=== PATIENT | female | born 1945 | race Caucasian/White ===

== ENCOUNTER 2022-08-14 16:59 | Emergency (ER) | payer OTHER, SELFPAY ==
--- NOTE | 2022-08-14 17:12 | ED_ITS ---
HPI - Headache General Chief Complaint: General Medical <Jade Crenshaw CNP - Last Filed: 08/14/22 17:22> Stated Complaint: headache, knee pain <Jade Crenshaw CNP - Last Filed: 08/14/22 17:22> Time Seen by Provider: 08/14/22 21:07 <Jade Crenshaw CNP - Last Filed: 08/14/22 17:22> Source: patient <Fatoumata Murry MD - Last Filed: 08/15/22 00:35> Mode of arrival: ambulatory <Fatoumata Murry MD - Last Filed: 08/15/22 00:35> Limitations: no limitations <Fatoumata Murry MD - Last Filed: 08/15/22 00:35> History of Present Illness HPI Narrative: Patient comes to the emergency room stating that she thinks her electrolytes are off. Patient complaining of headaches, muscle cramps, fatigue, muscle weakness, and confusion; misplacing things, can not think straight. Symptoms are all progressing, not improving, particularly worse over the past 2 weeks. Patient denies chest pain or shortness of breath, no nausea vomiting or diarrhea. No URI or UTI symptoms. <Fatoumata Murry MD - Last Filed: 08/15/22 00:35> Related Data Home Medications: Previous Rx's Medication Instructions Recorded amlodipine 2.5 mg tablet 2.5 mg PO DAILY #14 tabs 08/14/22 nitrofurantoin 100 mg PO Q12H 7 days #14 caps 08/14/22 monohydrate/macrocrystals 100 mg capsule (Macrobid) olanzapine 5 mg tablet 5 mg PO BEDTIME PRN insomnia #10 08/14/22 tabs <Jade Crenshaw CNP - Last Filed: 08/14/22 17:22> Allergies/Adverse Reactions: Allergies Allergy/AdvReac Type Severity Reaction Status Date / Time cyclobenzaprine Allergy Severe I WENT Unverified 02/23/20 14:44 [From FLEXERIL] BLIND bupropion [From WELLBUTRIN] Allergy Intermediate Swelling, Unverified 07/03/22 10:25 ST, Itchy tongue dapsone Allergy Unknown Petachae Unverified 11/30/17 00:00 divalproex sodium Allergy Unknown INSOMNIA,AND Unverified 02/23/20 14:44 [From DEPAKOTE] OTHER RXNS doxycycline [DOXYCYCLINE] Allergy Unknown UNKNOWN, Unverified 02/23/20 14:44 tongue swelling Flexeril Allergy Unknown lost vision Unverified 11/30/17 00:00 gabapentin [GABAPENTIN] Allergy Unknown UNKNOWN, Unverified 02/23/20 14:44 unsure lamotrigine [LAMOTRIGINE] Allergy Unknown UNKNOWN Unverified 02/23/20 14:44 mirtazapine [MIRTAZAPINE] Allergy Unknown BEGAN OVER Unverified 02/23/20 14:44 EATING pantoprazole [PANTOPRAZOLE] Allergy Unknown HAD Unverified 02/23/20 14:44 REACTION , tongue swelling naproxen [NAPROXEN] AdvReac Unknown UNKNOWN Unverified 02/23/20 14:44 <Jade Crenshaw CNP - Last Filed: 08/14/22 17:22> Review of Systems Review of Systems: Constitutional : No Weight loss, No Fever, No Chills, No Night Sweats, complaining of fatigue ENT/Mouth : No Hearing loss, No Ear Pain, No Nasal Congestion, No Sinus Pain, No Hoarseness, No sore throat, No Rhinorrhea, No Swallowing Difficulty Eyes: No Eye Pain, No Swelling, No Redness, No Foreign Body, No Discharge, No Vision Changes Cardiovascular : No Chest Pain, No SOB, No Dyspnea on Exertion, No Orthopnea, No Edema, No Palpitations Respiratory : No Cough, No Sputum, No Wheezing, No Smoke Exposure, No Dyspnea Gastrointestinal : No Nausea, No Vomiting, No Diarrhea, No Constipation, No abdominal Pain, No Hematochezia, No Melena Genitourinary : no irregular bleeding, No Dysuria, No Urinary Frequency, No Hematuria, No Urinary Incontinence, No Urgency, No Flank Pain, No Urinary Flow Changes, No Hesitancy Musculoskeletal : muscle cramps, fatigue, all body muscle weakness Skin : No Skin Lesions, No rash Neuro : No Weakness, No Numbness, No Paresthesias, No Loss of Consciousness, No Dizziness, No Headache Psych : No Anxiety/Panic, No Depression, No SI/HI/AH/VH, No Social Issues, Heme/Lymph: No Bruising, No Bleeding,No Lymphadenopathy Endocrine : No Polyuria, No Polydipsia, No Temperature Intolerance <Fatoumata Murry MD - Last Filed: 08/15/22 00:35> [facility] Social History Social History: Social History Advance Directives: No Advance Directives Information Provided: No <Jade Crenshaw CNP - Last Filed: 08/14/22 17:22> Physical Exam Vital Signs: Vital Signs: Last Vital Signs Temp 98.3 F 08/14/22 21:35 Pulse 60 08/14/22 21:35 Resp 15 08/14/22 21:35 BP 180/78 H 08/14/22 21:35 Pulse Ox 100 08/14/22 21:35 O2 Del Method 08/14/22 21:35 BMI result Body Mass Index 26.5 <Jade Crenshaw CNP - Last Filed: 08/14/22 17:22> Vital Signs: Last Vital Signs Temp 98.3 F 08/14/22 21:35 Pulse 60 08/14/22 21:35 Resp 15 08/14/22 21:35 BP 180/78 H 08/14/22 21:35 Pulse Ox 100 08/14/22 21:35 O2 Del Method 08/14/22 21:35 BMI result Body Mass Index 26.5 <Fatoumata Murry MD - Last Filed: 08/15/22 00:35> Course Course Course Narrative: This is an RME: Additional HPI, ROS, PE not included below will be deferred to primary provider. Patient is a 76-year-old female who presents to the emergency department for evaluation of multiple complaints. She reports concern that some things not right with my electrolytes , expressing issues with sodium, not certain if high or low, reportedly an ongoing problem since December 2021. Reports headaches, muscle cramps, fatigue, muscle weakness, and confusion; misplacing things, can not think straight. Symptoms are all progressing, not improving, particularly worse over the past 2 weeks. PCP is through [facility], has been unable to get an appointment. <Jade Crenshaw CNP - Last Filed: 08/14/22 17:22> Medical Decision Making Medical Decision Making MDM Narrative: Patient's hematology unremarkable, patient's electrolytes are perfect. Patient tested negative for COVID and influenza. -urinalysis pending -blood pressure 188/88 initially, blood pressure check pending. Recheck blood pressure was 180/78. -patient denies any headache, visual changes. Patient states that she feels very anxious, requesting a benzo to help her relax. -also, discussed with the patient that she has a mild UTI, patient was given the 1st dose of Macrobid in the emergency room. -patient requesting to be treated for hypertension. I discussed with the patient that we can treat anxiety 1st, then she can follow up with the primary care physician. However, patient very anxious that she does not have any hypertensive medication. Patient agreeable to take a blood pressure medication tablet here in the ED and then will pick it up at her pharmacy. -patient states that she has been complaining of insomnia in the last few days, requesting medication for insomnia -I ordered several medications for her including her 1st day of antibiotics. I was informed by the patient's nurse that the patient eloped before getting any medications, repeat blood pressure or papers <Ftaoumata Murry MD - Last Filed: 08/15/22 00:35> Differential Diagnosis Differential Diagnoses: The differential diagnosis associated with the presentation includes (Viral syndrome, hypertension, anxiety) <Fatoumata Murry MD - Last Filed: 08/15/22 00:35> Lab Data MDM Lab Attestation statement: I reviewed the patient's lab results. <Fatoumata Murry MD - Last Filed: 08/15/22 00:35> Result Diagrams: 08/14/22 17:36 08/14/22 17:36 <Jade Crenshaw CNP - Last Filed: 08/14/22 17:22> Labs: Lab Results 08/14/22 08/14/22 08/14/22 Range/Units 17:36 17:36 17:36 WBC 7.6 (4.8-10.8) X10*3/uL RBC 4.38 (4.20-5.50) X10*6/uL Hgb 13.1 (12.0-16.0) g/dl Hct 39.5 (37.0-47.0) % MCV 90.2 (80.0-98.0) fL MCH 29.9 (27.0-33.0) pg MCHC 33.2 (31.0-35.0) g/dl RDW 12.6 (11.0-16.0) % Plt Count 235 (160-400) X10*3/uL MPV 9.5 (9.4-12.3) fL Immature Gran % (Auto) 0.1 (0.0-0.4) % Neut % (Auto) 46.2 (45-73) % Lymph % (Auto) 41.4 H (20-40) % [place] % (Auto) 7.2 (2-11) % Eos % (Auto) 4.2 H (0-4) % Baso % (Auto) 0.9 (0-2) % Lymph # (Auto) 3.2 (1.2-4.9) X10*3/uL [place] # (Auto) 0.6 (0.1-1.2) X10*3/uL Eos # (Auto) 0.3 (0.0-0.4) X10*3/uL Baso # (Auto) 0.1 (0.0-0.2) X10*3/uL Abs Immat Gran (auto) 0.01 (0.00-0.03) X10*3/uL Absolute Neuts (auto) 3.5 (2.0-8.3) x10*3/uL Absolute Nucleated RBC 0.000 (0.0-0.012) X10*3/uL Nucleated RBC % (auto) 0.0 (0.0-0.2) /100WBC Sodium 138 (135-145) mmol/L Potassium 4.1 (3.3-5.1) mmol/L Chloride 101 (96-108) mmol/L Carbon Dioxide 26 (22-29) mmol/L Anion Gap 15 (12-20) BUN 16 (9-16) mg/dL Creatinine 0.87 (0.5-1.4) mg/dL Estim Creat Clear Calc 47.3 Estimated GFR > 60 Random Glucose 101 (60-115) mg/dL Calcium 9.6 (8.4-10.2) mg/dL Magnesium 1.9 (1.6-2.6) mg/dL Total Bilirubin 0.5 (0.0-1.0) mg/dL AST 20 (5-31) U/L ALT 10 (0-31) U/L Alkaline Phosphatase 86 (39-117) U/L Troponin I High Sens (<3.5-17.0) ng/L Total Protein 6.7 (6.5-8.0) g/dL Albumin 4.3 (3.5-5.0) g/dL Lipase 74 (8-78) U/L Urine Color Urine Appearance Urine pH (5.0-9.0) Ur Specific [place] (1.005-1.025) Urine Protein (Neg-Trace) mg/dL Urine Glucose (UA) (Negative) mg/dL Urine Ketones (Negative) mg/dL Urine Blood (Negative) Urine Nitrite (Negative) Ur Leukocyte Esterase (Negative) Urine RBC (0-2) /HPF Urine WBC (0-5) /HPF Ur Squamous Epith Cells (0-2) /HPF Urine Bacteria (None Seen) Hyaline Casts (0-2) /LPF COVID-19 (SONIYA) (Negative) COVID-19 Clin Com Influenza Type A (LOVE) Negative (Negative) Influenza Type B (LOVE) Negative (Negative) Influenza A & B Note See Note 08/14/22 08/14/22 08/14/22 Range/Units 17:36 17:36 21:23 WBC (4.8-10.8) X10*3/uL RBC (4.20-5.50) X10*6/uL Hgb (12.0-16.0) g/dl Hct (37.0-47.0) % MCV (80.0-98.0) fL MCH (27.0-33.0) pg MCHC (31.0-35.0) g/dl RDW (11.0-16.0) % Plt Count (160-400) X10*3/uL MPV (9.4-12.3) fL Immature Gran % (Auto) (0.0-0.4) % Neut % (Auto) (45-73) % Lymph % (Auto) (20-40) % [place] % (Auto) (2-11) % Eos % (Auto) (0-4) % Baso % (Auto) (0-2) % Lymph # (Auto) (1.2-4.9) X10*3/uL [place] # (Auto) (0.1-1.2) X10*3/uL Eos # (Auto) (0.0-0.4) X10*3/uL Baso # (Auto) (0.0-0.2) X10*3/uL Abs Immat Gran (auto) (0.00-0.03) X10*3/uL Absolute Neuts (auto) (2.0-8.3) x10*3/uL Absolute Nucleated RBC (0.0-0.012) X10*3/uL Nucleated RBC % (auto) (0.0-0.2) /100WBC Sodium (135-145) mmol/L Potassium (3.3-5.1) mmol/L Chloride (96-108) mmol/L Carbon Dioxide (22-29) mmol/L Anion Gap (12-20) BUN (9-16) mg/dL Creatinine (0.5-1.4) mg/dL Estim Creat Clear Calc Estimated GFR Random Glucose (60-115) mg/dL Calcium (8.4-10.2) mg/dL Magnesium (1.6-2.6) mg/dL Total Bilirubin (0.0-1.0) mg/dL AST (5-31) U/L ALT (0-31) U/L Alkaline Phosphatase (39-117) U/L Troponin I High Sens 6.8 (<3.5-17.0) ng/L Total Protein (6.5-8.0) g/dL Albumin (3.5-5.0) g/dL Lipase (8-78) U/L Urine Color Yellow Urine Appearance Clear Urine pH 5.5 (5.0-9.0) Ur Specific [place] <= 1.005 (1.005-1.025) Urine Protein Negative (Neg-Trace) mg/dL Urine Glucose (UA) Negative (Negative) mg/dL Urine Ketones Negative (Negative) mg/dL Urine Blood Negative (Negative) Urine Nitrite Negative (Negative) Ur Leukocyte Esterase Large (3+) H (Negative) Urine RBC 0-2 (0-2) /HPF Urine WBC 11-20 H (0-5) /HPF Ur Squamous Epith Cells 0-2 (0-2) /HPF Urine Bacteria None Seen (None Seen) Hyaline Casts 0-2 (0-2) /LPF COVID-19 (SONIYA) Negative (Negative) COVID-19 Clin Com See Note Influenza Type A (LOVE) (Negative) Influenza Type B (LOVE) (Negative) Influenza A & B Note <Jade Rudolph Flower, [employer] - Last Filed: 08/14/22 17:22> Lab Results 08/14/22 08/14/22 08/14/22 Range/Units 17:36 17:36 17:36 WBC 7.6 (4.8-10.8) X10*3/uL RBC 4.38 (4.20-5.50) X10*6/uL Hgb 13.1 (12.0-16.0) g/dl Hct 39.5 (37.0-47.0) % MCV 90.2 (80.0-98.0) fL MCH 29.9 (27.0-33.0) pg MCHC 33.2 (31.0-35.0) g/dl RDW 12.6 (11.0-16.0) % Plt Count 235 (160-400) X10*3/uL MPV 9.5 (9.4-12.3) fL Immature Gran % (Auto) 0.1 (0.0-0.4) % Neut % (Auto) 46.2 (45-73) % Lymph % (Auto) 41.4 H (20-40) % [place] % (Auto) 7.2 (2-11) % Eos % (Auto) 4.2 H (0-4) % Baso % (Auto) 0.9 (0-2) % Lymph # (Auto) 3.2 (1.2-4.9) X10*3/uL [place] # (Auto) 0.6 (0.1-1.2) X10*3/uL Eos # (Auto) 0.3 (0.0-0.4) X10*3/uL Baso # (Auto) 0.1 (0.0-0.2) X10*3/uL Abs Immat Gran (auto) 0.01 (0.00-0.03) X10*3/uL Absolute Neuts (auto) 3.5 (2.0-8.3) x10*3/uL Absolute Nucleated RBC 0.000 (0.0-0.012) X10*3/uL Nucleated RBC % (auto) 0.0 (0.0-0.2) /100WBC Sodium 138 (135-145) mmol/L Potassium 4.1 (3.3-5.1) mmol/L Chloride 101 (96-108) mmol/L Carbon Dioxide 26 (22-29) mmol/L Anion Gap 15 (12-20) BUN 16 (9-16) mg/dL Creatinine 0.87 (0.5-1.4) mg/dL Estim Creat Clear Calc 47.3 Estimated GFR > 60 Random Glucose 101 (60-115) mg/dL Calcium 9.6 (8.4-10.2) mg/dL Magnesium 1.9 (1.6-2.6) mg/dL Total Bilirubin 0.5 (0.0-1.0) mg/dL AST 20 (5-31) U/L ALT 10 (0-31) U/L Alkaline Phosphatase 86 (39-117) U/L Troponin I High Sens (<3.5-17.0) ng/L Total Protein 6.7 (6.5-8.0) g/dL Albumin 4.3 (3.5-5.0) g/dL Lipase 74 (8-78) U/L Urine Color Urine Appearance Urine pH (5.0-9.0) Ur Specific [place] (1.005-1.025) Urine Protein (Neg-Trace) mg/dL Urine Glucose (UA) (Negative) mg/dL Urine Ketones (Negative) mg/dL Urine Blood (Negative) Urine Nitrite (Negative) Ur Leukocyte Esterase (Negative) Urine RBC (0-2) /HPF Urine WBC (0-5) /HPF Ur Squamous Epith Cells (0-2) /HPF Urine Bacteria (None Seen) Hyaline Casts (0-2) /LPF COVID-19 (SONIYA) (Negative) COVID-19 Clin Com Influenza Type A (LOVE) Negative (Negative) Influenza Type B (LOVE) Negative (Negative) Influenza A & B Note See Note 08/14/22 08/14/22 08/14/22 Range/Units 17:36 17:36 21:23 WBC (4.8-10.8) X10*3/uL RBC (4.20-5.50) X10*6/uL Hgb (12.0-16.0) g/dl Hct (37.0-47.0) % MCV (80.0-98.0) fL MCH (27.0-33.0) pg MCHC (31.0-35.0) g/dl RDW (11.0-16.0) % Plt Count (160-400) X10*3/uL MPV (9.4-12.3) fL Immature Gran % (Auto) (0.0-0.4) % Neut % (Auto) (45-73) % Lymph % (Auto) (20-40) % [place] % (Auto) (2-11) % Eos % (Auto) (0-4) % Baso % (Auto) (0-2) % Lymph # (Auto) (1.2-4.9) X10*3/uL [place] # (Auto) (0.1-1.2) X10*3/uL Eos # (Auto) (0.0-0.4) X10*3/uL Baso # (Auto) (0.0-0.2) X10*3/uL Abs Immat Gran (auto) (0.00-0.03) X10*3/uL Absolute Neuts (auto) (2.0-8.3) x10*3/uL Absolute Nucleated RBC (0.0-0.012) X10*3/uL Nucleated RBC % (auto) (0.0-0.2) /100WBC Sodium (135-145) mmol/L Potassium (3.3-5.1) mmol/L Chloride (96-108) mmol/L Carbon Dioxide (22-29) mmol/L Anion Gap (12-20) BUN (9-16) mg/dL Creatinine (0.5-1.4) mg/dL Estim Creat Clear Calc Estimated GFR Random Glucose (60-115) mg/dL Calcium (8.4-10.2) mg/dL Magnesium (1.6-2.6) mg/dL Total Bilirubin (0.0-1.0) mg/dL AST (5-31) U/L ALT (0-31) U/L Alkaline Phosphatase (39-117) U/L Troponin I High Sens 6.8 (<3.5-17.0) ng/L Total Protein (6.5-8.0) g/dL Albumin (3.5-5.0) g/dL Lipase (8-78) U/L Urine Color Yellow Urine Appearance Clear Urine pH 5.5 (5.0-9.0) Ur Specific [place] <= 1.005 (1.005-1.025) Urine Protein Negative (Neg-Trace) mg/dL Urine Glucose (UA) Negative (Negative) mg/dL Urine Ketones Negative (Negative) mg/dL Urine Blood Negative (Negative) Urine Nitrite Negative (Negative) Ur Leukocyte Esterase Large (3+) H (Negative) Urine RBC 0-2 (0-2) /HPF Urine WBC 11-20 H (0-5) /HPF Ur Squamous Epith Cells 0-2 (0-2) /HPF Urine Bacteria None Seen (None Seen) Hyaline Casts 0-2 (0-2) /LPF COVID-19 (SON[facility]YA) Negative (Negative) COVID-19 Clin Com See Note Influenza Type A (LOVE) (Negative) Influenza Type B (LOVE) (Negative) Influenza A & B Note <Fatoumata Murry MD - Last Filed: 08/15/22 00:35> Discharge Plan Discharge Clinical Impression: Urinary tract infection, Hypertension, Insomnia <Jade Crenshaw CNP - Last Filed: 08/14/22 17:22> Patient Disposition: Elopement <Jade Crenshaw CNP - Last Filed: 08/14/22 17:22> Instructions: Hypertension (ED), Insomnia (ED), Urinary Tract Infection in Older Adults (ED) <Jade Crenshaw CNP - Last Filed: 08/14/22 17:22> Additional Instructions: Please follow-up with your primary care physician tomorrow. If you have any worsening or new symptoms, please return to the emergency room or call 911 <Jade Crenshaw CNP - Last Filed: 08/14/22 17:22> Prescriptions: New nitrofurantoin monohyd/m-cryst [Macrobid] 100 mg capsule 100 mg PO Q12H 7 Days Qty: 14 0RF Rx Instructions: must administer with a meal/food amlodipine 2.5 mg tablet 2.5 mg PO DAILY Qty: 14 0RF olanzapine 5 mg tablet 5 mg PO BEDTIME PRN (Reason: insomnia) Qty: 10 0RF <Jade Crenshaw CNP - Last Filed: 08/14/22 17:22>
[2022-08-14 17:19] VITALS: BP 189/97; PULSE 73; RESP 18; TEMP 36.4; O2SAT 97; BMI 26.5
--- NOTE | 2022-08-14 17:22 | ECG_ITS ---
Test Reason : WEAKNESS Blood Pressure : / mmHG Vent. Rate : 061 BPM Atrial Rate : 061 BPM P-R Int : 188 ms QRS Dur : 078 ms QT Int : 392 ms P-R-T Axes : 072 025 044 degrees QTc Int : 394 ms Normal sinus rhythm Normal ECG When compared with ECG of 26-MAY-2017 12:08, No significant change was found Referred By: Jade Crenshaw Electronically Signed By:HILDA TORRE
[2022-08-14 17:43] LABS: MANUAL DIFF FLAG NO
[2022-08-14 17:50] LABS: Basophils Absolute Auto 0.1 X10*3/uL (0.0-0.2); Basophils Percent Auto 0.9 % (0-2); Eosinophils Absolute Auto 0.3 X10*3/uL (0.0-0.4); Eosinophils Percent Auto 4.2 % (0-4); Hematocrit 39.5 % (37.0-47.0); Hemoglobin 13.1 g/dl (12.0-16.0); Imm Gran Abs Auto 0.01 X10*3/uL (0.00-0.03); Imm Gran Pct Auto 0.1 % (0.0-0.4); Lymphocytes Absolute Auto 3.2 X10*3/uL (1.2-4.9); Lymphocytes Percent Auto 41.4 % (20-40); Mean Corpuscular HGB Conc 33.2 g/dl (31.0-35.0); Mean Corpuscular Hemoglobin 29.9 pg (27.0-33.0); Mean Corpuscular Volume 90.2 fL (80.0-98.0); Mean Platelet Volume 9.5 fL (9.4-12.3); Monocytes Absolute Auto 0.6 X10*3/uL (0.1-1.2); Monocytes Percent Auto 7.2 % (2-11); Neutrophils Absolute Auto 3.5 x10*3/uL (2.0-8.3); Neutrophils Percent Auto 46.2 % (45-73); Platelet Count 235 X10*3/uL (160-400); Red Blood Count 4.38 X10*6/uL (4.20-5.50); Red Cell Distribution Width 12.6 % (11.0-16.0); White Blood Count 7.6 X10*3/uL (4.8-10.8)
[2022-08-14 18:03] LABS: Alanine Aminotransferase 10 U/L (0-31); Albumin Level 4.3 g/dL (3.5-5.0); Alkaline Phosphatase 86 U/L (39-117); Anion Gap 15 (12-20); Aspartate Amino Transferase 20 U/L (5-31); Bilirubin Total 0.5 mg/dL (0.0-1.0); Blood Urea Nitrogen 16 mg/dL (9-16); Calcium 9.6 mg/dL (8.4-10.2); Carbon Dioxide 26 mmol/L (22-29); Chloride 101 mmol/L (96-108); Creatinine Clr Calc Pharmacy 47.3; Estimated Glomerular Filt Rate > 60; Glucose Random 101 mg/dL (60-115); Lipase 74 U/L (8-78); Magnesium 1.9 mg/dL (1.6-2.6); Potassium 4.1 mmol/L (3.3-5.1); Sodium 138 mmol/L (135-145); Total Protein 6.7 g/dL (6.5-8.0)
[2022-08-14 18:04] LABS: COVID-19 Test Negative (Negative); IDNOW Serial# 16C4AD1C
[2022-08-14 18:08] LABS: IDNOW Serial# BCCEAD1C; Influenza A Negative (Negative); Influenza B2 Negative (Negative)
[2022-08-14 18:10] LABS: Troponin-I High Sensitivity 6.8 ng/L (<3.5-17.0)
[2022-08-14 20:17] VITALS: BP 188/80; PULSE 67; RESP 15; TEMP 36.6; O2SAT 100
[2022-08-14 21:30] LABS: Appearance Urine Clear; Color Urine Yellow; Glucose Urine UA Negative (Negative); Leukocyte Esterase Urine Large (3+) (Negative); Nitrite Urine Negative (Negative); PH 5.5 (5.0-9.0); Specific Gravity - Urine <= 1.005 (1.005-1.025); UMIC TRIGGER UACC YES; Urine Blood Negative (Negative); Urine Ketones Negative (Negative); Urine Protein Negative (Neg-Trace)
[2022-08-14 21:34] LABS: Bacteria Urine None Seen (None Seen); Hyaline Casts Urine 0-2 /LPF (0-2); RBC Urine 0-2 /HPF (0-2); Squamous Epithelial Cell Urine 0-2 /HPF (0-2); UACC Culture Trigger YES
[2022-08-14 21:35] VITALS: BP 180/78; PULSE 60; RESP 15; TEMP 36.8; O2SAT 100
== END 2022-08-15 03:41 | disposition left against medical advice (07) ==
PROVIDERS: Nurse Practitioner Family; Emergency Provider Emergency Medicine
DX: N39.0 Urinary tract infection, site not specified (principal); I10 Essential (primary) hypertension; G47.00 Insomnia, unspecified; R51.9 Headache, unspecified; M25.562 Pain in left knee; M25.561 Pain in right knee; Z20.822 Contact with and (suspected) exposure to COVID-19; Z20.828 Contact with and (suspected) exposure to other viral communicable diseases; Z79.899 Other long term (current) drug therapy
CPT/HCPCS: 36415; 80053; 81001; 83690; 83735; 84484; 85025; 87086; 87502; 87635; 93005; 99283; 99284

== ENCOUNTER 2022-12-12 10:22 | Outpatient (REF) | payer MEDICARE, MEDICAID, SELFPAY ==
[2022-12-12 10:41] LABS: MANUAL DIFF FLAG NO
[2022-12-12 11:59] LABS: Basophils Absolute Auto 0.1 X10*3/uL (0.0-0.2); Basophils Percent Auto 1.2 % (0-2); Eosinophils Absolute Auto 0.3 X10*3/uL (0.0-0.4); Eosinophils Percent Auto 4.9 % (0-4); Hemoglobin 12.5 g/dl (12.0-16.0); Imm Gran Abs Auto 0.02 X10*3/uL (0.00-0.03); Imm Gran Pct Auto 0.3 % (0.0-0.4); Lymphocytes Absolute Auto 1.9 X10*3/uL (1.2-4.9); Lymphocytes Percent Auto 32.8 % (20-40); Mean Corpuscular HGB Conc 32.1 g/dl (31.0-35.0); Mean Corpuscular Hemoglobin 29.6 pg (27.0-33.0); Mean Corpuscular Volume 92.4 fL (80.0-98.0); Mean Platelet Volume 9.3 fL (9.4-12.3); Monocytes Absolute Auto 0.5 X10*3/uL (0.1-1.2); Monocytes Percent Auto 8.3 % (2-11); Neutrophils Absolute Auto 3.1 x10*3/uL (2.0-8.3); Neutrophils Percent Auto 52.5 % (45-73); Platelet Count 268 X10*3/uL (160-400); Red Blood Count 4.22 X10*6/uL (4.20-5.50); Red Cell Distribution Width 12.9 % (11.0-16.0); White Blood Count 5.9 X10*3/uL (4.8-10.8)
[2022-12-12 12:59] LABS: Alanine Aminotransferase 14 U/L (0-31); Albumin Level 4.1 g/dL (3.5-5.0); Alkaline Phosphatase 75 U/L (39-117); Anion Gap 12 (12-20); Aspartate Amino Transferase 24 U/L (5-31); Bilirubin Total 0.5 mg/dL (0.0-1.0); Blood Urea Nitrogen 16 mg/dL (9-16); Calcium 9.8 mg/dL (8.4-10.2); Carbon Dioxide 27 mmol/L (22-29); Chloride 106 mmol/L (96-108); Cholesterol 237 mg/dL; Estimated Glomerular Filt Rate > 60; Free T4 (Free Thyroxine) 0.92 ng/dL (0.71-1.85); Glucose Random 90 mg/dL (60-115); HDL Cholesterol 74 mg/dL; LDL Cholesterol Calculated 150 mg/dl; Potassium 4.6 mmol/L (3.3-5.1); Sodium 140 mmol/L (135-145); Thyroid Stimulating Hormone 0.96 uIU/mL (0.32-4.0); Total Protein 6.9 g/dL (6.5-8.0); Triglycerides 67 mg/dL; Vitamin D 25-OH Total 54.6 ng/mL (>30)
[2022-12-12 13:15] LABS: Folate 19.1 ng/mL (> or = 4.0); Vitamin B12 358 pg/mL (200-900)
== END 2022-12-12 10:23 | disposition home or self-care (01) ==
LOC: HO.LAB 10:22
PROVIDERS: PCP Internal Medicine; Visit Provider Internal Medicine
DX: K21.9 Gastro-esophageal reflux disease without esophagitis (principal); E78.00 Pure hypercholesterolemia, unspecified; M81.0 Age-related osteoporosis without current pathological fracture
CPT/HCPCS: 36415; 80053; 80061; 82306; 82607; 82746; 84439; 84443; 85025

== ENCOUNTER 2022-12-24 14:23 | Outpatient (AMB) | payer MEDICARE, MEDICAID, SELFPAY ==
--- NOTE | 2022-12-24 14:30 | A.OFFVIS_ITS ---
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 Allergies cyclobenzaprine [From FLEXERIL] Allergy (Severe, Verified 11/20/22 12:52) I WENT BLIND bupropion [From WELLBUTRIN] Allergy (Intermediate, Verified 11/20/22 12:52) Swelling, ST, Itchy tongue divalproex sodium [From DEPAKOTE] Allergy (Unknown, Verified 11/20/22 12:52) INSOMNIA,AND OTHER RXNS doxycycline [DOXYCYCLINE] Allergy (Unknown, Verified 11/20/22 13:17) UNKNOWN, tongue swelling Flexeril Allergy (Unknown, Verified 11/20/22 12:52) lost vision gabapentin [GABAPENTIN] Allergy (Unknown, Verified 11/20/22 13:17) UNKNOWN, unsure lamotrigine [LAMOTRIGINE] Allergy (Unknown, Verified 11/20/22 13:17) UNKNOWN HPI HPI Comments History of Present Illness Details Selena is a very pleasant 77 years old female who presents in my office with complains on pain of multiple pain generators. She reports pain in the cervical spine lumbar spine pain radiating in bilateral lower extremities sensation of cramps in bilateral lower extremities, widespread osteoarthritis, pain related to left knee replacement as well as right knee replacement and pain related to multiple surgeries on the neck as well as 1 surgery on the back. She reports that she cannot sleep normally because of her pain cannot do activities of daily living she can take care of herself but she cannot function normally. She is retired and do not work. She is self mobile but she needs walker for ambulation. She reports that heat and weather changes aggravate her pain, prolong sitting and movements aggravate her pain. She reports that cold application decrease her pain. She reports pain is being worse during the nighttime from 20:00. She reports that the pain is less severe during the daytime. In terms of tissue damage she reports her pain S throbbing in the neck stabbing in the lower back sharp in the neck cramping in the legs thighs toes and calfes, hot burning in the legs and in the neck tingling sensation in the hands sore hurting aching and heavy sensation all over the body tiring and exhausting sensation along the body and radiating pain from the neck to the right shoulder as well as radiating pain into bilateral hips. She had multiple images performed in the past including x-rays MRIs mg at [facility] and CT scans. She reports extensive history of physical therapy she reports that she does not do very well with physical therapy or pool therapy she had once chiropractic manipulation she had occupational therapy she tried herbal medications inform of turmeric and she tried 10s unit none of it helped her pain significantly. She reports that medications which helps her pain are Soma in combination with oxycodone/Percocet lidocaine patches and she takes clonazepam for insomnia she is also being prescribed methocarbamol. She reports history of multiple injections in the past including epidurals and intradiscal disc injections. Her past medical history significant for headaches hypertension fatigue dizziness and fainting history of posttraumatic stress disorder for which she needs to go for continuous psychotherapy. She reports pernicious anemia, she developed pernicious anemia when she was treated for stomach ulcer with medications which decreases observe luna of vitamin B12. 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 Her past surgical history is very extensive in 1990 she had C6-C7 fusion and L4- 5 fusion in 2004 she had her fusion extended to C4-C5 and C6. She reports bilateral knee surgeries. Social history she is retired, she does not smoke cigarettes does not drink alcohol does not use recreational drugs. She reports her parents due to homicide and alcohol. [facility] Medical History (Updated 12/24/22 @ 16:18 by Jayden Emerson MD) PUD (peptic ulcer disease) Pulmonary nodule Thyroid nodule Surgical History (Reviewed 12/24/22 @ 14:40 by Venice Mendoza [facility]) H/O cervical spine surgery History of cholecystectomy History of knee replacement History of lumbar surgery Family History (Updated 11/20/22 @ 13:01 by Christen Deleon [facility]) Mother No problems noted. Father No problems noted. Sister Breast cancer Sister Breast cancer Daughter No problems noted. Daughter No problems noted. Daughter No problems noted. Son No problems noted. Son No problems noted. Other Mental health disorder Substance use disorder Social History Housing: House Patient Tobacco Use Status: Never used Tobacco e-Cigarette/Vaping Use: Never Used Second Hand Smoke Exposure: No Current occupational status: retired Cognitive needs: No Hearing needs: No Vision needs: Yes Review of Systems Const All systems reviewed & are unremarkable except as noted in HPI and below Reports no additional complaints ENT Reports Normal hearing present Card Reports as per HPI Resp Reports no additional complaints GI Reports as per HPI Reports no additional complaints Musc Reports as per HPI Neuro Reports as per HPI, Reports Normal hearing present, Denies Abnormal speech present, Denies confusion and Denies Sensory deficit (Neuro) Psych Reports as per HPI and Denies confusion Physical Exam Vital Signs: Last Vital Signs Pulse 70 12/24/22 14:31 BP 187/81 H 12/24/22 14:31 Pulse Ox 96 12/24/22 14:31 Oxygen Delivery Method Room Air 12/24/22 14:31 BMI result Body Mass Index 28.9 Const General: no acute distress; No confusion Nutritional Appearance: obese morbidly obese Orientation/consciousness: patient oriented x3 and No confusion Eyes General: appearance normal, both eyes and all related structures Pupils: Equal, round and reactive pupils present EOM: EOMs intact bilaterally Neck Other: There are 2 scars on anterior right surface of the neck delineating previous cervical fusion surgeries the scar is a very well-healed without signs of infection. Neck: No full ROM Chest Chest palpation & inspection: normal inspection of the chest Resp Effort & Inspection: normal respiratory effort, able to speak in complete sentences, normal respiratory pattern, no audible wheezes and no cough Cardio Jugular venous distension: no JVD GI Inspection: Yes normal to inspection Back/Spine/Pelvis Other: Tenderness on palpation in paraspinal spinal region Ace spine Neuro General: patient oriented x3, gait normal and No confusion Cranial nerves: Yes CN's II-XII intact bilaterally, Yes Equal, round and reactive pupils present, Yes Normal hearing present and Yes Ability to bilaterally elevate shoulders present Speech: No Abnormal speech present Gait exam (Neuro): Normal gait present Motor exam (neuro): 5/5 motor strength present throughout Sensory Exam: No Sensory deficit (Neuro) Extrem General: No pedal edema Psych Speech and movement: Normal speech and movement present Affect: normal affect Attitude: cooperative Thought process: Normal thought process present Thought content: Normal thought content present Insight: Good insight present (Psych) Judgement: Good judgement present (Psych) Assessment & Plan Assessment & Plan (1) Postlaminectomy syndrome, cervical: Code(s): M96.1 - Postlaminectomy syndrome, not elsewhere classified (2) Postlaminectomy syndrome, lumbar: Code(s): M96.1 - Postlaminectomy syndrome, not elsewhere classified (3) Status post total knee replacement, bilateral: Code(s): Z96.653 - Presence of artificial knee joint, bilateral (4) Knee pain, bilateral: Code(s): M25.561 - Pain in right knee; M25.562 - Pain in left knee (5) PTSD (post-traumatic stress disorder): Comment: [facility] 2022 Code(s): F43.10 - Post-traumatic stress disorder, unspecified (6) Osteoporosis: Comment: 2021 Code(s): M81.0 - Age-related osteoporosis without current pathological fracture (7) Blood pressure elevated without history of HTN: Code(s): R03.0 - Elevated blood-pressure reading, without diagnosis of hypertension Plan Of this patient is suffering from multiple pain generators. I offered her multiple procedures which could be instrumental to help her pain. I offered her CrossReader spinal cord stimulator alpha battery with possibility to stimulate her neck as well as lower back with thoracic a lead position. As of her pain from total knee replacement I offered her genicular nerve blocks and following that PNS infrapatellar saphenous versus PNS suprapatellar saphenous versus femoral nerve PNS. Citing her history of PTSD patient expressed opinion that she will not be able pass through the psychological evaluation. She is waiting for an appointment with psychotherapist to improve her PTSD. She is asking me to start her on Soma medication I told her that I do not prescribe this medicine. I offered her baclofen which she said that she was taking it in the past and she had minimal side effects from that she had tizanidine the past and she reported multiple side effects from that. Unless she wants to proceed with psychological evaluation and neuromodulation no new appointment is necessary for this patient. Medications: New baclofen 10 mg PO TID 30 days 90 tabs 6RF Coding Level of Care Code New Pt Level 4 (89081) Diagnoses Postlaminectomy syndrome, cervical M96.1 Postlaminectomy syndrome, lumbar M96.1 Status post total knee replacement, bilateral Z96.653 Knee pain, bilateral M25.561; M25.562 PTSD (post-traumatic stress disorder) F43.10 Osteoporosis M81.0 Blood pressure elevated without history of HTN R03.0
[2022-12-24 14:31] VITALS: BP 187/81; PULSE 70; O2SAT 96; BMI 28.9
== END 2022-12-24 15:09 | disposition home or self-care (01) ==
PROVIDERS: PCP Internal Medicine; Visit Provider Anesthesiology
DX: M96.1 Postlaminectomy syndrome, not elsewhere classified (principal); Z96.653 Presence of artificial knee joint, bilateral; M25.561 Pain in right knee; M25.562 Pain in left knee; F43.10 Post-traumatic stress disorder, unspecified; M81.0 Age-related osteoporosis without current pathological fracture; R03.0 Elevated blood-pressure reading, without diagnosis of hypertension
CPT/HCPCS: 99204

== ENCOUNTER → 2022-12-24 14:23 | Outpatient (BNVA) | payer MEDICARE, MEDICAID, SELFPAY | PROVIDERS: PCP Internal Medicine; Visit Provider Anesthesiology | DX: M96.1 Postlaminectomy syndrome, not elsewhere classified (principal); M25.561 Pain in right knee; M25.562 Pain in left knee; M81.0 Age-related osteoporosis without current pathological fracture; R03.0 Elevated blood-pressure reading, without diagnosis of hypertension; F43.10 Post-traumatic stress disorder, unspecified | CPT/HCPCS: 99202 ==

== ENCOUNTER 2023-01-15 11:57 | Outpatient (AMB) | payer MEDICARE, MEDICAID, SELFPAY ==
[2023-01-15 12:10] VITALS: BP 158/78; PULSE 84; O2SAT 98; BMI 29.8
--- NOTE | 2023-01-15 12:10 | A.OFFPC_ITS ---
Vital Signs 01/15/23 12:10 Height 5 ft 2 in Weight 163 lb BMI 29.8 BP 158/78 H Blood Pressure Location Lt brachial Position Sitting Pulse 84 Pulse Source Pulse Oximeter Pulse Oximetry (%) 98 Oxygen Delivery Method Room Air Intake Visit Reasons: Follow up per dr leonard Allergies cyclobenzaprine [From FLEXERIL] Allergy (Severe, Verified 01/15/23 12:11) I WENT BLIND bupropion [From WELLBUTRIN] Allergy (Intermediate, Verified 01/15/23 12:11) Swelling, ST, Itchy tongue divalproex sodium [From DEPAKOTE] Allergy (Unknown, Verified 01/15/23 12:11) INSOMNIA,AND OTHER RXNS doxycycline [DOXYCYCLINE] Allergy (Unknown, Verified 01/15/23 12:11) UNKNOWN, tongue swelling Flexeril Allergy (Unknown, Verified 01/15/23 12:11) lost vision gabapentin [GABAPENTIN] Allergy (Unknown, Verified 01/15/23 12:11) UNKNOWN, unsure lamotrigine [LAMOTRIGINE] Allergy (Unknown, Verified 01/15/23 12:11) UNKNOWN Medication List - Last Reconciled 01/15/23 by Joaquin Leonard MD baclofen 10 mg PO TID 30 days calcium carbonate (Calcium) 1,000 mg PO DAILY cholecalciferol (vitamin D3) 25 mcg PO DAILY diphenhydramine HCl (Benadryl) 25 mg PO BEDTIME PRN fluoxetine 20 mg PO DAILY losartan 25 mg PO DAILY multivitamin 1 tab PO DAILY omega-3 fatty acids 1,000 mg PO DAILY Tobacco use date assessed: 11/20/22 Fall risk assessment: No Falls in past year Last assessed Fall Risk: 01/15/23 Dental Screening Dental Screen Date: 01/15/23 Did you have a dental visit in the last 12 months?: No Did you have a dental problem in the last 6 months where you did not have access to dental care?: No Was dental information given to patient?: No HPI Follow up per dr leonard HPI Details 77-year-old overweight female with multiple medical problems lumbar degenerative disc disease osteoporosis Schatzki's ring GERD PTSD last seen in November 2022. Patient also noted to have an elevated blood pressure at that time and advised to monitor. Blood work request as well as pain management referral for the low back pain.. Patient sent in an ultrasound that was done on her right leg in January 2022 with concerns about mendoza cyst. CT of the lower extremity showing left knee advanced osteoarthritis x-ray of the hip January 2013 minimal degenerative changes MRI of the lumbar spine January 2017 moderate to severe degenerative disc disease L1-L2 right foraminal disc protrusion L2 right postsurgical changes on L4-L5 and MRI of the lumbar spine October 2022 showing dege nerative changes on the lumbar spine with disc pathology causing compromise of bilateral nerve roots most prominent at the L1-L2 L4-L5 patient did meet with the pain management but patient only wanted Soma on the note.. PAtient is on losartan and was taking 3 x a week and just started QD this week -advised monitor for 2 months. asking for prednisone, gabapentin, Advised no soma and asking for nortriptylline PFSH Medical History (Updated 12/24/22 @ 16:18 by Jayden Emerson MD) PUD (peptic ulcer disease) Pulmonary nodule Thyroid nodule Surgical History H/O cervical spine surgery History of cholecystectomy History of knee replacement History of lumbar surgery Family History (Updated 11/20/22 @ 13:01 by Christen Deleon [facility]) Mother No problems noted. Father No problems noted. Sister Breast cancer Sister Breast cancer Daughter No problems noted. Daughter No problems noted. Daughter No problems noted. Son No problems noted. Son No problems noted. Other Mental health disorder Substance use disorder Social History Housing: [place] Patient Tobacco Use Status: Never used Tobacco e-Cigarette/Vaping Use: Never Used Second Hand Smoke Exposure: No Current occupational status: retired Cognitive needs: No Hearing needs: No Vision needs: Yes Questionnaire PHQ-9 Over the last 2 weeks, how often have you been bothered by any of the following problems? 1. Little interest or pleasure in doing things: several days 2. Feeling down, depressed, or hopeless: several days 3. Trouble falling or staying asleep, or sleeping too much: not at all 4. Feeling tired or having little energy: not at all 5. Poor appetite or overeating: not at all 6. Feeling bad about yourself - or that you are a failure or have let yourself or your family down: not at all 7. Trouble concentrating on things, such as reading the newspaper or watching television: not at all 8. Moving or speaking so slowly that other people could have noticed. Or the opposite - being so fidgety or restless that you have been moving around a lot more than usual: not at all 9. Thoughts that you would be better off or of hurting yourself in some way: not at all Total score: 2 Depression Screening Interpretation: Negative Source: Developed by Drs. Omero Back, Adriana Suarez, Emerson Tanner and colleagues, with an educational blaine from [employer]. Thrive Questionnaire Date Thrive assessed: 11/20/22 AUDIT C Alcohol Use Questionnaire (AUDIT-C) 1. How often do you have a drink containing alcohol?: Never 3. How often do you have six or more drinks on one occasion?: Never Total Score: 0 RAEANN-7 AMB Questionnaire RAEANN-7 Date RAEANN - 7 assessed: 11/20/22 Source: Developed by Drs. Omero Back, Adriana Suarez, Emerson Tanner and colleagues, with an educational blaine from [employer]. Physical exam (Primary Care) Vital Signs: Last Vital Signs Pulse 84 01/15/23 12:10 BP 158/78 H 01/15/23 12:10 Pulse Ox 98 01/15/23 12:10 Oxygen Delivery Method Room Air 01/15/23 12:10 BMI result Body Mass Index 29.8 Tobacco/Smoking Status: Tobacco use Status Tobacco use date assessed 11/20/22 01/15/23 12:18 Patient Tobacco Use Status Never used Tobacco 01/15/23 12:18 e-Cigarette/Vaping Use Never Used 01/15/23 12:18 PHQ-9: PHQ-9 Score PHQ-9: Total score 2 01/15/23 18:58 Depression Screening Interpretation: Negative Thrive Assessment: Date of Thrive Assessment Date Thrive assessed 11/20/22 01/15/23 12:18 Const General: alert; No acute distress Eyes Conjunctivae: conjunctivae normal Resp Auscultation: clear to auscultation bilaterally Cardio Rate: regular rate Rhythm: regular rhythm GI Inspection: Yes normal to inspection Extrem General: Yes normal to inspection and No edema Assessment and Plan Assessment & Plan (1) Postlaminectomy syndrome, lumbar: Code(s): M96.1 - Postlaminectomy syndrome, not elsewhere classified Plan: Keep active avoid lifting (2) PTSD (post-traumatic stress disorder): Comment: [facility] 2022 Code(s): F43.10 - Post-traumatic stress disorder, unspecified Plan: Continue with counseling and therapy (3) GERD (gastroesophageal reflux disease): Comment: 2017 Code(s): K21.9 - Gastro-esophageal reflux disease without esophagitis Plan: Avoid the foods that causes that usually spicy foods, tomato products, juices, coffee, soda and foods that your sensitive to. After eating do not lie down, allow 3-4 hours before in lie down. And keep the head of bed above 30 degrees to avoid the acid from going up. (4) Osteoporosis: Comment: 2021 Code(s): M81.0 - Age-related osteoporosis without current pathological fracture Plan: Calcium and vitamin-D. And keep active (5) Overweight (BMI 25.0-29.9): Code(s): E66.3 - Overweight Plan: Diet and exercise (6) Blood pressure elevated without history of HTN: Code(s): R03.0 - Elevated blood-pressure reading, without diagnosis of hypertension Plan: Admits taking losartan 3x a week only and just started 1 week ago and will have 2 months of this to monitor Medications: New prednisone 4 tabs QD x 2 days then 3 tabs QD x 2 days then 2 tabs Qd x 2 days then 1 tab QD x 2 days PO daily; 20 tabs 0RF J45.909 - Unspecified asthma, uncomplicated, M96.1 - Postlaminectomy syndrome, not elsewhere classified gabapentin 300 mg PO BEDTIME 30 caps 1RF M96.1 - Postlaminectomy syndrome, not elsewhere classified nortriptyline 10 mg PO BEDTIME 30 caps 0RF M96.1 - Postlaminectomy syndrome, not elsewhere classified Coding Level of Care Code Est Pt Level 4 (05626) Diagnoses Postlaminectomy syndrome, lumbar M96.1 PTSD (post-traumatic stress disorder) F43.10 GERD (gastroesophageal reflux disease) K21.9 Osteoporosis M81.0 Overweight (BMI 25.0-29.9) E66.3 Blood pressure elevated without history of HTN R03.0
== END 2023-01-15 12:59 | disposition home or self-care (01) ==
PROVIDERS: PCP Internal Medicine; Visit Provider Internal Medicine
DX: M96.1 Postlaminectomy syndrome, not elsewhere classified (principal); F43.10 Post-traumatic stress disorder, unspecified; K21.9 Gastro-esophageal reflux disease without esophagitis; M81.0 Age-related osteoporosis without current pathological fracture; E66.3 Overweight; R03.0 Elevated blood-pressure reading, without diagnosis of hypertension
CPT/HCPCS: 99214

== ENCOUNTER 2023-02-24 14:13 | Outpatient (AMB) | payer MEDICARE, MEDICAID, SELFPAY ==
[2023-02-24 14:15] VITALS: BP 152/80; PULSE 72; O2SAT 97
--- NOTE | 2023-02-24 14:15 | MHC.PC.OV ---
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 exam Director Human Services Required: No Accompanied by: Self / Same As Patient Allergies cyclobenzaprine [From FLEXERIL] Allergy (Severe, Verified 02/24/23 14:17) I WENT BLIND bupropion [From WELLBUTRIN] Allergy (Intermediate, Verified 02/24/23 14:17) Swelling, ST, Itchy tongue divalproex sodium [From DEPAKOTE] Allergy (Unknown, Verified 02/24/23 14:17) INSOMNIA,AND OTHER RXNS doxycycline [DOXYCYCLINE] Allergy (Unknown, Verified 02/24/23 14:17) UNKNOWN, tongue swelling Flexeril Allergy (Unknown, Verified 02/24/23 14:17) lost vision gabapentin [GABAPENTIN] Allergy (Unknown, Verified 02/24/23 14:17) UNKNOWN, unsure lamotrigine [LAMOTRIGINE] Allergy (Unknown, Verified 02/24/23 14:17) UNKNOWN Medication List - Last Reconciled 02/24/23 by Joaquin Leonard MD calcium carbonate (Calcium) 1,000 mg PO DAILY cholecalciferol (vitamin D3) 25 mcg PO DAILY fluoxetine 20 mg PO DAILY gabapentin 300 mg PO TID losartan 25 mg PO DAILY multivitamin 1 tab PO DAILY omega-3 fatty acids 1,000 mg PO DAILY Tobacco use date assessed: 11/20/22 Fall risk assessment: No Falls in past year Last assessed Fall Risk: 02/24/23 Dental Screening Dental Screen Date: 02/24/23 Did you have a dental visit in the last 12 months?: Yes Did you have a dental problem in the last 6 months where you did not have access to dental care?: No Was dental information given to patient?: Patient has dentist HPI pe HPI Details 77-year-old obese female with a history of post laminectomy syndrome lumbar, GERD osteoporosis last seen in January 2023 coming in for physical exam. Patient had an elevated blood pressure at that time. Recently received an MRI of the lumbar spine showing degenerative disc disease with L2-L3 causing anterior thecal indentation abutting on the right side exiting and bilateral traversing nerve roots. Same as with L3-L4 as for L4-L5 moderate to severe bilateral neural foraminal narrowing. Patient did have a bone density done March 2020 showing osteopenia [facility] Medical History (Updated 02/24/23 @ 15:07 by Joaquin Leonard MD) Blood pressure elevated without history of HTN Hypertension Pulmonary nodule Thyroid nodule PUD (peptic ulcer disease) Surgical History H/O cervical spine surgery History of lumbar surgery History of knee replacement History of cholecystectomy Family History Mother No problems noted. Father No problems noted. Sister Breast cancer Sister Breast cancer Daughter No problems noted. Daughter No problems noted. Daughter No problems noted. Son No problems noted. Son No problems noted. Other Mental health disorder Substance use disorder Social History Housing: House Patient Tobacco Use Status: Never used Tobacco e-Cigarette/Vaping Use: Never Used Second Hand Smoke Exposure: No service: No Current occupational status: retired Cognitive needs: No Hearing needs: No Vision needs: Yes Questionnaire Thrive Questionnaire Date Thrive assessed: 11/20/22 RAEANN-7 AMB Questionnaire RAEANN-7 Date RAEANN - 7 assessed: 11/20/22 Source: Developed by Drs. Omero Back, Adriana Suarez, Emerson Tanner and colleagues, with an educational blaine from [employer]. Review of Systems Const Denies poor appetite and Denies weakness Eyes Denies no additional complaints ENT Reports Normal hearing present, Denies dizziness, Denies nasal congestion, Denies tinnitus and Denies sore throat Card Denies chest pain, Denies syncope, Denies rapid heart rate and Denies dyspnea Resp Denies cough and Denies dyspnea GI Denies change in stool character, Reports constipation, Denies diarrhea, Denies nausea and Denies vomiting Denies urinary frequency, Denies difficulty voiding and Denies dysuria Neuro Reports Normal hearing present, Denies confusion, Denies dizziness, Denies syncope and Denies weakness Psych Denies confusion Physical exam (Primary Care) Vital Signs: Last Vital Signs Pulse 72 02/24/23 14:15 BP 152/80 H 02/24/23 14:15 Pulse Ox 97 02/24/23 14:15 Oxygen Delivery Method Room Air 02/24/23 14:15 BMI result Body Mass Index 30.0 Tobacco/Smoking Status: Tobacco use Status Tobacco use date assessed 11/20/22 02/24/23 14:20 Patient Tobacco Use Status Never used Tobacco 02/24/23 14:20 e-Cigarette/Vaping Use Never Used 02/24/23 14:20 Thrive Assessment: Date of Thrive Assessment Date Thrive assessed 11/20/22 02/24/23 14:20 Const General: No confusion Orientation/consciousness: No confusion HENMT Head: Yes normocephalic Ears: external ears normal and TM's normal bilaterally Face and sinus: Yes normal facial exam Mouth: moist mucous membranes Throat: Yes tonsils normal Eyes Conjunctivae: conjunctivae normal Pupils: Equal, round and reactive pupils present and Pupil accommodation reflex normal Direct Ophthalmoscopy: normal light reflex Neck Neck: No lymphadenopathy Thyroid: Thyroid normal Chest Chest palpation & inspection: normal inspection of the chest Resp Effort & Inspection: normal respiratory effort and no audible wheezes Auscultation: clear to auscultation bilaterally, no crackles, no wheezes and lung sounds not diminished Cardio Rate: regular rate Rhythm: regular rhythm Peripheral pulses: radial pulses present and dorsalis pedis present GI Other: declined Palpation (GI): no masses Auscultation: normal bowel sounds and normoactive bowel sounds Rectal Exam - Female: deferred Skin General skin exam: no rashes or lesions noted Rashes: no rashes Neuro General: No confusion Cranial nerves: Yes Equal, round and reactive pupils present and Yes Normal hearing present Cognition (Neuro): normal cognition Gait exam (Neuro): Normal gait present Motor exam (neuro): 5/5 motor strength present throughout Deep tendon reflexes (DTR's): Right brachioradialis reflex intensity grade: 2+, Left brachioradialis reflex intensity grade: 2+, Right patellar reflex intensity grade: 2+ and Left patellar reflex intensity grade: 2+ Extrem General: No edema Assessment and Plan Assessment & Plan (1) Annual physical exam: Code(s): Z00.00 - Encounter for general adult medical examination without abnormal findings (2) Postlaminectomy syndrome, lumbar: Code(s): M96.1 - Postlaminectomy syndrome, not elsewhere classified Plan: Keep active continue with gabapentin 300 mg twice a day (3) GERD (gastroesophageal reflux disease): Comment: 2017 Code(s): K21.9 - Gastro-esophageal reflux disease without esophagitis (4) Osteoporosis: Comment: 2021 Code(s): M81.0 - Age-related osteoporosis without current pathological fracture Plan: Discussed about calcium and vitamin-D and medications to help with bone density (5) Obesity (BMI 30.0-34.9): Code(s): E66.9 - Obesity, unspecified Plan: Diet and exercise (6) Lumbar degenerative disc disease: Comment: MRI January 2017 lumbar spine moderate to severe degenerative disc L1-L2 abuts on the exiting left L1 nerve root disc protrusion L2 nerve root postsurgical changes L4-L5 moderate spondylosis 10/2022 meRCY ddd LUMBAR WITH DISC PATH BILATERAL NERVE ROOT l1-2 AND l4-5 Code(s): M51.36 - Other intervertebral disc degeneration, lumbar region (7) PTSD (post-traumatic stress disorder): Comment: [facility] 2022 Code(s): F43.10 - Post-traumatic stress disorder, unspecified Plan: Continue with counseling and therapy. clonazepam prescribed. side effects discussed and aware (8) Hypertension: Code(s): I10 - Essential (primary) hypertension Plan: Continue with losartan 25 mg once a day. BP high still will increase dose (9) Dysphagia: Code(s): R13.10 - Dysphagia, unspecified Plan: GI series requested Orders: Orders FL barium swallow Today R13.10 - Dysphagia, unspecified FL upper GI series Today R13.10 - Dysphagia, unspecified Medications: New losartan 50 mg PO DAILY 30 tabs 4RF I10 - Essential (primary) hypertension clonazepam administer 30 minutes before bedtime 0.5 mg PO BEDTIME 30 days 30 tabs 1RF F43.10 - Post-traumatic stress disorder, unspecified Discontinued losartan Discontinued Reason: Change Referral Type 25 mg PO DAILY Coding Level of Care Code Est Pt Prev Care >65y(08773) Diagnoses Annual physical exam Z00.00 Postlaminectomy syndrome, lumbar M96.1 GERD (gastroesophageal reflux disease) K21.9 Osteoporosis M81.0 Obesity (BMI 30.0-34.9) E66.9 Lumbar degenerative disc disease M51.36 PTSD (post-traumatic stress disorder) F43.10 Hypertension I10 Dysphagia R13.10
== END 2023-02-24 15:24 | disposition home or self-care (01) ==
PROVIDERS: PCP Internal Medicine; Visit Provider Internal Medicine
DX: Z00.00 Encounter for general adult medical examination without abnormal findings (principal); K21.9 Gastro-esophageal reflux disease without esophagitis; F43.10 Post-traumatic stress disorder, unspecified; I10 Essential (primary) hypertension; M96.1 Postlaminectomy syndrome, not elsewhere classified; M81.0 Age-related osteoporosis without current pathological fracture; E66.9 Obesity, unspecified; M51.36 Other intervertebral disc degeneration, lumbar region; R13.10 Dysphagia, unspecified
CPT/HCPCS: 99397

== ENCOUNTER 2023-04-27 12:20 | Outpatient (AMB) | payer MEDICARE, MEDICAID, SELFPAY ==
[2023-04-27 12:38] VITALS: BP 152/80; PULSE 71; TEMP 36.9; O2SAT 98
--- NOTE | 2023-04-27 12:38 | A.OFFPC_ITS ---
Vital Signs 04/27/23 12:38 Height 5 ft 2 in Weight 164 lb 0.2 oz BMI 30.0 BP 152/80 H Blood Pressure Location Lt brachial Position Sitting Pulse 71 Pulse Source Pulse Oximeter Temp 98.5 F Temp Source Oral Pulse Oximetry (%) 98 Oxygen Delivery Method Room Air Intake Visit Reasons: Hypertension Allergies cyclobenzaprine [From FLEXERIL] Allergy (Severe, Verified 04/27/23 12:41) I WENT BLIND bupropion [From WELLBUTRIN] Allergy (Intermediate, Verified 04/27/23 12:41) Swelling, ST, Itchy tongue divalproex sodium [From DEPAKOTE] Allergy (Unknown, Verified 04/27/23 12:41) INSOMNIA,AND OTHER RXNS doxycycline [DOXYCYCLINE] Allergy (Unknown, Verified 04/27/23 12:41) UNKNOWN, tongue swelling Flexeril Allergy (Unknown, Verified 04/27/23 12:41) lost vision gabapentin [GABAPENTIN] Allergy (Unknown, Verified 04/27/23 12:41) UNKNOWN, unsure lamotrigine [LAMOTRIGINE] Allergy (Unknown, Verified 04/27/23 12:41) UNKNOWN losartan Adverse Reaction (Intermediate, Verified 04/27/23 13:07) sob Medication List - Last Reconciled 04/27/23 by Joaquin Leonard MD calcium carbonate (Calcium) 1,000 mg PO DAILY cholecalciferol (vitamin D3) 25 mcg PO DAILY clonazepam 0.5 mg PO BEDTIME 30 days doxepin 3 mg PO BEDTIME PRN fluoxetine 20 mg PO DAILY gabapentin 300 mg PO TID hydrochlorothiazide 12.5 mg PO QAM multivitamin 1 tab PO DAILY omega-3 fatty acids 1,000 mg PO DAILY Tobacco use date assessed: 04/27/23 Fall risk assessment: No Falls in past year Last assessed Fall Risk: 04/27/23 Dental Screening Dental Screen Date: 04/27/23 Did you have a dental visit in the last 12 months?: No Did you have a dental problem in the last 6 months where you did not have access to dental care?: No HPI Hypertension HPI Details 77-year-old obese female with a history of lumbar post laminectomy syndrome on gabapentin GERD osteoporosis lumbar degenerative disc disease PTSD hypertension last seen in February 2023. Patient was advised to have GI series. For dysphagia.. Review of the notes had a lumbar spine MR in October 2022 and a bone density showing osteopenia. started on losartan and states feels sob . And also is asking for something to help with sleep. And as far as for the PTSD patient is agreeable getting counseling also. As for vaccines declined. Patient also wants to check for autoimmune problems like sedimentation rate and discussed that we can do that. [facility] Medical History (Updated 02/24/23 @ 15:07 by Joaquin Leonard MD) Blood pressure elevated without history of HTN Hypertension Pulmonary nodule Thyroid nodule PUD (peptic ulcer disease) Surgical History H/O cervical spine surgery History of lumbar surgery History of knee replacement History of cholecystectomy Family History Mother No problems noted. Father No problems noted. Sister Breast cancer Sister Breast cancer Daughter No problems noted. Daughter No problems noted. Daughter No problems noted. Son No problems noted. Son No problems noted. Other Mental health disorder Substance use disorder Social History Housing: House Patient Tobacco Use Status: Never used Tobacco e-Cigarette/Vaping Use: Never Used Second Hand Smoke Exposure: No service: No Current occupational status: retired Cognitive needs: No Hearing needs: No Vision needs: Yes Questionnaire Thrive Questionnaire Date Thrive assessed: 11/20/22 AUDIT C Alcohol Use Questionnaire (AUDIT-C) 1. How often do you have a drink containing alcohol?: Never 3. How often do you have six or more drinks on one occasion?: Never Total Score: 0 RAEANN-7 AMB Questionnaire RAEANN-7 Date RAEANN - 7 assessed: 11/20/22 Source: Developed by Drs. Omero Back, Adriana Suarez, Emerson Tanner and colleagues, with an educational blaine from [employer]. Physical exam (Primary Care) Vital Signs: Last Vital Signs Temp 98.5 F 04/27/23 12:38 Pulse 71 04/27/23 12:38 BP 152/80 H 04/27/23 12:38 Pulse Ox 98 04/27/23 12:38 Oxygen Delivery Method Room Air 04/27/23 12:38 BMI result Body Mass Index 30.0 Tobacco/Smoking Status: Tobacco use Status Tobacco use date assessed 04/27/23 04/27/23 12:39 Patient Tobacco Use Status Never used Tobacco 04/27/23 12:39 e-Cigarette/Vaping Use Never Used 04/27/23 12:39 Thrive Assessment: Date of Thrive Assessment Date Thrive assessed 11/20/22 04/27/23 12:39 Const General: alert; No acute distress Eyes Conjunctivae: conjunctivae normal Resp Auscultation: clear to auscultation bilaterally Cardio Rate: regular rate Rhythm: regular rhythm GI Inspection: Yes normal to inspection Extrem General: Yes normal to inspection and No edema Assessment and Plan Assessment & Plan (1) Hypertension: Code(s): I10 - Essential (primary) hypertension Plan: Continue with blood pressure medication. Decrease salt intake and exercise patient takes losartan 50 mg once a day (2) Obesity (BMI 30.0-34.9): Code(s): E66.9 - Obesity, unspecified Plan: Diet and exercise (3) Postlaminectomy syndrome, lumbar: Code(s): M96.1 - Postlaminectomy syndrome, not elsewhere classified Plan: Keep active on gabapentin (4) PTSD (post-traumatic stress disorder): Comment: [facility] 2022 Code(s): F43.10 - Post-traumatic stress disorder, unspecified Plan: Continue with counseling and therapy (5) GERD (gastroesophageal reflux disease): Comment: 2017 Code(s): K21.9 - Gastro-esophageal reflux disease without esophagitis Plan: Avoid the foods that causes that usually spicy foods, tomato products, juices, coffee, soda and foods that your sensitive to. After eating do not lie down, allow 3-4 hours before in lie down. And keep the head of bed above 30 degrees to avoid the acid from going up. (6) Osteoporosis: Comment: 2021 Code(s): M81.0 - Age-related osteoporosis without current pathological fracture Plan: Keep active on calcium and vitamin-D (7) Insomnia: Code(s): G47.00 - Insomnia, unspecified Orders: Orders Erythrocyte Sedimentation Rate Today M96.1 - Postlaminectomy syndrome, not elsewhere classified C Reactive Protein Today M96.1 - Postlaminectomy syndrome, not elsewhere classified Referrals Psychiatry Referral F43.10 - Post-traumatic stress disorder, unspecified Pain Management Referral M96.1 - Postlaminectomy syndrome, not elsewhere classified Medications: New doxepin 3 mg PO BEDTIME PRN 30 tabs 0RF sleep I10 - Essential (primary) hypertension hydrochlorothiazide 12.5 mg PO QAM 30 tabs 3RF I10 - Essential (primary) hypertension Discontinued losartan Discontinued Reason: Patient Refused 50 mg PO DAILY 30 tabs 4RF I10 - Essential (primary) hypertension Coding Level of Care Code Tele New Pt Level 5 (21394) Diagnoses Hypertension I10 Obesity (BMI 30.0-34.9) E66.9 Postlaminectomy syndrome, lumbar M96.1 PTSD (post-traumatic stress disorder) F43.10 GERD (gastroesophageal reflux disease) K21.9 Osteoporosis M81.0 Insomnia G47.00
== END 2023-04-27 13:16 | disposition home or self-care (01) ==
PROVIDERS: PCP Internal Medicine; Visit Provider Internal Medicine
DX: I10 Essential (primary) hypertension (principal); E66.9 Obesity, unspecified; Z68.30 Body mass index [BMI] 30.0-30.9, adult; M96.1 Postlaminectomy syndrome, not elsewhere classified; F43.10 Post-traumatic stress disorder, unspecified; K21.9 Gastro-esophageal reflux disease without esophagitis; M81.0 Age-related osteoporosis without current pathological fracture; G47.00 Insomnia, unspecified
CPT/HCPCS: 99214

== ENCOUNTER 2023-04-27 13:23 | Outpatient (REF) | payer MEDICARE, MEDICAID, SELFPAY ==
[2023-04-27 14:40] LABS: Erythrocyte Sedimentation Rate 16 MM/HR (0-20)
[2023-04-27 14:47] LABS: C Reactive Protein < 0.10 mg/dL (< or = 0.50)
== END 2023-04-27 13:24 | disposition home or self-care (01) ==
LOC: HO.LAB 13:23
PROVIDERS: PCP Internal Medicine; Visit Provider Internal Medicine
DX: M96.1 Postlaminectomy syndrome, not elsewhere classified (principal)
CPT/HCPCS: 36415; 85652; 86140

== ENCOUNTER 2023-05-04 10:48 | Emergency (ER) | payer MEDICARE, MEDICAID, SELFPAY ==
--- NOTE | ~2023-05-04 | XR_ITS ---
EXAMINATION: XR CHEST CLINICAL INFORMATION: Weakness, near syncope. COMPARISON: CT scan of the chest of 10/30/2017. TECHNIQUE: 2 views of the chest were obtained. FINDINGS: There is no gross pneumothorax. Dextroscoliosis of the thoracic spine with multilevel degenerative changes. Heart size is normal. No pleural effusion. No focal consolidation to suggest pneumonia. XR/XR chest 2V IMPRESSION: No evidence of pneumonia. This study was presented today May 04, 2023 at 1:20 PM for interpretation. Stat results provided at this time as requested by referring provider.
[2023-05-04 11:18] VITALS: BP 149/80; PULSE 76; RESP 18; TEMP 36.9; O2SAT 96; BMI 30.2
--- NOTE | 2023-05-04 11:21 | ED_ITS ---
HPI - Neck Pain/Injury General Chief Complaint: Neck Pain/Injury Stated Complaint: Neck pain/bilateral arm pain/Weakness Time Seen by Provider: 05/04/23 11:43 Source: patient Mode of arrival: ambulatory Limitations: no limitations History of Present Illness HPI Narrative: 77-year-old female history of obesity, hypertension, post laminectomy syndrome, fusion of C4 through C6, PTSD, Schatzki ring, osteoporosis, osteoarthritis presenting to the emergency department with complaints of stiff neck for the past 5 days, started after wakening she reports her neck feels stiff in she is having hard time moving it. Denies associated headache, vision changes, trauma, fevers and chills. Patient also complaining of worsening shortness of breath over the past few weeks, she reports she usually goes on walks and has no issues for the past few weeks she has been having increasing shortness of breath followed by palpitations and lightheadedness. No associated chest pain this has never happened to her before. Does not wear oxygen. Denies recent sick contacts, viral illness, sore throat, atypical cough, nausea vomiting and abdominal pain. Related Data Home Medications Medication Instructions Recorded Confirmed calcium carbonate 600 mg calcium 1,000 mg PO DAILY 11/20/22 04/27/23 (1,500 mg) tablet (Calcium) cholecalciferol (vitamin D3) 25 25 mcg PO DAILY 11/20/22 04/27/23 mcg (1,000 unit) capsule fluoxetine 20 mg capsule 20 mg PO DAILY 11/20/22 04/27/23 multivitamin 1 tab PO DAILY 11/20/22 04/27/23 omega-3 fatty acids 1,000 mg 1,000 mg PO DAILY 11/20/22 04/27/23 capsule gabapentin 300 mg capsule 300 mg PO TID 02/24/23 04/27/23 Previous Rx's Medication Instructions Recorded clonazepam 0.5 mg tablet 0.5 mg PO BEDTIME 30 days #30 tabs 02/24/23 doxepin 3 mg tablet 3 mg PO BEDTIME PRN sleep #30 tabs 04/27/23 hydrochlorothiazide 12.5 mg tablet 12.5 mg PO QAM #30 tabs 04/27/23 acetaminophen 325 mg capsule 650 mg (2 x 325 mg) PO Q6H PRN 05/04/23 (Tylenol) pain #30 caps lidocaine 5 % topical patch 1 patch topical DAILY PRN pain #15 05/04/23 ea prednisone 20 mg tablet 20 mg PO DAILY 5 days #5 tabs 05/04/23 Allergies Allergy/AdvReac Type Severity Reaction Status Date / Time cyclobenzaprine Allergy Severe I WENT Verified 04/27/23 12:41 [From FLEXERIL] BLIND bupropion [From WELLBUTRIN] Allergy Intermediate Swelling, Verified 04/27/23 12:41 ST, Itchy tongue divalproex sodium Allergy Unknown INSOMNIA,AND Verified 04/27/23 12:41 [From DEPAKOTE] OTHER RXNS doxycycline [DOXYCYCLINE] Allergy Unknown UNKNOWN, Verified 04/27/23 12:41 tongue swelling Flexeril Allergy Unknown lost vision Verified 04/27/23 12:41 gabapentin [GABAPENTIN] Allergy Unknown UNKNOWN, Verified 04/27/23 12:41 unsure lamotrigine [LAMOTRIGINE] Allergy Unknown UNKNOWN Verified 04/27/23 12:41 losartan AdvReac Intermediate sob Verified 04/27/23 13:07 Review of Systems 2 Review of Systems: Constitutional : No Weight loss, No Fever, No Chills, + Fatigue, + Malaise ENT/Mouth : No sore throat, No Rhinorrhea Eyes: No Eye Pain, No Swelling, No Redness Cardiovascular : No Chest Pain, + SOB, No Dyspnea on Exertion, No Orthopnea, No Edema, + Palpitations Respiratory : No Cough, No Sputum, No Wheezing Gastrointestinal : No Nausea, No Vomiting, No Diarrhea, No Constipation, No abdominal Pain, No Hematochezia, No Melena Genitourinary : No Dysuria, No Urinary Frequency, No Hematuria, Musculoskeletal : No joint pain, No Myalgias, No Joint Swelling, + neck pain Skin : No Skin Lesions, No rash Neuro : No Weakness, No Numbness, + Dizziness, No Headache Psych : No Anxiety/Panic, No Depression All other systems reviewed and are negative Yes all other systems are reviewed and are negative [facility] Past Medical History Attestation statement: The following information was validated with the patient. Source: old records reviewed and nursing notes reviewed Medical History Blood pressure elevated without history of HTN Hypertension Pulmonary nodule Thyroid nodule PUD (peptic ulcer disease) Surgical History H/O cervical spine surgery History of lumbar surgery History of knee replacement History of cholecystectomy Family History Family History Mother No problems noted. Father No problems noted. Sister Breast cancer Sister Breast cancer Daughter No problems noted. Daughter No problems noted. Daughter No problems noted. Son No problems noted. Son No problems noted. Other Mental health disorder Substance use disorder Social History Housing: House Patient Tobacco Use Status: Never used Tobacco Smoked in Last 30 Days: No e-Cigarette/Vaping Use: Never Used Second Hand Smoke Exposure: No Use of substances other than those prescribed or required for medical reasons: No Advance Directives: No Advance Directives Information Provided: Yes service: No Current occupational status: retired Cognitive needs: No Hearing needs: No Vision needs: Yes Physical Exam 2 Vital Signs: Vital Signs: Last Vital Signs Temp 98.5 F 05/04/23 11:18 Pulse 76 05/04/23 11:18 Resp 18 05/04/23 11:18 BP 149/80 H 05/04/23 11:18 Pulse Ox 96 05/04/23 11:18 O2 Del Method Room Air 05/04/23 11:18 BMI result Body Mass Index 30.2 vss Appearance: Alert.? Oriented X3.? No acute distress.? Head: Normocephalic, atraumatic, no step-offs or deformities Eyes: Pupils equal, round and reactive to light.? Neck: Normal inspection.? Neck supple.? Negative Kernig and Brudzinski. Limited range of motion secondary to patient stating she has a stiff neck CVS: Normal heart rate and rhythm.? Pulses normal.? Respiratory: No respiratory distress.? Breath sounds normal.? Abdomen: Soft and nontender.? Skin: Skin warm and dry.? Normal skin color.? Normal skin turgor.? Extremities: No lower extremity edema.? No calf ttp. 5/5 strength to bilateral upper and lower extremities. 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 Back: No midline tenderness, no C-spine tenderness, full range of motion, no CVA tenderness bilaterally Neuro: Oriented X 3.? No motor deficit.? No sensory deficit. CN 2-12 intact . Ambulatory w/ steady gait normal coordination Course Course Course Narrative: This is a rapid medical exam. Deferred additional HPI, ROS, PE to primary provider. 77 yo female with history of post laminectomy syndrome here with neck pain x1 month, dizzy episode yesterday, diffuse joint pain, weakness, shortness of breath. Will obtain labs, EKG, CXR, covid screen VSS Reevaluation(s) Reevaluation #1: CBC unremarkable. Chemistry no acute findings. Troponin negative, EKG nonischemic, BNP 78, no signs of CHF or fluid overload on exam. D-dimer negative. X-ray unremarkable no evidence of pneumonia. COVID negative. UA and repat trop pending Time: 13:29 Reevaluation #2: 2nd troponin negative. Patient's heart score three ( risk of MACE of 0.9-1.7%) no need for admission no cp or SOB. Urine clean. Educated patient on diagnosis and treatment plan, answered all question, patient verbalizes understanding. At this time patient will be discharged home, advised to return with new or worsening symptoms. Educated on worrisome signs and symptoms and when to return. At this time I feel comfortable discharge home. Time: 14:24 Medications Administered Discontinued Medications Generic Name Dose Route Start Last Admin Trade Name Waylonq PRN Reason Stop Dose Admin Acetaminophen 975 mg 05/04/23 12:14 05/04/23 12:26 Acetaminophen 325 Mg Tablet PO 05/04/23 12:15 975 mg ONCE ONE Administration Lidocaine 1 patch 05/04/23 12:14 05/04/23 12:27 Lidocaine 4 % Patch Adh..Patch TRANSDERMA 05/04/23 12:15 1 patch ONCE ONE Administration Protocol Medical Decision Making Medical Decision Making [facility] Narrative: 1213 77-year-old female presents with stiff neck after awakening for the past 5 days also complaining of worsening shortness of breath this has been ongoing for the past week or so. Physical examination benign Neck pain likely torticollis versus cervical radiculopathy versus cervical sprain or strain. Unlikely epidural abscess, cervical myelopathy, cord compression. Shortness of breath likely secondary to physical deconditioning versus chronic lung conditions unlikely acute pulmonary embolism, CHF, ACS, pneumonia. No signs of acute respiratory distress at this time. Other differentials include near syncope versus dysrhythmia versus electrolyte abnormalities versus UTI. Less likely acute stroke Plan labs, imaging. Differential Diagnosis Differential Diagnoses: The differential diagnosis associated with the presentation includes Neck pain likely torticollis versus cervical radiculopathy versus cervical sprain or strain. Unlikely epidural abscess, cervical myelopathy, cord compression. Shortness of breath likely secondary to physical deconditioning versus chronic lung conditions unlikely acute pulmonary embolism, CHF, ACS, pneumonia. No signs of acute respiratory distress at this time Other differentials include near syncope versus dysrhythmia versus electrolyte abnormalities versus UTI. Less likely acute stroke Admission/Observation Consideration of admission/observation: Escalation of care including admission/observation considered possible Lab Data MDM Lab Attestation statement: I reviewed the patient's lab results. 05/04/23 11:41 05/04/23 11:41 Labs: Lab Results 05/04/23 05/04/23 05/04/23 Range/Units 11:41 12:31 13:43 WBC 9.0 (4.8-10.8) X10*3/uL RBC 4.13 L (4.20-5.50) X10*6/uL Hgb 12.3 (12.0-16.0) g/dl Hct 37.9 (37.0-47.0) % MCV 91.8 (80.0-98.0) fL MCH 29.8 (27.0-33.0) pg MCHC 32.5 (31.0-35.0) g/dl RDW 12.6 (11.0-16.0) % Plt Count 252 (160-400) X10*3/uL MPV 9.6 (9.4-12.3) fL Immature Gran % (Auto) 0.3 (0.0-0.4) % Neut % (Auto) 72.2 (45-73) % Lymph % (Auto) 17.3 L (20-40) % [place] % (Auto) 8.7 (2-11) % Eos % (Auto) 1.2 (0-4) % Baso % (Auto) 0.3 (0-2) % Lymph # (Auto) 1.6 (1.2-4.9) X10*3/uL [place] # (Auto) 0.8 (0.1-1.2) X10*3/uL Eos # (Auto) 0.1 (0.0-0.4) X10*3/uL Baso # (Auto) 0.0 (0.0-0.2) X10*3/uL Abs Immat Gran (auto) 0.03 (0.00-0.03) X10*3/uL Absolute Neuts (auto) 6.5 (2.0-8.3) x10*3/uL Absolute Nucleated RBC 0.000 (0.0-0.012) X10*3/uL Nucleated RBC % (auto) 0.0 (0.0-0.2) /100WBC D-Dimer High Sensitivty 225 NG/ML Sodium 136 (135-145) mmol/L Potassium 4.3 (3.3-5.1) mmol/L Chloride 102 (96-108) mmol/L Carbon Dioxide 27 (22-29) mmol/L Anion Gap 11 L (12-20) BUN 13 (9-16) mg/dL Creatinine 0.91 (0.5-1.4) mg/dL Estim Creat Clear Calc 47.4 Estimated GFR 60 Random Glucose 109 (60-115) mg/dL Calcium 9.3 (8.4-10.2) mg/dL Magnesium 2.0 (1.6-2.6) mg/dL Total Bilirubin 0.4 (0.0-1.0) mg/dL Direct Bilirubin 0.1 (0.0-0.5) mg/dL AST 18 (5-31) U/L ALT 8 (0-31) U/L Alkaline Phosphatase 67 (39-117) U/L Troponin I High Sens 4.7 5.6 (<3.5-17.0) ng/L B-Natriuretic Peptide 78 (<100) pg/mL Total Protein 7.0 (6.5-8.0) g/dL Albumin 3.9 (3.5-5.0) g/dL Urine Color Yellow Urine Appearance Clear Urine pH 6.0 (5.0-9.0) Ur Specific [place] 1.015 (1.005-1.025) Urine Protein Negative (Neg-Trace) mg/dL Urine Glucose (UA) Negative (Negative) mg/dL Urine Ketones Trace (Negative) mg/dL Urine Blood Negative (Negative) Urine Nitrite Negative (Negative) Ur Leukocyte Esterase Small (1+) H (Negative) Urine RBC 0-2 (0-2) /HPF Urine WBC 0-5 (0-5) /HPF Ur Squamous Epith Cells 0-2 (0-2) /HPF Urine Bacteria None Seen (None Seen) Hyaline Casts 0-2 (0-2) /LPF COVID-19 (SONIYA) Negative (Negative) COVID-19 Clin Com See Note Radiology Impression Discussion of test interpretation with radiology: I have reviewed the radiologist's reading. External Record Review External record reviewed: Inpatient record, Office record, Outpatient record, Prior outpatient labs, Prior outpatient radiology, Primary care record and Outside ED record Chronic Conditions Patient?s care impacted by: Hypertension Critical Care Time Critical Care Time Critical Care Time: No Discharge Plan Discharge Clinical Impression: Acute torticollis, Shortness of breath Patient Disposition: Home, Self-Care Instructions: Back Pain (ED), Neck Pain (ED), Shortness of Breath (ED) Additional Instructions: Take your medications as prescribed. If you were prescribed antibiotics today, it is important that you take your medication to their entirety, do not skip any doses, do not finish them early. Follow-up with your primary care provider this week. Return to the emergency department with new or worsening symptoms. Such as fevers, chills, chest pain, shortness of breath, nausea, vomiting, dizziness, headache, vision changes, lethargy In case of emergency call 911 Prescriptions: New prednisone 20 mg tablet 20 mg PO DAILY 5 Days Qty: 5 0RF lidocaine 5 % adhesive patch,medicated 1 patch topical DAILY PRN (Reason: pain) Qty: 15 0RF Rx Instructions: leave on most painful area for up to 12 hrs acetaminophen [Tylenol] 325 mg capsule 650 mg PO Q6H PRN (Reason: pain) Qty: 30 0RF No Action calcium carbonate [Calcium 600] 600 mg calcium (1,500 mg) tablet 1,000 mg PO DAILY cholecalciferol (vitamin D3) 25 mcg (1,000 unit) capsule 25 mcg PO DAILY multivitamin Tablet 1 tab PO DAILY omega-3 fatty acids 1,000 mg capsule 1,000 mg PO DAILY fluoxetine 20 mg capsule 20 mg PO DAILY gabapentin 300 mg capsule 300 mg PO TID clonazepam 0.5 mg tablet 0.5 mg PO BEDTIME 30 Days Qty: 30 1RF Rx Instructions: administer 30 minutes before bedtime hydrochlorothiazide 12.5 mg tablet 12.5 mg PO QAM Qty: 30 3RF doxepin 3 mg tablet 3 mg PO BEDTIME PRN (Reason: sleep) Qty: 30 0RF Referrals: Po,Joaquin Esparza MD [Primary Care Provider] - 2 days
--- NOTE | 2023-05-04 11:23 | ECG_ITS ---
Test Reason : NEAR SYNCOPE Blood Pressure : / mmHG Vent. Rate : 069 BPM Atrial Rate : 069 BPM P-R Int : 198 ms QRS Dur : 072 ms QT Int : 360 ms P-R-T Axes : 066 015 047 degrees QTc Int : 385 ms Normal sinus rhythm Low voltage QRS Borderline ECG When compared with ECG of 14-AUG-2022 17:28, No significant changes seen Referred By: Argenis Quiñonez Electronically Signed By:PEPE MARISCAL MD
--- OUTSIDE RECORDS SUMMARY | 2023-05-04 11:47 | XMS_ITS | Continuity of Care Document ---
Author Name Unknown Organization [facility] ter Address [address] [place] [id number] Care Team Providers Care Certified Dialysis Technician Name Role Phone Not on Staff, PCP Primary Care Physician Unavail able Encounter [facility] Date(s): 02/01/22 - 02/05/[address] [id number]- Encounter Diagnosis Depression(Final) - 02/01/22 Discharge Disposition: Disch/Trans to IP Rehab or unit w/in Hos Attending Physician: Fatoumata Crystal DO Admitting Physician: Fatoumata Crystal DO Referring Physician: Cj Encinas Allergies, Adverse Reactions, Alerts Substance Reaction Severity Status codeine Nausea present Active dapsone petechiae Active gabapentin MAJOR DEPRESSION Active nonsteroidal antiinflammatory agent OK WITH SHORT TERM USE Active 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 Naprosyn blood clots Active Wellbutrin XL SORE THROAT, ITCHY, TONGUE SWELLING Active Immunizations Given and Recorded Vaccine Date Status Refusal Reason influenza virus vaccine, inactivated 03/12/21 Evangelista rded influenza virus vaccine, inactivated 03/10/18 Evangelista rded influenza virus vaccine, inactivated 03/12/17 Evangelista rded influenza virus vaccine, inactivated 1, 2 01/30/15 Recorded influenza virus vaccine, inactivated 04/18/14 Evangelista rded tetanus/diphtheria/pertussis, acel(Tdap) 08/04/17 Recorded tetanus/diphtheria/pertussis, acel(Tdap) 04/09/15 Given pneumococcal 13-valent vaccine 3 04/23/17 Recorded pneumococcal 13-valent vaccine 4, 5 03/20/15 Recor ded pneumococcal 23-valent vaccine 04/23/17 Recorded pneumococcal 23-valent vaccine 02/20/17 Recorded pneumococcal 23-valent vaccine 03/11/16 Given 1Location History: [facility] 2Result Comment: [01/31/2015] high dose 3Location History: [place], [place] 4Location History: [facility] [address] 5Result Comment: [04/09/2015] PER [facility] Medications acetaminophen 325 mg oral tablet 650 mg, By Mouth, Every 6 hours, May take OTC not to exceed 4000 mg/day, Refills 0, Maintenance, 01/21/22 11:34:00 EDT, Partial fill upon patient request if the prescription is for a schedule II opioid drug. Start Date: 01/21/22 Status: Ordered Aspirin Tablet 325 mg, By Mouth, 2 times a day, Refills 0, Maintenance, 01/21/22 11:35:00 EDT, Partial fill upon patient request if the prescription is for a schedule II opioid drug. Start Date: 01/21/22 Status: Ordered Colace Capsule 100 mg, 1, capsule, By Mouth, 2 times a day, PRN, Refills 0, Maintenance, as needed for constipation, 01/21/22 11:35:00 EDT, Partial fill upon patient request if the prescription is for a schedule IIopioid drug. Start Date: 01/21/22 Status: Ordered FLUoxetine 10 mg oral capsule 20 mg, 2, capsule, By Mouth, Daily, # 60 capsule, Refills 3, Tot. Refills 3, Maintenance, 12/18/16 10:11:19, Route to Pharmacy Electronically, [id number], [facility] [id number] Start Date: 12/18/16 Status: Ordered Milk of Magnesia Liquid 30 mL, By Mouth, Daily, PRN Constipation, 0 Refills, Maintenance, 01/21/22 11:35:00 EDT, Suspension, Partial fill upon patient request if the prescription is for a schedule II opioid drug. Start Date: 01/21/22 Status: Ordered MiraLax Powder 1 pack/packet = 17 Gm, By Mouth, Daily, PRN Constipation, 0 Refills, Maintenance, 01/21/22 11:35:00EDT, Powder, Partial fill upon patient request if the prescription is for a schedule II opioid drug. Start Date: 01/21/22 Status: Ordered oxyCODONE 5 mg oral tablet 5 mg, Tablet, By Mouth, 02/05/22 5:00:00 EDT Start Date: 02/05/22 Stop Date: 02/05/22 Status: Completed oxyCODONE 5 mg oral tablet 5 mg, Tablet, By Mouth, 02/05/22 11:00:00 EDT Start Date: 02/05/22 Stop Date: 02/05/22 Status: Completed senna 187 mg oral tablet 1 tablet = 8.6 mg, By Mouth, Daily at bedtime, PRN as needed for constipation, 0 Refills, Maintenance, 01/21/22 11:35:00 EDT, Tablet, Partial fill upon patient request if the prescription is for a schedule II opioid drug. Start Date: 01/21/22 Status: Ordered Problem List Condition Effective Dates Status Health Status Inform ant Chronic constipation(Confirmed) Active Chronic low back pain(Confirmed) Active Chronic post-traumatic stres s disorder(Confirmed) Active Pancreatic lesion(Confirmed) Active Early onset dysthymia(Confirmed) Active Rectocele(Confirmed) Active Fibromyalgia(Confirmed) Active GERD (gastroesophageal reflu x disease)(Confirmed) 1 Active Hiatal hernia(Confirmed) 2 Active History of colonoscopy(Confirmed) 3 Active Lacunar infarction(Confirmed) Active Migraines(Confirmed) Active Multinodular thyroid(Confirmed) Active Cervicalgia(Confirmed) Active Peripheral venous insufficiency(Confirmed) Active Depression, major, recurrent , in partial remission(Confirmed) Active Small vessel disease, cerebrovascular(Confirmed) 4, 5 Active 1E2015 hiatal hernia and erosive gastritis, no Bose's 2EGD 2015 45716; repeat 2025 4IMPRESSION: No acute intracranial process. 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 5CT Head 2016 Results Radiology Reports * Exam Date Time Procedure Performing Provider Status 02/01/22 2:21 PM Knee 1 or 2 Views Right Leighann Khan; Auth (Verified) Notes: (Knee 1 or 2 Views Right) Reason For Exam: Pain RESULT: Knee 1 or 2 Views Right Knee 1 or 2 Views Right, 2 views Hx of Present Illness: wellness check; Reason: Pain; Clinical Question(s): Position Fixation COMPARISON: 01/20/2022 FINDINGS: Status post total knee arthroplasty. No evidence of loosening or hardware failure. No periprosthetic fracture. Normal alignment. Small joint effusion. IMPRESSION: Small joint effusion. No fracture or evidence of hardware failure. WSN: [id number] Ordering Physician: Cj Mims Dictated By: Chintan Payan MD Dictated Date/Time: 02/01/22 2:26 pm Reviewed By: Chintan Payan MD Signed By: Chintan Payan MD Signed Date/Time: 02/01/22 2:26 pm Transcribed By: DIGNA Transcribed Date/Time: 02/01/22 2:24 pm Vital Signs Most recent to oldest [Reference Range]: 1 2 3 Oxygen Saturation [94-100 %] 99 % (02/05/22 7:54 AM) 98 % (02/05/22 3:32 AM) 98 % (02/04/22 6:00 AM) Pulse Rate [55-90 bpm] 76 bpm (02/05/22 7:54 AM) 60 bpm (02/05/22 3:32 AM) 60 bpm (02/04/22 6:00 AM) Blood Pressure [90-138/55-84 mm Hg] 137/72mm Hg (02/05/22 3:32 AM) 124/60mm Hg (02/04/22 6:00 AM) 128/61mm Hg (02/04/22 12:00 AM) Respiratory Rate [16-30 br/min] 18 br/min (02/05/22 11:26 AM) 18 br/min (02/05/22 7:54 AM) 17 br/min (02/05/22 6:09 AM) Temperature [96.8-100.4 DegF] 98.1 DegF (02/05/22 3:32 AM) 98.7 DegF (02/03/22 5:22 PM) 98.7 DegF (02/03/22 6:14 AM) Mode of Delivery (Oxygen) Room air (02/05/22 7:54 AM) Room air (02/05/22 3:32 AM) Room air (02/04/22 6:00 AM) Blood pressure sites Arm, left (02/03/22 5:22 PM) Arm, right (02/03/22 6:14 AM) Arm, right (02/03/22 4:12 AM) Temperature Route Oral (02/05/22 3:32 AM) Oral (02/03/22 5:22 PM) Oral (02/03/22 6:14 AM) Social History Social History Type Response Smoking Status Never smoker entered on: 03/11/16 Sex XR Knee - right 1 or 2 Views * BHSPowerscribe , CIS S: TRANSCRIBE Chintan Payan MD: VERIFY Event Display: Result: Authored Date: [id number] Knee 1 or 2 Views Right, 2 views Hx of Present Illness: wellness check; Reason: Pain; Clinical Question(s): Position Fixation COMPARISON: 01/20/2022 FINDINGS: Status post total knee arthroplasty. No evidence of loosening or hardware failure. No periprosthetic fracture. Normal alignment. Small joint effusion. IMPRESSION: Small joint effusion. No fracture or evidence of hardware failure. WSN: [id number] Ordering Physician: Cj Mims Dictated By: Chintan Payan MD Dictated Date/Time: 02/01/22 2:26 pm Reviewed By: Chintan Payan MD Signed By: Chintan Payan MD Signed Date/Time: 02/01/22 2:26 pm Transcribed By: DIGNA Transcribed Date/Time: 02/01/22 2:24 pm Care Team Personnel Name: Not on Staff, PCP
--- OUTSIDE RECORDS SUMMARY | 2023-05-04 11:47 | XMS_ITS | Continuity of Care Document ---
Author Name Unknown Organization [facility] ter Address [address] [place] [address]- Care Team Providers Care Coupon Redemption Clerk Name Role Phone Luisa JOHNSON, Debbie Jm Primary Care Physician Encounter [facility] Date(s): 12/16/21 - 01/22/[address] [address]- Attending Physician: Sebastian Flores MD Admitting Physician: Sebastian Flores MD Referring Physician: Sebastian Flores MD Allergies, Adverse Reactions, Alerts Substance Reaction Severity Status codeine Nausea present Active dapsone petechiae Active gabapentin MAJOR DEPRESSION Active nonsteroidal antiinflammatory agent OK WITH SHORT TERM USE Active 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 Naprosyn blood clots Active Wellbutrin XL SORE THROAT, ITCHY, TONGUE SWELLING Active Immunizations Given and Recorded Vaccine Date Status Refusal Reason influenza virus vaccine, inactivated 03/10/18 Evangelista rded influenza virus vaccine, inactivated 1, 2 01/30/15 Recorded pneumococcal 13-valent vaccine 3 04/23/17 Recorded pneumococcal 13-valent vaccine 4, 5 03/20/15 Recor ded pneumococcal 23-valent vaccine 03/11/16 Given tetanus/diphtheria/pertussis, acel(Tdap) 04/09/15 Given 1[facility] 2Result Comment: [01/31/2015] high dose 3Location History: [place] 4Location History: [facility] 5Result Comment: [04/09/2015] PER [facility] Medications acetaminophen 325 mg oral tablet 650 [...] Maintenance, 12/18/16 10:11:19, Route to Pharmacy Electronically, [id number], [facility] [address] Start Date: 12/18/16 Status: Ordered Milk of [...] Status: Ordered oxyCODONE 5 mg oral tablet See Instructions, PRN, 1 -2 tablet By Mouth Every 4 hours, # 84 tablet, Refills 0, Tot. Refills 0, Acute 01/28/22 8:00:00 EDT, Pain , Severe, 01/21/22 11:32:00 EDT, Instructions Replace Required Details, Route to Pharmacy Electronically, [facility] Start Date: 01/21/22 Stop Date: 01/28/22 Status: Ordered senna 187 mg oral tablet 1 tablet = 8.6 mg, By Mouth, Daily at bedtime, PRN as needed for constipation, 0 Refills, Maintenance, 01/21/22 11:35:00 EDT, Tablet, Partial fill upon patient request if the prescription is for a schedule II opioid drug. Start Date: 01/21/22 Status: Ordered traMADol 50 mg oral tablet See Instructions, PRN Pain , Mild, 1-2 tablet By Mouth Every 6 hours not to exceed 400 mg/day, # 56tablet, 0 Refills, Acute 01/28/22 8:00:00 EDT, 01/21/22 11:33:00 EDT, Tablet, [facility], Partial fill upon patient request if the presc... Start Date: 01/21/22 Stop Date: 01/28/22 Status: Ordered Problem List Condition Effective Dates [...] Small vessel disease, cerebrovascular(Confirmed) 4, 5 Active 1EGD 2015 hiatal hernia and erosive gastritis, no Bose's 2EGD 2016 98335; repeat 2025 4IMPRESSION: No acute intracranial process. 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 5CT Head 2016 Social History Social History Type Response Smoking Status Never smoker entered on: 03/11/16 Sex
--- OUTSIDE RECORDS SUMMARY | 2023-05-04 11:47 | XMS_ITS | Continuity of Care Document ---
Author Name Unknown Organization [facility] Address [address] [place] [address]- Care Team Providers Care Guest History Clerk Name Role Phone Not on Staff, PCP Primary Care Physician Unavail able Encounter [facility] Date(s): 01/16/22 - 02/15/22 [facility] [address], [place] [address] Attending Physician: Fernanda Mullins Admitting Physician: Admtr, Fernanda Referring Physician: Admtr, Ar8 Allergies, Adverse Reactions, Alerts Substance Reaction Severity Status codeine Nausea present Active dapsone petechiae Active Wellbutrin XL SORE THROAT, ITCHY, TONGUE SWELLING Active gabapentin MAJOR DEPRESSION Active nonsteroidal antiinflammatory agent OK WITH SHORT TERM USE Active 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 Naprosyn blood clots Active Immunizations Given and Recorded Vaccine Date [...] pneumococcal 23-valent vaccine 03/11/16 Given [facility] 2Result Comment: [01/31/2015] high dose 3Location History: [place] [place] 4Location History: [facility] 5Result Comment: [04/09/2015] PER [facility] Medications acetaminophen 325 mg oral tablet 650 [...] Maintenance, 12/18/16 10:11:19, Route to Pharmacy Electronically, [id number], [facility] [id number] Start Date: 12/18/16 Status: Ordered Milk of [...] opioid drug. Start Date: 01/21/22 Status: Ordered senna 187 mg oral tablet [...] and erosive gastritis, no Bose's 2EGD 2015 24405; repeat 2025 4IMPRESSION: No acute intracranial process. 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 5CT Head 2016 Social History Social History Type Response Smoking Status Never smoker entered on: 03/11/16 Sex Care Team Personnel Name: Not on Staff, PCP
--- OUTSIDE RECORDS SUMMARY | 2023-05-04 11:47 | XMS_ITS | Continuity of Care Document ---
Author Name Unknown Organization [facility] ter Address [address] [place] [address]- Care Team Providers Care Amphibian Crewmember Name Role Phone Luisa JOHNSON, Debbie D Primary Care Physician Encounter [facility] Date(s): 01/20/22 - 01/23/[address] [address] Discharge Disposition: A-Transfer VNA/Home Health Attending Physician: Sebastian Flores MD Admitting Physician: [...] high dose 3Location History: [place] 4Location History[facility] 5Result Comment: [04/09/2015] PER [facility] Medications acetaminophen 325 mg oral tablet 650 [...] Maintenance, 12/18/16 10:11:19, Route to Pharmacy Electronically, [id number], [facility] [address] Start Date: 12/18/16 Status: Ordered Milk of [...] Status: Ordered oxyCODONE 5 mg oral tablet 10 mg, Tablet, By Mouth, Every 4 hours, PRN for Pain , Severe, Routine, 01/21/22 8:07:00 EDT Start Date: 01/21/22 Stop Date: 01/24/22 Status: Discontinued oxyCODONE 5 mg oral tablet See Instructions, PRN, 1 -2 tablet By Mouth Every 4 hours, # 84 tablet, Refills 0, Tot. Refills 0, Acute 01/28/22 8:00:00 EDT, Pain , Severe, 01/21/22 11:32:00 EDT, Instructions Replace Required Details, Route to Pharmacy Electronically, [facility] Start Date: 01/21/22 Stop Date: 01/28/22 [...] 01/28/22 8:00:00 EDT, 01/21/22 11:33:00 EDT, Tablet, [facility], Partial fill upon patient request if [...] Small vessel disease, cerebrovascular(Confirmed) 4, 5 Active 2015 hiatal hernia and erosive gastritis, no Bose's 2EGD 2015 [address]004; repeat 2025 4IMPRESSION: No acute intracranial process. 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 5CT Head 2016 Results Radiology Reports * Exam Date Time Procedure Performing Provider Status 01/20/22 10:56 PM Knee 1 or 2 Views Right Jason Romo; Auth (Verified) Notes: (Knee 1 or 2 Views Right) Reason For Exam: Postop;Postop RESULT: Knee 1 or 2 Views Right Knee 1 or 2 Views Right INDICATION: Postop knee replacement COMPARISON: None. FINDINGS: Distal femoral and proximal tibial metallic components are in typical position. No periprosthetic fracture. Soft tissue emphysema, but no unexpected soft tissue findings. IMPRESSION: Typical postoperative appearance. WSN: [id number] Ordering Physician: Devonte Dean Dictated By: Stone Yono MD Dictated Date/Time: 01/20/22 10:59 p Reviewed By: Stone Yoon MD Signed By: Stone Yoon MD Signed Date/Time: 01/20/22 10:59 pm Transcribed By: DIGNA Transcribed Date/Time: 01/20/22 10:59 pm Vital Signs Most recent to oldest [Reference Range]: 1 2 3 Height 160 cm (01/23/22 6:46 AM) 160 cm (01/22/22 6:44 AM) 160 cm (01/22/22 3:46 AM) Weight 63.2 kg (01/20/22 10:59 AM) 63.2 kg (01/20/22 7:38 AM) Oxygen Saturation [94-100 %] 97 % (01/23/22 6:46 AM) 98 % (01/23/22 3:00 AM) 98 % (01/22/22 7:00 PM) Pulse Rate [55-90 bpm] 59 bpm (01/23/22 6:46 AM) 62 bpm (01/23/22 3:00 AM) 61 bpm (01/22/22 7:00 PM) Body Mass Index [18.5-24.99] 24.69 (01/20/22 10:59 AM) 24.69 (01/20/22 7:38 AM) Blood Pressure [90-138/55-84 mm Hg] 119/48mm Hg (01/23/22 6:46 AM) 108/53mm Hg (01/23/22 3:00 AM) 106/49mm Hg (01/22/22 7:00 PM) Respiratory Rate [16-30 br/min] 20 br/min (01/23/22 3:41 PM) 18 br/min (01/23/22 11:56 AM) 18 br/min (01/23/22 11:08 AM) Temperature [96.8-100.4 DegF] 98.3 DegF (01/23/22 6:46 AM) 97.7 DegF (01/23/22 3:00 AM) 98.5 DegF (01/22/22 7:00 PM) Mode of Delivery (Oxygen) Room air (01/23/22 6:46 AM) Room air (01/23/22 3:00 AM) Room air (01/22/22 7:00 PM) Blood pressure sites Arm, right (01/23/22 6:46 AM) Arm, right (01/23/22 3:00 AM) Arm, right (01/22/22 7:00 PM) Temperature Route Oral (01/23/22 6:46 AM) Oral (01/23/22 3:00 AM) Oral (01/22/22 7:00 PM) Dry Weight 63.2 kg (01/20/22 10:59 AM) 63.2 kg (01/20/22 7:38 AM) Social History Social History Type Response Smoking Status Never smoker entered on: 03/11/16 Sex
--- OUTSIDE RECORDS SUMMARY | 2023-05-04 11:47 | XMS_ITS | Continuity of Care Document ---
Author Name Unknown Organization [facility] Address [address] [place] [address]- Care Team Providers Care Printed Circuit Boards Contact Printer Name Role Phone Not on Staff, PCP Primary Care Physician Unavail able Encounter [facility] Date(s): 12/16/21 - 02/07/22 [facility] [address] [place], [place] [address] Attending Physician: Zac Wu MD Admitting Physician: Zac Wu MD Referring Physician: Sebastian Flores MD Allergies, [...] 23-valent vaccine 03/11/16 Given 1[facility] 2Result Comment: [01/31/2015] high dose 3[facility] [place] [facility] 5Result Comment: [04/09/2015] PER [facility] Medications acetaminophen 325 mg oral tablet [...] Maintenance, 12/18/16 10:11:19, Route to Pharmacy Electronically, [id number], [facility] [address] Start Date: 12/18/16 Status: Ordered Milk of [...] and erosive gastritis, no Bose's 2EGD 2015 28246; repeat 2025 4IMPRESSION: No acute intracranial process. 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 5CT Head 2016 Social History Social History Type Response Smoking Status Never smoker entered on: 03/11/16 Sex Care Team Personnel Name: Not on Staff, PCP
--- OUTSIDE RECORDS SUMMARY | 2023-05-04 11:47 | XMS_ITS | Continuity of Care Document ---
Author Name Unknown Organization [facility] ter Address [address] [place] [address]- Care Team Providers Care Housing Inspector Name Role Phone Tita Vaz Primary Care Physician [place] [facility] [place]s): 12/30/21 - 12/30/[address] [address]- Discharge Disposition: A-D/C Walkout Attending Physician: Not on Staff, Attending MD Admitting Physician: Not on Staff, Admitting MD Referring Physician: Not on Staff, Referring MD Allergies, Adverse Reactions, Alerts Substance Reaction Severity Status codeine Nausea present Active dapsone petechiae Active gabapentin MAJOR DEPRESSION Active nonsteroidal antiinflammatory agent OK WITH SHORT TERM USE Active Wellbutrin XL SORE THROAT, ITCHY, TONGUE SWELLING Active 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 Naprosyn blood clots Active pantoprazole tongue swelling Active Immunizations Given and Recorded Vaccine Date Status Refusal Reason influenza virus vaccine, inactivated 03/10/18 Evangelista rded influenza virus vaccine, inactivated 1, 2 01/30/15 Recorded pneumococcal 13-valent vaccine 3 04/23/17 Recorded pneumococcal 13-valent vaccine 4, 5 03/20/15 Recor ded pneumococcal 23-valent vaccine 03/11/16 Given tetanus/diphtheria/pertussis, acel(Tdap) 04/09/15 Given 1[facility] History[facility] 2Result Comment: [01/31/2015] high dose 3Location History: [place] 4Location History: [facility] [address] 5Result Comment: [04/09/2015] PER [facility] Medications aspirin 81 mg oral tablet 1 tablet = 81 mg, By Mouth, Daily, 0 Refills, Maintenance, 09/14/15 8:56:38 Start Date: 09/14/15 Status: Ordered atorvastatin 40 mg oral tablet 1 tablet = 40 mg, By Mouth, Daily, # 90 tablet, 2 Refills, Maintenance, Tablet, Route to Pharmacy Electronically, [id number], [facility] [address] Start Date: 11/14/16 Status: Ordered clonazePAM 0.5 mg oral tablet 1 tablet = 0.5 mg, By Mouth, 3 times a day, PRN Anxiety, # 90 tablet, 2 Refills, Maintenance, 12/18/16 13:11:19, Tablet Start Date: 12/18/16 Status: Ordered cyanocobalamin 1000 mcg/ml injectable solution 1 mL = 1,000 mcg, Intramuscular, Every 30 days, # 3 mL, 3 Refills, Maintenance, 09/12/16 17:36:17, Solution Start Date: 09/12/16 Status: Ordered Daily Multi 1 tablet, By Mouth, Daily, 0 Refills, Maintenance, 11/08/14 10:56:10 Start Date: 11/08/14 Status: Ordered FLUoxetine 10 mg oral capsule 20 mg, 2, capsule, By Mouth, Daily, # 60 capsule, Refills 3, Tot. Refills 3, Maintenance, 12/18/16 10:11:19, Route to Pharmacy Electronically, [id number], [facility] [address] Start Date: 12/18/16 Status: Ordered omeprazole 20 mg oral delayed release tablet 1 tablet = 20 mg, By Mouth, 2 times a day, # 180 tablet, 2 Refills, Maintenance, 09/09/16 16:36:01,EC Tablet Start Date: 09/09/16 Status: Ordered syringe and needles syringe and needles, See Instructions, # 12 units, Refills 3, Tot. Refills 3, Maintenance, syringe 3cc needles 25 g X 5/8 inches for use with b12, 09/12/16 17:36:48, Compound Start Date: 09/12/16 Status: Ordered Problem List Condition Effective Dates [...] and erosive gastritis, no Bose's 2EGD 2015 [address]244; repeat 2025 4IMPRESSION: No acute intracranial process. 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 5CT Head 2016 Results Radiology Reports * Exam Date Time Procedure Performing Provider Status 12/30/21 12:38 PM Chest 2 Views Frontal and Lat Yash Lindo; Auth (Verified) Notes: (Chest 2 Views Frontal and Lat) Reason For Exam: Chest Pain;Other: RESULT: Chest 2 Views Frontal and Lat Chest 2 Views Frontal and Lat Hx of Present Illness: Cough and bodyaches. Chest Pain; COMPARISON: 05/20/[address] scan. FINDINGS: LINES AND TUBES: None. LUNGS AND PLEURA: Clear lungs. Normal pulmonary vascularity. No pleural effusion. No pneumothorax. HEART, MEDIASTINUM AND FUNMI: Heart is normal in size. Normal upper mediastinal and hilar contour. BONES AND SOFT TISSUES: No acute abnormality. Postsurgical changes lower cervical spine. IMPRESSION: No acute abnormality. WSN: [id number] Ordering Physician: Jason Cosme Dictated By: Raman Aquino MD Dictated Date/Time: 12/30/21 1:16 pm Reviewed By: Raman Aquino MD Signed By: Raman Aquino MD Signed Date/Time: 12/30/21 1:16 pm Transcribed By: DIGNA Transcribed Date/Time: 12/30/21 1:15 pm Vital Signs Most recent to oldest [Reference Range]: 1 2 3 Oxygen Saturation [94-100 %] 100 % (12/30/21 3:23 PM) 100 % (12/30/21 1:14 PM) 100 % (12/30/21 10:27 AM) Pulse Rate [55-90 bpm] 56 bpm (12/30/21 3:23 PM) 62 bpm (12/30/21 1:14 PM) 65 bpm (12/30/21 10:27 AM) Blood Pressure [90-138/55-84 mm Hg] 130/52mm Hg (12/30/21 3:23 PM) 130/50mm Hg (12/30/21 1:14 PM) 129/72mm Hg (12/30/21 10:27 AM) Respiratory Rate [16-30 br/min] 16 br/min (12/30/21 1:14 PM) 18 br/min (12/30/21 10:27 AM) 18 br/min (12/30/21 10:19 AM) Temperature [96.8-100.4 DegF] 98.7 DegF (12/30/21 3:23 PM) 97.2 DegF (12/30/21 1:14 PM) 98.4 DegF (12/30/21 10:27 AM) Mode of Delivery (Oxygen) Room air (12/30/21 3:23 PM) Room air (12/30/21 1:14 PM) Room air (12/30/21 10:27 AM) Blood pressure sites Arm, left (12/30/21 3:23 PM) Arm, right (12/30/21 1:14 PM) Temperature Route Oral (12/30/21 3:23 PM) Oral (12/30/21 1:14 PM) Oral (12/30/21 10:27 AM) Social History Social History Type Response Smoking Status Never smoker entered on: 03/11/16 Sex
--- OUTSIDE RECORDS SUMMARY | 2023-05-04 11:48 | XMS_ITS | Continuity of Care Document ---
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 Wellbutrin XL SORE THROAT, ITCHY, TONGUE SWELLING Active gabapentin MAJOR DEPRESSION Active nonsteroidal antiinflammatory agent OK WITH SHORT TERM USE Active Naprosyn blood clots Active Immunizations Given [...] [01/31/2015] high dose 3Location History: [facility] [place], [place] 4Location History: [facility] 5Result Comment: [04/09/2015] PER [facility] Medications acetaminophen 325 mg oral [...] Maintenance, 12/18/16 10:11:19, Route to Pharmacy Electronically, [id number], [facility] [address] Start Date: 12/18/16 Status: Ordered Milk of [...] and erosive gastritis, no Bose's 2EGD 2015 [address]64; repeat 2025 4IMPRESSION: No acute intracranial process. 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 5CT Head 2016 Social History Social History Type Response Smoking Status Never smoker entered on: 03/11/16 Sex Care Team Personnel Name: Not on Staff, PCP
[2023-05-04 11:53] LABS: MANUAL DIFF FLAG NO
[2023-05-04 11:59] LABS: Basophils Percent Auto 0.3 % (0-2); Eosinophils Absolute Auto 0.1 X10*3/uL (0.0-0.4); Eosinophils Percent Auto 1.2 % (0-4); Hematocrit 37.9 % (37.0-47.0); Hemoglobin 12.3 g/dl (12.0-16.0); Imm Gran Abs Auto 0.03 X10*3/uL (0.00-0.03); Imm Gran Pct Auto 0.3 % (0.0-0.4); Lymphocytes Absolute Auto 1.6 X10*3/uL (1.2-4.9); Lymphocytes Percent Auto 17.3 % (20-40); Mean Corpuscular HGB Conc 32.5 g/dl (31.0-35.0); Mean Corpuscular Hemoglobin 29.8 pg (27.0-33.0); Mean Corpuscular Volume 91.8 fL (80.0-98.0); Mean Platelet Volume 9.6 fL (9.4-12.3); Monocytes Absolute Auto 0.8 X10*3/uL (0.1-1.2); Monocytes Percent Auto 8.7 % (2-11); Neutrophils Absolute Auto 6.5 x10*3/uL (2.0-8.3); Neutrophils Percent Auto 72.2 % (45-73); Platelet Count 252 X10*3/uL (160-400); Red Blood Count 4.13 X10*6/uL (4.20-5.50); Red Cell Distribution Width 12.6 % (11.0-16.0)
[2023-05-04 12:06] LABS: COVID-19 Test Negative (Negative); IDNOW Serial# BCCEAD1C
[2023-05-04 12:11] LABS: Alanine Aminotransferase 8 U/L (0-31); Albumin Level 3.9 g/dL (3.5-5.0); Alkaline Phosphatase 67 U/L (39-117); Anion Gap 11 (12-20); Aspartate Amino Transferase 18 U/L (5-31); Bilirubin Direct 0.1 mg/dL (0.0-0.5); Bilirubin Total 0.4 mg/dL (0.0-1.0); Blood Urea Nitrogen 13 mg/dL (9-16); Calcium 9.3 mg/dL (8.4-10.2); Carbon Dioxide 27 mmol/L (22-29); Chloride 102 mmol/L (96-108); Creatinine Clr Calc Pharmacy 47.4; Estimated Glomerular Filt Rate 60; Glucose Random 109 mg/dL (60-115); Potassium 4.3 mmol/L (3.3-5.1); Sodium 136 mmol/L (135-145)
[2023-05-04 12:18] LABS: Troponin-I High Sensitivity 4.7 ng/L (<3.5-17.0)
[2023-05-04] MEDS: Acetaminophen 325 MG TABLET 975 MG PO (12:26)
[2023-05-04] MEDS: Lidocaine 4 % Patch ADH..PATCH 1 PATCH TRANSDERMA (12:27)
[2023-05-04 12:40] LABS: B Type Natriuretic Peptide 78 pg/mL (<100)
[2023-05-04 12:56] LABS: D Dimer High Sensitivity 225 NG/ML
[2023-05-04 14:19] LABS: Troponin-I High Sensitivity 5.6 ng/L (<3.5-17.0)
[2023-05-04 14:30] LABS: Appearance Urine Clear; Color Urine Yellow; Glucose Urine UA Negative (Negative); Leukocyte Esterase Urine Small (1+) (Negative); Nitrite Urine Negative (Negative); Specific Gravity - Urine 1.015 (1.005-1.025); UMIC TRIGGER UACC YES; Urine Blood Negative (Negative); Urine Ketones Trace mg/dL (Negative); Urine Protein Negative (Neg-Trace)
[2023-05-04 14:50] LABS: Bacteria Urine None Seen (None Seen); Hyaline Casts Urine 0-2 /LPF (0-2); RBC Urine 0-2 /HPF (0-2); Squamous Epithelial Cell Urine 0-2 /HPF (0-2); UACC Culture Trigger YES; WBC Urine 0-5 /HPF (0-5)
== END 2023-05-04 14:57 | disposition home or self-care (01) ==
PROVIDERS: Nurse Practitioner Family; Physician Assistant; Emergency Provider Emergency Medicine; PCP Internal Medicine
DX: M43.6 Torticollis (principal); R06.02 Shortness of breath; Z11.52 Encounter for screening for COVID-19; I10 Essential (primary) hypertension; Z79.899 Other long term (current) drug therapy
CPT/HCPCS: 36415; 71046; 80048; 80076; 81001; 81003; 83735; 83880; 84484; 85025; 85379; 87086; 87635; 93005; 99283; 99284

== ENCOUNTER 2023-05-13 08:35 | Outpatient (REF) | payer MEDICARE, MEDICAID, SELFPAY ==
--- NOTE | ~2023-05-13 | FL_ITS ---
EXAMINATION: XR FLUOROSCOPY UPPER GI WITH AIR CLINICAL INFORMATION: Dysphasia COMPARISON: Barium swallow 08/28/2017 TECHNIQUE: Fluoroscopic air contrast upper GI examination was performed utilizing standard techniques with thin and thick barium and effervescent granules. Numerous spot images were obtained. FINDINGS: Patient is status post anterior cervical fusion with plate and screw fixation at C4-C6. No complication identified. There is a sizable anterior osteophyte at level of C3-C4, however, it does not appear this is causing any significant compression of the lower hypopharynx. Lateral cine images of the oropharynx and hypopharynx demonstrate normal swallow mechanism with normal epiglottic inversion and soft palate elevation. There is trace laryngeal penetration above the vocal cord with thick barium that clears with subsequent swallowing. No glottic or subglottic aspiration is seen. No nasopharyngeal reflux present. Hypopharyngeal structures appear normal without evidence of mass or diverticulum. There was no significant cricopharyngeal achalasia. Dual and single contrast images of the esophagus demonstrate a patulous esophagus. No evidence of stricture, mass, or ulcerations identified. Nonpropulsive tertiary contractions are noted throughout the entire esophagus. A small type I hiatal hernia is present. Gastroesophageal reflux is seen up to the thoracic inlet. Dual contrast and single contrast images of the stomach demonstrated normal contour without evidence of masses. There are multiple small areas of contrast pooling in the fundus and body the stomach concerning for ulcerations. Contrast freely passed into the gastric antrum and duodenal bulb without delay. Single and air-contrast images of the duodenal bulb demonstrate no abnormality. The duodenal sweep has a normal appearance, course, and mucosal fold appearance. The imaged proximal jejunum has a normal fold pattern and caliber. FLUOROSCOPY TIME: 4 minutes 32 seconds Number of Spot Images: 15 Number of Cine: 9 DOSE AREA PRODUCT: 2559 uGy-m2 (microgray-meter squared) FL/FL upper GI w air w Ba Swallow IMPRESSION: 1. Trace laryngeal penetration with thick barium 2. Large anterior osteophyte at level of C3-4, however, no significant mass effect. 3. Presbyesophagus. Patulous esophagus. 4. Small type I hiatal hernia 5. Severe gastroesophageal reflux 6. Multiple small areas of contrast pooling in the fundus and body the stomach suggestive of erosive gastritis. This procedure was performed by Andre Ibanez PA-C, and supervised by Dr. Hooper
== END 2023-05-13 08:36 | disposition home or self-care (01) ==
LOC: HO.XRAY 08:35
PROVIDERS: PCP Internal Medicine; Visit Provider Internal Medicine
DX: R13.10 Dysphagia, unspecified (principal)
CPT/HCPCS: 74246

== ENCOUNTER → 2023-05-13 08:37 | Outpatient (BNV) | payer MEDICARE, MEDICAID, SELFPAY | PROVIDERS: PCP Internal Medicine; Visit Provider Radiology Diagnostic Radiology | DX: R13.10 Dysphagia, unspecified (principal) | CPT/HCPCS: 74246 ==

== ENCOUNTER 2023-10-02 12:28 | Outpatient (AMB) | payer OTHER, SELFPAY ==
--- NOTE | 2023-10-02 12:38 | MHC.PC.OV ---
Vital Signs 10/02/23 12:41 Height 5 ft 2 in Weight 165 lb 6 oz BMI 30.2 BP 150/64 H Blood Pressure Location Lt brachial Position Sitting Pulse 69 Pulse Source Pulse Oximeter Pulse Oximetry (%) 99 Oxygen Delivery Method Room Air Intake Visit Reasons: Body Pains/ Depression/High BP Intake Note: Patient is here to follow up on Body pains, depression, high BP. Content Management Specialist Required: No Medical Records Coder: Not Required per policy Accompanied by: Self / Same As Patient Allergies cyclobenzaprine [From FLEXERIL] Allergy (Severe, Verified 10/02/23 12:41) I WENT BLIND bupropion [From WELLBUTRIN] Allergy (Intermediate, Verified 10/02/23 12:41) Swelling, ST, Itchy tongue divalproex sodium [From DEPAKOTE] Allergy (Unknown, Verified 10/02/23 12:41) INSOMNIA,AND OTHER RXNS doxycycline [DOXYCYCLINE] Allergy (Unknown, Verified 10/02/23 12:41) UNKNOWN, tongue swelling Flexeril Allergy (Unknown, Verified 10/02/23 12:41) lost vision gabapentin [GABAPENTIN] Allergy (Unknown, Verified 10/02/23 12:41) UNKNOWN, unsure lamotrigine [LAMOTRIGINE] Allergy (Unknown, Verified 10/02/23 12:41) UNKNOWN losartan Adverse Reaction (Intermediate, Verified 10/02/23 12:41) sob Medication List - Last Reconciled 10/02/23 by Joaquin Leonard MD acetaminophen (Tylenol) 650 mg (2 x 325 mg) PO Q6H PRN calcium carbonate (Calcium 600) 1,000 mg PO DAILY cholecalciferol (vitamin D3) 25 mcg PO DAILY clonazepam 0.5 mg PO BEDTIME 30 days duloxetine 30 mg PO DAILY gabapentin 300 mg PO TID 90 days hydrochlorothiazide 12.5 mg PO QAM omega-3 fatty acids 1,000 mg PO DAILY Tobacco use date assessed: 10/02/23 Fall risk assessment: No Falls in past year Last assessed Fall Risk: 10/02/23 Dental Screening Dental Screen Date: 10/02/23 Did you have a dental visit in the last 12 months?: Yes Did you have a dental problem in the last 6 months where you did not have access to dental care?: No Was dental information given to patient?: Patient has dentist HPI Body Pains/ Depression/High BP HPI Details 77-year-old obese female with hypertension GERD osteoporosis PTSD coming in for follow-up. Patient also has chronic low back pain post laminectomy syndrome. Last seen in April 2023. Patient was sent for pain management complains of neck pain radiating to the right upper back and arm had some trigger point injection in the right trapezius with bupivacaine and Kenalog diagnosis of myofascial pain. Patient had some dysphagia and May had the GI series done showing trace laryngeal penetration with thick barium large anterior osteophyte at the level of C3-C4 no mass effect has presbyesophagus small hiatal hernia severe gastroesophageal reflux disease and concern about small contrast pooling in the fundus suggestive of erosive gastritis. Patient was advised to follow-up with Gastroenterology. [facility] Medical History Blood pressure elevated without history of HTN Hypertension Pulmonary nodule Thyroid nodule PUD (peptic ulcer disease) Surgical History H/O cervical spine surgery History of lumbar surgery History of knee replacement History of cholecystectomy Family History Mother No problems noted. Father No problems noted. Sister Breast cancer Sister Breast cancer Daughter No problems noted. Daughter No problems noted. Daughter No problems noted. Son No problems noted. Son No problems noted. Other Mental health disorder Substance use disorder Social History (Updated 10/02/23 @ 12:48 by TUNG Membreno) Housing: House Alcohol intake: current Alcohol intake frequency: holidays/special occasions only Patient Tobacco Use Status: Never used Tobacco e-Cigarette/Vaping Use: Never Used Second Hand Smoke Exposure: No service: No Current occupational status: retired Cognitive needs: No Hearing needs: No Vision needs: Yes Questionnaire PHQ-9 Over the last 2 weeks, how often have you been bothered by any of the following problems? 1. Little interest or pleasure in doing things: not at all 2. Feeling down, depressed, or hopeless: not at all 3. Trouble falling or staying asleep, or sleeping too much: not at all 4. Feeling tired or having little energy: not at all 5. Poor appetite or overeating: not at all 6. Feeling bad about yourself - or that you are a failure or have let yourself or your family down: not at all 7. Trouble concentrating on things, such as reading the newspaper or watching television: not at all 8. Moving or speaking so slowly that other people could have noticed. Or the opposite - being so fidgety or restless that you have been moving around a lot more than usual: not at all 9. Thoughts that you would be better off or of hurting yourself in some way: not at all Total score: 0 Depression Screening Interpretation: Negative Depression Screening Done: Yes Source: Developed by Drs. Omero Back, Adriana Suarez, Emerson Tanner and colleagues, with an educational blaine from [employer]. Thrive Questionnaire Date Thrive assessed: 10/02/23 I am a: Patient What is your living situation today?: I have a steady place to live Within the past 12 months, did the food you bought not last and you didn't have the money to get more?: Never true Within the past 12 months, did you worry whether your food would run out before you got money to buy more?: Never true Do you have trouble paying for medicines?: No Do you have trouble getting transportation to medical appointments?: No Do you have trouble paying your heating and electricity bill?: No Do you have trouble taking care of your child, family member or friend?: No Do you have trouble with day-to-day activities such as bathing, preparing meals, shopping, managing finances, etc.?: No Are you currently unemployed and looking for a job?: No Are you interested in more education?: No Currently or been in a relationship where the following occur: no concerns reported THRIVE Score: 0 AUDIT C Alcohol Use Questionnaire (AUDIT-C) 1. How often do you have a drink containing alcohol?: Never Total Score: 0 RAEANN-7 AMB Questionnaire RAEANN-7 Date RAEANN - 7 assessed: 10/02/23 Feeling nervous, anxious, or on edge: 0 = Not at all Not being able to stop or control worryin = Not at all Worrying too much about different things: 0 = Not at all Trouble relaxin = Not at all Being so restless that it is hard to sit still: 0 = Not at all Becoming easily annoyed or irritable: 0 = Not at all Feeling afraid as if something awful might happen: 0 = Not at all Total RAEANN-7 score (0-4 normal; 5-9 mild; 10-14 moderate; 15-21 severe): 0 Source: Developed by Drs. Omero Back, Adriana Suarez, Emerson Tanner and colleagues, with an educational blaine from [employer]. Physical exam (Primary Care) Vital Signs: Last Vital Signs Pulse 69 10/02/23 12:41 BP 150/64 H 10/02/23 12:41 Pulse Ox 99 10/02/23 12:41 Oxygen Delivery Method Room Air 10/02/23 12:41 BMI result Body Mass Index 30.2 Tobacco/Smoking Status: Tobacco use Status Tobacco use date assessed 10/02/23 10/02/23 12:50 Patient Tobacco Use Status Never used Tobacco 10/02/23 12:50 e-Cigarette/Vaping Use Never Used 10/02/23 12:50 PHQ-9: PHQ-9 Score PHQ-9: Total score 0 10/02/23 12:50 Depression Screening Interpretation: Negative Thrive Assessment: Date of Thrive Assessment Date Thrive assessed 10/02/23 10/02/23 12:50 Currently or been in a relationship where the following occur: no concerns reported Const General: alert; No acute distress Eyes Conjunctivae: conjunctivae normal Resp Auscultation: clear to auscultation bilaterally Cardio Rate: regular rate Rhythm: regular rhythm GI Inspection: Yes normal to inspection Extrem General: Yes normal to inspection and No edema Assessment and Plan Assessment & Plan (1) Postlaminectomy syndrome, cervical: Code(s): M96.1 - Postlaminectomy syndrome, not elsewhere classified Plan: Patient has met with pain management and has had mass fascial pain having injections done (2) PTSD (post-traumatic stress disorder): Comment: [facility] 2022 Code(s): F43.10 - Post-traumatic stress disorder, unspecified Plan: Presently on clonazepam (3) GERD (gastroesophageal reflux disease): Comment: May 2023Trace laryngeal penetration with thick barium 2. Large anterior osteophyte at level of C3-4, however, no significant mass effect. 3. Presbyesophagus. Patulous esophagus. 4. Small type I hiatal hernia 5. Severe gastroesophageal reflux 6. Multiple small areas of contrast pooling in the fundus and body the stomach suggestive of erosive gastritis. Code(s): K21.9 - Gastro-esophageal reflux disease without esophagitis Plan: Avoid the foods that causes that usually spicy foods, tomato products, juices, coffee, soda and foods that your sensitive to. After eating do not lie down, allow 3-4 hours before in lie down. And keep the head of bed above 30 degrees to avoid the acid from going up. 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 (4) Obesity (BMI 30.0-34.9): Code(s): E66.9 - Obesity, unspecified Plan: Diet and exercise (5) Dysphagia: Code(s): R13.10 - Dysphagia, unspecified Plan: Patient was referred to Gastroenterology (6) Hypertension: Code(s): I10 - Essential (primary) hypertension Plan: Continue with blood pressure medication. Decrease salt intake and exercise on hydrochlorothiazide (7) Postlaminectomy syndrome, lumbar: Code(s): M96.1 - Postlaminectomy syndrome, not elsewhere classified Plan: PAtient has a planned injections with pain management Medications: New duloxetine 30 mg PO DAILY 30 caps 3RF F43.10 - Post-traumatic stress disorder, unspecified Coding Level of Care Code Est Pt Level 4 (89560) Diagnoses Postlaminectomy syndrome, cervical M96.1 PTSD (post-traumatic stress disorder) F43.10 GERD (gastroesophageal reflux disease) K21.9 Obesity (BMI 30.0-34.9) E66.9 Dysphagia R13.10 Hypertension I10 Postlaminectomy syndrome, lumbar M96.1
[2023-10-02 12:41] VITALS: BP 150/64; PULSE 69; O2SAT 99; BMI 30.2
== END 2023-10-02 13:15 | disposition home or self-care (01) ==
PROVIDERS: PCP Internal Medicine; Visit Provider Internal Medicine
DX: M96.1 Postlaminectomy syndrome, not elsewhere classified (principal); F43.10 Post-traumatic stress disorder, unspecified; Z68.30 Body mass index [BMI] 30.0-30.9, adult; E66.9 Obesity, unspecified; K21.9 Gastro-esophageal reflux disease without esophagitis; R13.10 Dysphagia, unspecified; I10 Essential (primary) hypertension
CPT/HCPCS: 99214

== ENCOUNTER 2023-10-19 11:51 | Day surgery (SDC) | payer OTHER, SELFPAY ==
[2023-10-16 07:03] VITALS: BMI 30.2
--- NOTE | 2023-10-16 11:06 | HO.ANESPROP2 ---
Documented by User: Bibiana Celaya NP 10/16/23 11:09 HPI - Anesthesia Eval Consult details Narrative: 77yo F for Upper Endoscopy with Balloon Dilitation *Multiple Med Allergies* PMFSH Active Problems Active Problems: All Active Problems Dysphagia (Acute) Obesity (BMI 30.0-34.9) (Acute) Annual physical exam (Acute) Knee pain, bilateral (Acute) Status post total knee replacement, bilateral (Acute) Postlaminectomy syndrome, lumbar (Acute) Postlaminectomy syndrome, cervical (Acute) PTSD (post-traumatic stress disorder) (Acute) Schatzki's ring (Acute) GERD (gastroesophageal reflux disease) (Acute) Osteoporosis (Acute) Overweight (BMI 25.0-29.9) (Acute) Lumbar degenerative disc disease (Acute) Hypertension (Acute) Past Medical History Medical History (Updated 10/16/23 @ 06:51 by Jolanta Woodard RN) Pancreatitis Hiatal hernia Anxiety Depression Pulmonary nodule Thyroid nodule PUD (peptic ulcer disease) Blood pressure elevated without history of HTN Hypertension Family History Family History Mother No problems noted. Father No problems noted. Sister Breast cancer Sister Breast cancer Daughter No problems noted. Daughter No problems noted. Daughter No problems noted. Son No problems noted. Son No problems noted. Other Mental health disorder Substance use disorder Surgical History Surgical History (Updated 10/16/23 @ 06:51 by Jolanta Woodard RN) History of esophagogastroduodenoscopy (EGD) H/O colonoscopy Hx of melanoma excision H/O cervical spine surgery History of lumbar surgery History of knee replacement History of cholecystectomy Social History Social History (Updated 10/02/23 @ 12:48 by TUNG Membreno) Housing: House Alcohol intake: current Alcohol intake frequency: holidays/special occasions only Patient Tobacco Use Status: Never used Tobacco e-Cigarette/Vaping Use: Never Used Second Hand Smoke Exposure: No Use of substances other than those prescribed or required for medical reasons: No Are you DNR?: No Advance Directives: No Advance Directives Information Provided: Yes service: No Current occupational status: retired Cognitive needs: No Hearing needs: No Vision needs: Yes Meds Allergies Allergy/AdvReac Type Severity Reaction Status Date / Time cyclobenzaprine Allergy Severe I WENT Verified 10/02/23 12:41 [From FLEXERIL] BLIND bupropion [From WELLBUTRIN] Allergy Intermediate Swelling, Verified 10/02/23 12:41 ST, Itchy tongue divalproex sodium Allergy Unknown INSOMNIA,AND Verified 10/02/23 12:41 [From DEPAKOTE] OTHER RXNS doxycycline [DOXYCYCLINE] Allergy Unknown UNKNOWN, Verified 10/02/23 12:41 tongue swelling Flexeril Allergy Unknown lost vision Verified 10/02/23 12:41 gabapentin [GABAPENTIN] Allergy Unknown UNKNOWN, Verified 10/02/23 12:41 unsure lamotrigine [LAMOTRIGINE] Allergy Unknown UNKNOWN Verified 10/02/23 12:41 fluoxetine Allergy Unknown Verified 10/16/23 06:48 hydromorphone [From Dilaudid] Allergy Unknown Verified 10/16/23 06:48 naproxen Allergy Unknown Verified 10/16/23 06:48 NSAIDS (Non-Steroidal Allergy Unknown Verified 10/16/23 06:48 Anti-Inflamma pantoprazole [From Protonix] Allergy Unknown Verified 10/16/23 06:48 pravastatin Allergy Unknown Verified 10/16/23 06:48 pregabalin [From Lyrica] Allergy Unknown Verified 10/16/23 06:48 sulfamethoxazole Allergy Unknown Verified 10/16/23 06:48 [From Bactrim] trimethoprim [From Bactrim] Allergy Unknown Verified 10/16/23 06:48 losartan AdvReac Intermediate sob Verified 10/02/23 12:41 Home Medications ?Medication ?Instructions ?Recorded ?Confirmed ?Last Taken ?Type calcium carbonate (Calcium 600) 1,000 mg PO DAILY 11/20/22 10/16/23 Unknown History cholecalciferol (vitamin D3) 25 25 mcg PO DAILY 11/20/22 10/16/23 Unknown History mcg (1,000 unit) capsule omega-3 fatty acids 1,000 mg 1,000 mg PO DAILY 11/20/22 10/16/23 Unknown History capsule cyanocobalamin (vitamin B-12) 100 100 mcg PO DAILY 10/16/23 10/16/23 Unknown History mcg tablet (Vitamin B-12) doxepin 3 mg tablet 3 mg PO BEDTIME PRN insomnia 10/16/23 10/16/23 Unknown History garlic 100 mg tablet 100 mg PO DAILY 10/16/23 10/16/23 Unknown History nabil (Zingiber officinalis) 500 500 mg PO DAILY 10/16/23 10/16/23 Unknown History mg capsule magnesium oxide 300 mg PO DAILY 10/16/23 10/16/23 Unknown History melatonin 10 mg tablet 10 mg PO BEDTIME PRN Insomnia 10/16/23 10/16/23 Unknown History turmeric root extract 1,053 mg 1,076 mg PO DAILY 10/16/23 10/16/23 Unknown History tablet zinc 100 mg tablet 100 mg PO DAILY 10/16/23 10/16/23 Unknown History Exam Height,Weight and Vital Signs: Height 5 ft 2 in Weight 74.843 kg Pertinent Lab Results Pertinent Lab Results: Laboratory Tests 05/04/23 11:41 WBC 9.0 Hgb 12.3 Hct 37.9 Plt Count 252 Sodium 136 Potassium 4.3 Chloride 102 Carbon Dioxide 27 BUN 13 Creatinine 0.91 Narrative Narrative: EKG 04/2023 Vent. Rate : 069 BPM Atrial Rate : 069 BPM P-R Int : 198 ms QRS Dur : 072 ms QT Int : 360 ms P-R-T Axes : 066 015 047 degrees QTc Int : 385 ms Normal sinus rhythm Low voltage QRS Borderline ECG When compared with ECG of 14-AUG-2022 17:28, No significant changes seen Assessment and Plan Assessment Anesthesia Assessment: Chart Reviewed Documented by User: Humble Oneill MD 10/19/23 12:34 [facility] Past Medical History Medical History (Updated 10/16/23 @ 06:51 by Jolanta Woodard RN) Pancreatitis Hiatal hernia Anxiety Depression Pulmonary nodule Thyroid nodule PUD (peptic ulcer disease) Blood pressure elevated without history of HTN Hypertension Family History Family History Mother No problems noted. Father No problems noted. Sister Breast cancer Sister Breast cancer Daughter No problems noted. Daughter No problems noted. Daughter No problems noted. Son No problems noted. Son No problems noted. Other Mental health disorder Substance use disorder Family history of problems with anesthesia: No Surgical History Surgical History (Updated 10/16/23 @ 06:51 by Jolanta Woodard RN) History of esophagogastroduodenoscopy (EGD) H/O colonoscopy Hx of melanoma excision H/O cervical spine surgery History of lumbar surgery History of knee replacement History of cholecystectomy History of Problems with Anesthesia: No Social History Social History (Updated 10/02/23 @ 12:48 by TUNG Membreno) Housing: House Alcohol intake: current Alcohol intake frequency: holidays/special occasions only Patient Tobacco Use Status: Never used Tobacco e-Cigarette/Vaping Use: Never Used Second Hand Smoke Exposure: No Use of substances other than those prescribed or required for medical reasons: No Are you DNR?: No Advance Directives: No Advance Directives Information Provided: Yes service: No Current occupational status: retired Cognitive needs: No Hearing needs: No Vision needs: Yes Meds Allergies Allergy/AdvReac Type Severity Reaction Status Date / Time cyclobenzaprine Allergy Severe I WENT Verified 10/02/23 12:41 [From FLEXERIL] BLIND bupropion [From WELLBUTRIN] Allergy Intermediate Swelling, Verified 10/02/23 12:41 ST, Itchy tongue divalproex sodium Allergy Unknown INSOMNIA,AND Verified 10/02/23 12:41 [From DEPAKOTE] OTHER RXNS doxycycline [DOXYCYCLINE] Allergy Unknown UNKNOWN, Verified 10/02/23 12:41 tongue swelling Flexeril Allergy Unknown lost vision Verified 10/02/23 12:41 gabapentin [GABAPENTIN] Allergy Unknown UNKNOWN, Verified 10/02/23 12:41 unsure lamotrigine [LAMOTRIGINE] Allergy Unknown UNKNOWN Verified 10/02/23 12:41 fluoxetine Allergy Unknown Verified 10/16/23 06:48 hydromorphone [From Dilaudid] Allergy Unknown Verified 10/16/23 06:48 naproxen Allergy Unknown Verified 10/16/23 06:48 NSAIDS (Non-Steroidal Allergy Unknown Verified 10/16/23 06:48 Anti-Inflamma pantoprazole [From Protonix] Allergy Unknown Verified 10/16/23 06:48 pravastatin Allergy Unknown Verified 10/16/23 06:48 pregabalin [From Lyrica] Allergy Unknown Verified 10/16/23 06:48 sulfamethoxazole Allergy Unknown Verified 10/16/23 06:48 [From Bactrim] trimethoprim [From Bactrim] Allergy Unknown Verified 10/16/23 06:48 losartan AdvReac Intermediate sob Verified 10/02/23 12:41 Home Medications ?Medication ?Instructions ?Recorded ?Confirmed ?Last Taken ?Type calcium carbonate (Calcium 600) 1,000 mg PO DAILY 11/20/22 10/16/23 Unknown History cholecalciferol (vitamin D3) 25 25 mcg PO DAILY 11/20/22 10/16/23 Unknown History mcg (1,000 unit) capsule omega-3 fatty acids 1,000 mg 1,000 mg PO DAILY 11/20/22 10/16/23 Unknown History capsule cyanocobalamin (vitamin B-12) 100 100 mcg PO DAILY 10/16/23 10/16/23 Unknown History mcg tablet (Vitamin B-12) doxepin 3 mg tablet 3 mg PO BEDTIME PRN insomnia 10/16/23 10/16/23 Unknown History garlic 100 mg tablet 100 mg PO DAILY 10/16/23 10/16/23 Unknown History nabil (Zingiber officinalis) 500 500 mg PO DAILY 10/16/23 10/16/23 Unknown History mg capsule magnesium oxide 300 mg PO DAILY 10/16/23 10/16/23 Unknown History melatonin 10 mg tablet 10 mg PO BEDTIME PRN Insomnia 10/16/23 10/16/23 Unknown History turmeric root extract 1,053 mg 1,076 mg PO DAILY 10/16/23 10/16/23 Unknown History tablet zinc 100 mg tablet 100 mg PO DAILY 10/16/23 10/16/23 Unknown History Exam Airway Denture: Upper Partial: Lower Loose/Missing/Broken Teeth: No Heart: rrr Lungs: cta Assessment and Plan Assessment Anesthesia Assessment: Anesthesia Plan Discussed Final Anesthetic Review Family History of Problems with Anesthesia: No History of Problems with Anesthesia: No NPO: Yes ASA Class: II and III Final Preanesthetic Review: No Changes in Pt Med Stat, Meds/Allgs Chart Reviewed, Consent Obtained/Reviewed and Anes Risks/Benef Reviewed Patient Risk: Intermediate Procedure Risk: Intermediate Anesthetic Plan Anesthetic Plan: MAC: Disposition: Standard PACU
[2023-10-19 12:14] VITALS: BP 163/62; PULSE 57; RESP 18; TEMP 36.5; O2SAT 99; BMI 29.0
[2023-10-19 12:22] VITALS: BMI 29.0
[2023-10-19] MEDS: Lactated Ringers 1,000 ML 100 ML IVCONT (12:37)
[2023-10-19 13:08] VITALS: BP 136/72; PULSE 58; RESP 18; TEMP 36.1; O2SAT 98
--- NOTE | 2023-10-19 13:19 | P.BOP_ITS ---
Brief Operative Note Date of Service: 10/19/23 Pre-op diagnosis: Dysphagia, GERD Post-op diagnosis: other (Hiatal hernia) Procedure: EGD with Balloon dilation of EG Junction from 19 to 20mm, and biopsies Surgeon: Omero Farah MD Anesthesia: MAC Was an Roll Form Operator used for this Procedure?: No Estimated blood loss (mL): 2.0 Pathology: other (A. EG Junction at 34cm B. Esophagus 20-25cm) Condition: stable Disposition: PACU
[2023-10-19 13:23] VITALS: BP 144/97; PULSE 57; RESP 20; TEMP 36.9; O2SAT 100
--- NOTE | 2023-10-19 13:39 | OP_ITS ---
DATE OF SERVICE: 10/19/2023 SURGEON: Omero Farah MD INDICATIONS: The patient presents for evaluation of gastroesophageal reflux and dysphagia. Full consent has been obtained from her for this, including risks of bleeding and perforation. PREOPERATIVE DIAGNOSIS: POSTOPERATIVE DIAGNOSIS: PROCEDURE PERFORMED: Esophagogastroduodenoscopy with balloon dilation of gastroesophageal junction and biopsies. ESTIMATED BLOOD LOSS: COMPLICATIONS: ANESTHESIA: Monitored anesthesia care. ASSISTANTS: SPECIMENS: PREOPERATIVE DIAGNOSES: Gastroesophageal reflux and dysphagia. POSTOPERATIVE DIAGNOSES: Gastroesophageal reflux, dysphagia, hiatal hernia, and rule out eosinophilic esophagitis. DESCRIPTION OF PROCEDURE: The patient was placed in the left lateral decubitus position. The Olympus video gastroscope was passed in the posterior oropharynx and upper esophagus under direct vision. The scope was passed slowly to the distal esophagus. The gastroesophageal junction appeared at 34 cm. There was some slight irregularity consistent with reflux, but no evidence of Bose esophagus nor esophagitis. The scope easily entered the stomach. There was no sign of any stricture. There was a small hiatal hernia. The scope was advanced to the pylorus and the duodenum was cannulated to the descending portion. The duodenum including the bulb appeared normal without mass or ulceration. The scope was withdrawn back to the stomach. The gastric antrum and body appeared normal with good peristalsis. The scope was retroflexed visualizing the proximal stomach carefully, which appeared normal, without any sign of mass or ulceration. The scope was straightened and withdrawn back to the esophagus. Given her symptoms, I did use a [employer] incremental balloon to dilate the gastroesophageal junction from 19 mm to 20 mm at the recommended pressure for between 30 and 60 seconds each. The balloon itself, in the 20 mm inflation, pulled easily into and out of the stomach. There was no heme noted post-dilation. I did obtain biopsies at the EG junction at 34 cm. Proximal to this, the esophageal mucosa appeared normal. There was no sign of any proximal esophageal rings nor webs. Biopsies were obtained in the proximal esophagus between 20 and 25 cm. The scope was withdrawn from the patient. She tolerated the procedure well and was returned to the recovery area in stable condition. IMPRESSION: 1. Hiatal hernia, gastroesophageal reflux. 2. Rule out eosinophilic esophagitis. PLAN: The patient has been advised to use omeprazole on a daily basis. She will have a followup office visit. If she continues to have significant upper GI complaints in regard to her dysphagia, we can obtain a barium swallow and/or esophageal motility studies. MD LAUREN Miller/CARLOS EDUARDO / [phone]
== END 2023-10-19 15:03 | disposition home or self-care (01) ==
PROVIDERS: PCP Internal Medicine; Visit Provider Internal Medicine
PROC: (CPT 43249; principal; 2023-10-19 14:20)
DX: R13.19 Other dysphagia (principal); K21.00 Gastro-esophageal reflux disease with esophagitis, without bleeding; K44.9 Diaphragmatic hernia without obstruction or gangrene
CPT/HCPCS: 43249; 43239; 88305; 88313; C1726; J2704

== ENCOUNTER 2023-12-02 10:24 | Outpatient (AMB) | payer OTHER, SELFPAY ==
[2023-12-02 10:27] VITALS: BP 140/70; PULSE 60; O2SAT 97; BMI 27.8
--- NOTE | 2023-12-02 10:27 | A.OFFPC_ITS ---
Vital Signs 12/02/23 10:27 12/02/23 11:10 Height 5 ft 3 in Weight 157 lb 0.2 oz BMI 27.8 BP 140/70 H 128/80 Blood Pressure Location Lt brachial Lt brachial Position Sitting Sitting Pulse 60 Pulse Source Pulse Oximeter Pulse Oximetry (%) 97 Oxygen Delivery Method Room Air Intake Visit Reasons: 2 Month F/U Head Of Data Required: No Allergies cyclobenzaprine [From FLEXERIL] Allergy (Severe, Verified 12/02/23 10:28) I WENT BLIND bupropion [From WELLBUTRIN] Allergy (Intermediate, Verified 12/02/23 10:28) Swelling, ST, Itchy tongue divalproex sodium [From DEPAKOTE] Allergy (Unknown, Verified 12/02/23 10:28) INSOMNIA,AND OTHER RXNS doxycycline [DOXYCYCLINE] Allergy (Unknown, Verified 12/02/23 10:28) UNKNOWN, tongue swelling Flexeril Allergy (Unknown, Verified 12/02/23 10:28) lost vision gabapentin [GABAPENTIN] Allergy (Unknown, Verified 12/02/23 10:28) UNKNOWN, unsure lamotrigine [LAMOTRIGINE] Allergy (Unknown, Verified 12/02/23 10:28) UNKNOWN fluoxetine Allergy (Verified 12/02/23 10:28) Unknown hydromorphone [From Dilaudid] Allergy (Verified 12/02/23 10:) Unknown naproxen Allergy (Verified 12/02/23 10:28) Unknown NSAIDS (Non-Steroidal Anti-Inflamma Allergy (Verified 12/02/23 10:28) Unknown pantoprazole [From Protonix] Allergy (Verified 12/02/23 10:28) Unknown pravastatin Allergy (Verified 12/02/23 10:28) Unknown pregabalin [From Lyrica] Allergy (Verified 12/02/23 10:28) Unknown sulfamethoxazole [From Bactrim] Allergy (Verified 12/02/23 10:28) Unknown trimethoprim [From Bactrim] Allergy (Verified 12/02/23 10:28) Unknown losartan Adverse Reaction (Intermediate, Verified 12/02/23 10:28) sob Medication List - Last Reconciled 12/02/23 by Joaquin Leonard MD calcium carbonate (Calcium 600) 1,000 mg PO DAILY cholecalciferol (vitamin D3) 25 mcg PO DAILY cyanocobalamin (vitamin B-12) (Vitamin B-12) 100 mcg PO DAILY doxepin 3 mg PO BEDTIME PRN duloxetine 60 mg PO DAILY fluconazole (Diflucan) take 2 tabs the first day then once a day orally; gabapentin 300 mg PO TID 90 days garlic 100 mg PO DAILY nabil (Zingiber officinalis) 500 mg PO DAILY hydrochlorothiazide 12.5 mg PO QAM magnesium oxide 300 mg PO DAILY melatonin 10 mg PO BEDTIME PRN omega-3 fatty acids 1,000 mg PO DAILY omeprazole 40 mg PO DAILY turmeric root extract 1,076 mg PO DAILY zinc 100 mg PO DAILY Tobacco use date assessed: 10/02/23 Fall risk assessment: No Falls in past year Last assessed Fall Risk: 12/02/23 Dental Screening Dental Screen Date: 12/02/23 HPI 2 Month F/U HPI Details 77-year-old overweight female with a his tory of post laminectomy syndrome cervical and lumbar, PTSD GERD hypertension coming in for follow-up. Last seen in 09/26/2023. Patient has met with pain management trial of lumbar epidural steroid injection patient had also EGD done 10/26/2023 on omeprazole biopsy showing moderate chronic active inflammation with active esophagitis PFSH Medical History (Updated 12/02/23 @ 11:06 by Joaquin Leonard MD) Pancreatitis Hiatal hernia Anxiety Depression Pulmonary nodule Thyroid nodule PUD (peptic ulcer disease) Blood pressure elevated without history of HTN Hypertension Surgical History (Updated 10/16/23 @ 06:51 by Jolanta Woodard RN) History of esophagogastroduodenoscopy (EGD) H/O colonoscopy Hx of melanoma excision H/O cervical spine surgery History of lumbar surgery History of knee replacement History of cholecystectomy Family History Mother No problems noted. Father No problems noted. Sister Breast cancer Sister Breast cancer Daughter No problems noted. Daughter No problems noted. Daughter No problems noted. Son No problems noted. Son No problems noted. Other Mental health disorder Substance use disorder Social History (Updated 10/02/23 @ 12:48 by TUNG Membreno) Housing: House Alcohol intake: current Alcohol intake frequency: holidays/special occasions only Patient Tobacco Use Status: Never used Tobacco e-Cigarette/Vaping Use: Never Used Second Hand Smoke Exposure: No service: No Current occupational status: retired Cognitive needs: No Hearing needs: No Vision needs: Yes Questionnaire PHQ-9 Over the last 2 weeks, how often have you been bothered by any of the following problems? 1. Little interest or pleasure in doing things: not at all 2. Feeling down, depressed, or hopeless: not at all 3. Trouble falling or staying asleep, or sleeping too much: not at all 4. Feeling tired or having little energy: not at all 5. Poor appetite or overeating: not at all 6. Feeling bad about yourself - or that you are a failure or have let yourself or your family down: not at all 7. Trouble concentrating on things, such as reading the newspaper or watching television: not at all 8. Moving or speaking so slowly that other people could have noticed. Or the opposite - being so fidgety or restless that you have been moving around a lot more than usual: not at all 9. Thoughts that you would be better off or of hurting yourself in some way: not at all Total score: 0 Depression Screening Interpretation: Negative Depression Screening Done: Yes Source: Developed by Drs. Omero Back, Adriana Suarez, Emerson Tanner and colleagues, with an educational blaine from [employer]. Thrive Questionnaire Date Thrive assessed: 10/02/23 I am a: Patient What is your living situation today?: I have a steady place to live Within the past 12 months, did the food you bought not last and you didn't have the money to get more?: Never true Within the past 12 months, did you worry whether your food would run out before you got money to buy more?: Never true Do you have trouble paying for medicines?: No Do you have trouble getting transportation to medical appointments?: No Do you have trouble paying your heating and electricity bill?: No Do you have trouble taking care of your child, family member or friend?: No Do you have trouble with day-to-day activities such as bathing, preparing meals, shopping, managing finances, etc.?: No Are you currently unemployed and looking for a job?: No Are you interested in more education?: No Currently or been in a relationship where the following occur: no concerns reported THRIVE Score: 0 AUDIT C Alcohol Use Questionnaire (AUDIT-C) 1. How often do you have a drink containing alcohol?: Never Total Score: 0 RAEANN-7 AMB Questionnaire RAEANN-7 Date RAEANN - 7 assessed: 10/02/23 Source: Developed by Drs. Omero Back, Adriana Suarez, Emerson Tanner and colleagues, with an educational blaine from [employer]. Physical exam (Primary Care) Vital Signs: Last Vital Signs Pulse 60 12/02/23 10:27 BP 140/70 H 12/02/23 10:27 Pulse Ox 97 12/02/23 10:27 Oxygen Delivery Method Room Air 12/02/23 10:27 BMI result Body Mass Index 27.8 Tobacco/Smoking Status: Tobacco use Status Tobacco use date assessed 10/02/23 12/02/23 10:28 Patient Tobacco Use Status Never used Tobacco 12/02/23 10:28 e-Cigarette/Vaping Use Never Used 12/02/23 10:28 PHQ-9: PHQ-9 Score PHQ-9: Total score 0 12/02/23 10:28 Depression Screening Interpretation: Negative Thrive Assessment: Date of Thrive Assessment Date Thrive assessed 10/02/23 12/02/23 10:28 Currently or been in a relationship where the following occur: no concerns reported Const General: alert; No acute distress Eyes Conjunctivae: conjunctivae normal Resp Auscultation: clear to auscultation bilaterally Cardio Rate: regular rate Rhythm: regular rhythm GI Inspection: Yes normal to inspection Extrem General: Yes normal to inspection and No edema Assessment and Plan Assessment & Plan (1) Postlaminectomy syndrome, lumbar: Code(s): M96.1 - Postlaminectomy syndrome, not elsewhere classified Plan: Patient has met with the pain management and has had lumbar epidural injection. (2) Postlaminectomy syndrome, cervical: Code(s): M96.1 - Postlaminectomy syndrome, not elsewhere classified Plan: Patient follows up with pain management (3) PTSD (post-traumatic stress disorder): Comment: [facility] 2022 Code(s): F43.10 - Post-traumatic stress disorder, unspecified Plan: Continuing on duloxetine 30 mg once a day (4) GERD (gastroesophageal reflux disease): Comment: May 2023Trace laryngeal penetration with thick barium 2. Large anterior osteophyte at level of C3-4, however, no significant mass effect. 3. Presbyesophagus. Patulous esophagus. 4. Small type I hiatal hernia 5. Severe gastroesophageal reflux 6. Multiple small areas of contrast pooling in the fundus and body the stomach suggestive of erosive gastritis. Code(s): K21.9 - Gastro-esophageal reflux disease without esophagitis Plan: Avoid the foods that causes that usually spicy foods, tomato products, juices, coffee, soda and foods that your sensitive to. After eating do not lie down, allow 3-4 hours before in lie down. And keep the head of bed above 30 degrees to avoid the acid from going up. (5) Overweight (BMI 25.0-29.9): Code(s): E66.3 - Overweight Plan: Continue with diet and exercise (6) Hypertension: Code(s): I10 - Essential (primary) hypertension Plan: Continue with blood pressure medication. Decrease salt intake and exercise on hydrochlorothiazide 12.5 mg once a day (7) Tinea corporis: Code(s): B35.4 - Tinea corporis Medications: New omeprazole 40 mg PO DAILY 30 caps 0RF duloxetine 60 mg PO DAILY 30 caps 4RF F43.10 - Post-traumatic stress disorder, unspecified, M96.1 - Postlaminectomy syndrome, not elsewhere classified fluconazole (Diflucan) take 2 tabs the first day then once a day orally; 8 tabs 0RF B35.4 - Tinea corporis Coding Level of Care Code Est Pt Level 4 (64438) Complex EM visit Add On G2211 Diagnoses Postlaminectomy syndrome, lumbar M96.1 Postlaminectomy syndrome, cervical M96.1 PTSD (post-traumatic stress disorder) F43.10 GERD (gastroesophageal reflux disease) K21.9 Overweight (BMI 25.0-29.9) E66.3 Hypertension I10 Tinea corporis B35.4
[2023-12-02 11:10] VITALS: BP 128/80
== END 2023-12-02 11:16 | disposition home or self-care (01) ==
PROVIDERS: PCP Internal Medicine; Visit Provider Internal Medicine
DX: M96.1 Postlaminectomy syndrome, not elsewhere classified (principal); F43.10 Post-traumatic stress disorder, unspecified; K21.9 Gastro-esophageal reflux disease without esophagitis; E66.3 Overweight; I10 Essential (primary) hypertension; B35.4 Tinea corporis
CPT/HCPCS: 99214; G2211

== ENCOUNTER 2024-03-01 10:32 | Outpatient (AMB) | payer OTHER, SELFPAY ==
[2024-03-01 10:32] VITALS: BP 160/92; PULSE 51; O2SAT 98; BMI 28.0
--- NOTE | 2024-03-01 10:32 | A.OFFPC_ITS ---
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 Required: No Allergies cyclobenzaprine [From FLEXERIL] Allergy (Severe, Verified 03/01/24 11:03) I WENT BLIND bupropion [From WELLBUTRIN] Allergy (Intermediate, Verified 03/01/24 11:03) Swelling, ST, Itchy tongue divalproex sodium [From DEPAKOTE] Allergy (Unknown, Verified 03/01/24 11:03) INSOMNIA,AND OTHER RXNS doxycycline [DOXYCYCLINE] Allergy (Unknown, Verified 03/01/24 11:03) UNKNOWN, tongue swelling Flexeril Allergy (Unknown, Verified 03/01/24 11:03) lost vision lamotrigine [LAMOTRIGINE] Allergy (Unknown, Verified 03/01/24 11:03) UNKNOWN fluoxetine Allergy (Verified 03/01/24 11:03) Unknown naproxen Allergy (Verified 03/01/24 11:03) Unknown NSAIDS (Non-Steroidal Anti-Inflamma Allergy (Verified 03/01/24 11:03) Unknown pantoprazole [From Protonix] Allergy (Verified 03/01/24 11:03) Unknown pravastatin Allergy (Verified 03/01/24 11:03) Unknown pregabalin [From Lyrica] Allergy (Verified 03/01/24 11:03) Unknown sulfamethoxazole [From Bactrim] Allergy (Verified 03/01/24 11:03) Unknown trimethoprim [From Bactrim] Allergy (Verified 03/01/24 11:03) Unknown losartan Adverse Reaction (Intermediate, Verified 03/01/24 11:03) sob Medication List - Last Reconciled 03/01/24 by Kanchan Price PA-C calcium carbonate (Calcium 600) 1,000 mg PO DAILY cholecalciferol (vitamin D3) 25 mcg PO DAILY cyanocobalamin (vitamin B-12) (Vitamin B-12) 100 mcg PO DAILY gabapentin 300 mg PO TID 90 days garlic 100 mg PO DAILY hydrochlorothiazide 12.5 mg PO QAM magnesium oxide 300 mg PO DAILY melatonin 10 mg PO BEDTIME PRN omega-3 fatty acids 1,000 mg PO DAILY zinc 100 mg PO DAILY Tobacco use date assessed: 03/01/24 Fall risk assessment: 1 Fall in past year Last assessed Fall Risk: 03/01/24 Dental Screening Dental Screen Date: 12/02/23 Did you have a dental visit in the last 12 months?: No Did you have a dental problem in the last 6 months where you did not have access to dental care?: No HPI PE HPI Details 77-year-old overweight female with a his tory of post laminectomy syndrome cervical and lumbar, PTSD GERD hypertension last seen by 11/2023 coming in annual exam. She does have a few concerns today. She has had a chronic cough with clear sputum for several years and previously underwent PFT in 2018 but feels like the chest tightness and coughing has been worsening over the last few years. She also mentions she has a history of anxiety and has been on several different medications for treatment with little relief. She also mentions she has been without her HCTZ for several months and blood pressures at home have been variable. [facility] Medical History Pancreatitis Hiatal hernia Anxiety Depression Pulmonary nodule Thyroid nodule PUD (peptic ulcer disease) Blood pressure elevated without history of HTN Hypertension Surgical History History of esophagogastroduodenoscopy (EGD) H/O colonoscopy Hx of melanoma excision H/O cervical spine surgery History of lumbar surgery History of knee replacement History of cholecystectomy Family History Mother No problems noted. Father No problems noted. Sister Breast cancer Sister Breast cancer Daughter No problems noted. Daughter No problems noted. Daughter No problems noted. Son No problems noted. Son No problems noted. Other Mental health disorder Substance use disorder Social History Housing: House Alcohol intake: current Alcohol intake frequency: holidays/special occasions only Patient Tobacco Use Status: Never used Tobacco e-Cigarette/Vaping Use: Never Used Second Hand Smoke Exposure: No service: No Current occupational status: retired Cognitive needs: No Hearing needs: No Vision needs: Yes Questionnaire PHQ-9 Over the last 2 weeks, how often have you been bothered by any of the following problems? 1. Little interest or pleasure in doing things: several days 2. Feeling down, depressed, or hopeless: several days 3. Trouble falling or staying asleep, or sleeping too much: not at all 4. Feeling tired or having little energy: not at all 5. Poor appetite or overeating: not at all 6. Feeling bad about yourself - or that you are a failure or have let yourself or your family down: not at all 7. Trouble concentrating on things, such as reading the newspaper or watching television: not at all 8. Moving or speaking so slowly that other people could have noticed. Or the opposite - being so fidgety or restless that you have been moving around a lot more than usual: not at all 9. Thoughts that you would be better off or of hurting yourself in some way: not at all Total score: 2 Depression Screening Interpretation: Negative Depression Screening Done: Yes 40960 - PHQ-9 Billing: Yes Source: Developed by Drs. Omero Back, Adriana Suarez, Emerson Tanner and colleagues, with an educational blaine from [employer]. Thrive Questionnaire Date Thrive assessed: 10/02/23 I am a: Patient What is your living situation today?: I have a steady place to live Within the past 12 months, did the food you bought not last and you didn't have the money to get more?: Never true Within the past 12 months, did you worry whether your food would run out before you got money to buy more?: Never true Do you have trouble paying for medicines?: No Do you have trouble getting transportation to medical appointments?: No Do you have trouble paying your heating and electricity bill?: No Do you have trouble taking care of your child, family member or friend?: No Do you have trouble with day-to-day activities such as bathing, preparing meals, shopping, managing finances, etc.?: No Are you currently unemployed and looking for a job?: No Are you interested in more education?: No Please select the resources that you would like help with: None Currently or been in a relationship where the following occur: No concerns reported THRIVE Score: 0 AUDIT C Alcohol Use Questionnaire (AUDIT-C) 1. How often do you have a drink containing alcohol?: Never 3. How often do you have six or more drinks on one occasion?: Never Total Score: 0 RAEANN-7 AMB Questionnaire RAEANN-7 Date RAEANN - 7 assessed: 03/01/24 Feeling nervous, anxious, or on edge: 1 = Several days Not being able to stop or control worryin = Several days Worrying too much about different things: 1 = Several days Trouble relaxin = Several days Being so restless that it is hard to sit still: 1 = Several days Becoming easily annoyed or irritable: 1 = Several days Feeling afraid as if something awful might happen: 0 = Not at all Total RAEANN-7 score (0-4 normal; 5-9 mild; 10-14 moderate; 15-21 severe): 6 Source: Developed by Drs. Omero Back, Adriana Suarez, Emerson Tanner and colleagues, with an educational blaine from [employer]. RAEANN-7 Assessment Billing RAEANN-7 Assessment Tool: RAEANN-7 Assessment 60804 Review of Systems Const Denies body aches, Denies chills, Denies fatigue, Denies fever(s), Denies headache(s) and Denies poor appetite Eyes Reports no additional complaints ENT Denies dysphagia, Denies dizziness, Denies headache(s) and Denies odynophagia Card Denies chest pain, Denies syncope, Denies edema, Denies irregular heart rhythm, Denies lightheadedness, Denies dyspnea and Reports dyspnea on exertion Resp Reports cough (last few years), Denies dyspnea and Reports dyspnea on exertion GI Denies abdominal pain, Denies constipation, Denies dysphagia, Denies diarrhea, Denies nausea, Denies odynophagia and Denies vomiting Reports no additional complaints Musc Reports no additional complaints and Denies abnormal gait Skin/Breast Reports system reviewed and no additional complaints, except as documented Neuro Denies abnormal gait, Denies dizziness, Denies syncope and Denies headache(s) Psych Reports anxiety Endo Denies fatigue Physical exam (Primary Care) Vital Signs: Last Vital Signs Pulse 51 03/01/24 10:32 BP 210/70 H 03/01/24 11:23 Pulse Ox 98 03/01/24 10:32 Oxygen Delivery Method Room Air 03/01/24 10:32 BMI result Body Mass Index 28.0 Tobacco/Smoking Status: Tobacco use Status Tobacco use date assessed 03/01/24 03/01/24 10:43 Patient Tobacco Use Status Never used Tobacco 03/01/24 10:37 e-Cigarette/Vaping Use Never Used 03/01/24 10:37 PHQ-9: PHQ-9 Score PHQ-9: Total score 2 03/01/24 10:43 Depression Screening Interpretation: Negative Thrive Assessment: Date of Thrive Assessment Date Thrive assessed 10/02/23 03/01/24 10:37 Currently or been in a relationship where the following occur: No concerns reported Const General: cooperative, healthy appearing, comfortable and no acute distress Orientation/consciousness: patient oriented x3 HENMT Head: Yes normocephalic Ears: hearing grossly normal bilaterally, external ears normal, TM's normal bilaterally and EAC's normal General nose exam: Normal external nose present Face and sinus: Yes normal facial exam and Yes sinuses nontender Mouth: Normal oral and palatal mucosa present and tongue normal Throat: Yes posterior oropharynx normal Eyes General: appearance normal, both eyes and all related structures Conjunctivae: conjunctivae normal Pupils: Equal, round and reactive pupils present EOM: EOMs intact bilaterally and No Nystagmus present Neck Neck: Yes normal visual inspection, Yes full ROM and Yes no lymphadenopathy Chest Chest palpation & inspection: normal inspection of the chest Resp Effort & Inspection: normal respiratory effort Auscultation: clear to auscultation bilaterally, no crackles, no rales, no rhonchi, no wheezes and breath sounds present Cardio Rate: regular rate Rhythm: regular rhythm Peripheral pulses: radial pulses present and dorsalis pedis present GI Inspection: Yes normal to inspection and No Abdominal wall edema Palpation (GI): Soft to palpation, not firm and nontender Auscultation: normal bowel sounds Rectal Exam - Female: deferred General: Yes no CVA tenderness Back/Spine/Pelvis Back: no CVA tenderness Skin General skin exam: no rashes or lesions noted Neuro General: patient oriented x3 Cranial nerves: Yes Equal, round and reactive pupils present, Yes Midline tongue present, Yes Ability to bilaterally elevate shoulders present and No Nystagmus present Gait exam (Neuro): Normal gait present Extrem General: Yes normal to inspection, Yes full ROM, No no pedal edema and No edema Psych Speech and movement: Normal speech and movement present Affect: normal affect Insight: Good insight present (Psych) Judgement: Good judgement present (Psych) Assessment and Plan Assessment & Plan (1) Shortness of breath: Code(s): R06.02 - Shortness of breath Plan: Patient will have occasional shortness of breath with activity and was previously evaluated with PFT in 2018 which was normal. She feels the shortness of breath and coughing has gotten worse over the last several years and would like an inhaler. Advised patient if we were going to give inhaler we would need updated PFTsto evaluate if that would be effective for her. Order placed today. (2) Anxiety: Code(s): F41.9 - Anxiety disorder, unspecified Plan: Patient has been on several different treatments for anxiety in the past and would like to be evaluated by psych. Referral to psych bridge clinic placed today. (3) Obesity (BMI 30.0-34.9): Code(s): E66.9 - Obesity, unspecified Plan: Encouraged healthy diet and regular exercise as tolerated. (4) Annual physical exam: Code(s): Z00.00 - Encounter for general adult medical examination without abnormal findings Plan: Patient is up-to-date on all recommended routine screenings and vaccinations for her age. Updated blood work ordered at this visit and order placed for DEXA scan. (5) PTSD (post-traumatic stress disorder): Comment: [facility] 2022 Code(s): F43.10 - Post-traumatic stress disorder, unspecified Plan: Referral placed to outpatient psych clinic (6) GERD (gastroesophageal reflux disease): Comment: May 2023Trace laryngeal penetration with thick barium 2. Large anterior osteophyte at level of C3-4, however, no significant mass effect. 3. Presbyesophagus. Patulous esophagus. 4. Small type I hiatal hernia 5. Severe gastroesophageal reflux 6. Multiple small areas of contrast pooling in the fundus and body the stomach suggestive of erosive gastritis. Code(s): K21.9 - Gastro-esophageal reflux disease without esophagitis Plan: Not currently on medical management. Avoid trigger foods such as citrus, tomato products, soda, caffeine, spicy foods and other foods that may be irritating to your stomach. Avoid laying flat 3-4 hours after eating and elevate the head of the bed 30 degrees to prevent acid from moving into the esophagus. (7) Osteoporosis: Comment: 2021 Code(s): M81.0 - Age-related osteoporosis without current pathological fracture Plan: Continue on calcium and Vitamin D supplement. Order placed for updated DEXA. (8) Lumbar degenerative disc disease: Comment: MRI January 2017 lumbar spine moderate to severe degenerative disc L1-L2 abuts on the exiting left L1 nerve root disc protrusion L2 nerve root postsurgical changes L4-L5 moderate spondylosis 10/2022 [facility] ddd LUMBAR WITH DISC PATH BILATERAL NERVE ROOT l1-2 AND l4-5 Code(s): M51.36 - Other intervertebral disc degeneration, lumbar region Plan: Continue on gabapentin. (9) Hypertension: Code(s): I10 - Essential (primary) hypertension Plan: Blood pressure elevated in the office without any symptoms. Patient has been without her medications for several months, medication was refilled and strongly advised patient to begin taking this medication. Reviewed with patient red flag symptoms and when to present to the ER. Will follow up in one week with nurse navigator for repeat blood pressure check and follow up at next appointment. Plan This note was constructed using voice recognition software. While every effort has been made to ensure accuracy and chorus dancer, still areas may have been included sometimes these areas may affect the content or meeting of the given symptoms. Total time spent caring for the patient today was 30 minutes. This includes time spent before the visit reviewing the chart, time spent during the visit, and time spent after the visit and documentation. Orders: Orders PFT pulmonary function test Today R06.02 - Shortness of breath Hemoglobin A1c Today Z00.00 - Encounter for general adult medical examination without abnormal findings TSH reflex Free T4 Today Z00.00 - Encounter for general adult medical examination without abnormal findings Free T4 (Free Thyroxine) Today Z00.00 - Encounter for general adult medical examination without abnormal findings Vitamin B12 and Folate Today Z00.00 - Encounter for general adult medical examination without abnormal findings Vitamin D 25-OH (D2 and D3) Today Z00.00 - Encounter for general adult medical examination without abnormal findings Comprehensive Met. Panel Today Z00.00 - Encounter for general adult medical examination without abnormal findings Complete Blood Count Auto Diff Today Z00.00 - Encounter for general adult medical examination without abnormal findings Lipid Panel Today Z00.00 - Encounter for general adult medical examination without abnormal findings XR DEXA axial skeleton Today Z78.0 - Asymptomatic menopausal state Magnesium Today Z00.00 - Encounter for general adult medical examination without abnormal findings Referrals Psychiatry Outpatient Consultation Service F41.9 - Anxiety disorder, unspecified, F43.10 - Post-traumatic stress disorder, unspecified Medications: New duloxetine 30 mg PO DAILY 30 caps 3RF Refilled hydrochlorothiazide 12.5 mg PO QAM 30 tabs 3RF I10 - Essential (primary) hypertension Discontinued duloxetine Discontinued Reason: Patient no longer taking 30 mg PO DAILY 30 days 30 caps 1RF F43.10 - Post-traumatic stress disorder, unspecified, M96.1 - Postlaminectomy syndrome, not elsewhere classified Coding Level of Care Code Est Pt Level 3 (46408) Est Pt Prev Care >65y(07511) Diagnoses Shortness of breath R06.02 Anxiety F41.9 Obesity (BMI 30.0-34.9) E66.9 Annual physical exam Z00.00 PTSD (post-traumatic stress disorder) F43.10 GERD (gastroesophageal reflux disease) K21.9 Osteoporosis M81.0 Lumbar degenerative disc disease M51.36 Hypertension I10 Additional Codes RAEANN-7 Assessment Billing - RAEANN-7 Assessment Tool: RAEANN-7 Assessment 04520 ([id number])
[2024-03-01 11:23] VITALS: BP 210/70
== END 2024-03-01 11:30 | disposition home or self-care (01) ==
PROVIDERS: PCP Internal Medicine
DX: Z00.00 Encounter for general adult medical examination without abnormal findings (principal); R06.02 Shortness of breath; E66.9 Obesity, unspecified; Z68.28 Body mass index [BMI] 28.0-28.9, adult; F41.9 Anxiety disorder, unspecified; F43.10 Post-traumatic stress disorder, unspecified; K21.9 Gastro-esophageal reflux disease without esophagitis; M81.0 Age-related osteoporosis without current pathological fracture; M51.36 Other intervertebral disc degeneration, lumbar region; I10 Essential (primary) hypertension

== ENCOUNTER → 2024-03-01 10:32 | Outpatient (BNVA) | payer OTHER, SELFPAY | PROVIDERS: PCP Internal Medicine | DX: Z00.01 Encounter for general adult medical examination with abnormal findings (principal); R06.02 Shortness of breath; F41.9 Anxiety disorder, unspecified; E66.9 Obesity, unspecified; F43.10 Post-traumatic stress disorder, unspecified; K21.9 Gastro-esophageal reflux disease without esophagitis; M81.0 Age-related osteoporosis without current pathological fracture; M51.36 Other intervertebral disc degeneration, lumbar region; I10 Essential (primary) hypertension | CPT/HCPCS: 96127; 99212 ==

== ENCOUNTER 2024-03-28 09:07 | Outpatient (REF) | payer OTHER, SELFPAY ==
[2024-03-28 09:27] LABS: MANUAL DIFF FLAG NO
[2024-03-28 10:04] LABS: Basophils Absolute Auto 0.1 X10*3/uL (0.0-0.2); Basophils Percent Auto 1.5 % (0-2); Eosinophils Absolute Auto 0.4 X10*3/uL (0.0-0.4); Eosinophils Percent Auto 6.7 % (0-4); Hematocrit 37.5 % (37.0-47.0); Hemoglobin 12.2 g/dl (12.0-16.0); Imm Gran Abs Auto 0.01 X10*3/uL (0.00-0.03); Imm Gran Pct Auto 0.2 % (0.0-0.4); Lymphocytes Absolute Auto 2.1 X10*3/uL (1.2-4.9); Lymphocytes Percent Auto 36.7 % (20-40); Mean Corpuscular HGB Conc 32.5 g/dl (31.0-35.0); Mean Corpuscular Hemoglobin 31.4 pg (27.0-33.0); Mean Corpuscular Volume 96.6 fL (80.0-98.0); Mean Platelet Volume 9.6 fL (9.4-12.3); Monocytes Absolute Auto 0.4 X10*3/uL (0.1-1.2); Monocytes Percent Auto 6.9 % (2-11); Neutrophils Absolute Auto 2.8 x10*3/uL (2.0-8.3); Platelet Count 239 X10*3/uL (160-400); Red Blood Count 3.88 X10*6/uL (4.20-5.50); Red Cell Distribution Width 12.6 % (11.0-16.0); White Blood Count 5.8 X10*3/uL (4.8-10.8)
[2024-03-28 10:59] LABS: Anion Gap 11 (12-20)
[2024-03-28 11:04] LABS: Albumin Level 4.2 g/dL (3.5-5.0); Alkaline Phosphatase 77 U/L (39-117); Bilirubin Total 0.4 mg/dL (0.0-1.0); Blood Urea Nitrogen 16 mg/dL (9-16); Carbon Dioxide 30 mmol/L (22-29); Chloride 107 mmol/L (96-108); Cholesterol 190 mg/dL (<200); Estimated Glomerular Filt Rate 59; Glucose Random 101 mg/dL (60-115); HDL Cholesterol 54 mg/dL (>40); LDL Cholesterol Calculated 107 mg/dL (<100); Magnesium 2.1 mg/dL (1.6-2.6); Potassium 4.3 mmol/L (3.3-5.1); Sodium 144 mmol/L (135-145); Total Protein 6.7 g/dL (6.5-8.0); Triglycerides 147 mg/dL (<150)
[2024-03-28 11:15] LABS: Estimated Average Glucose 94 mg/dL; Hemoglobin A1C 95.7992 umol/L; Hemoglobin A1c % 4.9 % (<6.0); Total Hemoglobin (HGBA1C) 3210.2902 umol/L
[2024-03-28 11:21] LABS: Free T4 (Free Thyroxine) 0.98 ng/dL (0.71-1.85); TSH reflex Free T4 1.38 uIU/mL (0.32-4.0)
[2024-03-28 11:25] LABS: Folate 11.4 ng/mL (> or = 4.0); Vitamin B12 270 pg/mL (200-900)
[2024-03-28 13:07] LABS: Alanine Aminotransferase 16 U/L (0-31); Aspartate Amino Transferase 27 U/L (5-31)
[2024-04-02 12:33] LABS: Vitamin D 25-OH, D2 <4 ng/mL; Vitamin D 25-OH, D3 36 ng/mL; Vitamin D 25-OH, Total 36 ng/mL (30-100)
== END 2024-03-28 09:08 | disposition home or self-care (01) ==
LOC: HO.LAB 09:07
PROVIDERS: PCP Internal Medicine
DX: Z00.00 Encounter for general adult medical examination without abnormal findings (principal); Z13.1 Encounter for screening for diabetes mellitus
CPT/HCPCS: 36415; 80053; 80061; 82306; 82607; 82746; 83036; 83735; 84439; 84443; 85025

== ENCOUNTER 2024-05-25 10:34 | Outpatient (AMB) | payer OTHER, SELFPAY ==
[2024-05-25 11:14] VITALS: BP 148/74; PULSE 84; O2SAT 98; BMI 26.6
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
== END 2024-05-25 12:07 | disposition home or self-care (01) ==
PROVIDERS: PCP Internal Medicine; Visit Provider Internal Medicine
DX: S52.021A Displaced fracture of olecranon process without intraarticular extension of right ulna, initial encounter for closed fracture (principal); I60.9 Nontraumatic subarachnoid hemorrhage, unspecified; S32.599A Other specified fracture of unspecified pubis, initial encounter for closed fracture; S82.102A Unspecified fracture of upper end of left tibia, initial encounter for closed fracture; S02.2XXD Fracture of nasal bones, subsequent encounter for fracture with routine healing; V89.2XXA Person injured in unspecified motor-vehicle accident, traffic, initial encounter; H53.9 Unspecified visual disturbance

== ENCOUNTER → 2024-05-25 10:34 | Outpatient (BNVA) | payer OTHER, SELFPAY | PROVIDERS: PCP Internal Medicine; Visit Provider Internal Medicine | DX: I60.9 Nontraumatic subarachnoid hemorrhage, unspecified (principal); H53.9 Unspecified visual disturbance; S52.01 Torus fracture of upper end of ulna; S32.599D Other specified fracture of unspecified pubis, subsequent encounter for fracture with routine healing; S02.2XXD Fracture of nasal bones, subsequent encounter for fracture with routine healing; S82.102D Unspecified fracture of upper end of left tibia, subsequent encounter for closed fracture with routine healing; V89.2XXD Person injured in unspecified motor-vehicle accident, traffic, subsequent encounter | CPT/HCPCS: 99212 ==

== ENCOUNTER 2024-06-10 12:38 | Outpatient (AMB) | payer OTHER, SELFPAY ==
[2024-06-10 13:11] VITALS: BP 150/88; BMI 26.2
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
--- OUTSIDE RECORDS SUMMARY | 2024-06-10 14:02 | XMS_ITS ---
Author Organization [facility] Address [address] [place] [address] Care Team Providers Care Chemical Laboratory Technician Name Role Phone Joaquin Leonard MD Primary Care Provider Omero Mann Unavailable [phone] REASON FOR VISIT cancelled appt Encounters Encounter Location Date Provider Diagnosis [facility] [address] [place] [address] 02/09/2024 Omero Farah PLAN OF TREATMENT No Information
--- OUTSIDE RECORDS SUMMARY | 2024-06-10 14:02 | XMS_ITS ---
Author Organization [facility] Address [address] [place] [address] Care Team Providers Care Trauma Registrar Name Role Phone Joaquin Leonard MD Primary Care Provider Omero Mann Unavailable [phone] REASON FOR VISIT Patient presents today for dysphagia, gerd Encounters Encounter Location Date Provider Diagnosis [facility] [address] [place] [address] 02/10/2024 Omero Farah PLAN OF TREATMENT No Information
--- OUTSIDE RECORDS SUMMARY | 2024-06-10 14:02 | XMS_ITS ---
Author Organization [facility] Address [address] [place] [address] Care Team Providers Care Wet Mixer Name Role Phone Joaquin Leonard MD Primary Care Provider Omero Mann Unavailable [phone] REASON FOR VISIT PLease schedule f/u appt with Dr. Farah Encounters Encounter Location Date Provider Diagnosis [facility] [address] [place] [address] 10/27/2023 Omero Farah PLAN OF TREATMENT No Information
--- OUTSIDE RECORDS SUMMARY | 2024-06-10 14:03 | XMS_ITS | Patient Health Record ---
Author Organization [facility] Address [address] [place] [address] Care Team Providers Care Demolition Expert Name Role Phone Joaquin Leonard MD Primary Care Provider Omero Mann [phone] ALLERGIES Allergen (clinical drug ingredient) Drug/Non Drug Allergy documented on EMR Reaction Allergy Type Onset Date Status pregabalin Lyrica Unknown Drug Allergy Active Flexeril Unknown Drug Allergy Active valproate Divalproex Sodium Unknown Drug Allergy Active hydromorphone Dilaudid Unknown Drug Allergy Act darius sulfamethoxazole / trimethoprim Bactrim Unknown Drug Allergy Active pravastatin Pravastatin Unknown Drug Allergy Act darius Non-steroidal anti-inflammatory agent (FN) NSAIDs Unknown Drug Allergy Active gabapentin Gabapentin Unknown Drug Allergy Activ e fluoxetine Fluoxetine Unknown Drug Allergy Activ e Wellbutrin Unknown Drug Allergy Active pantoprazole Protonix Unknown Drug Allergy Acti ve gabapentin Neurontin Unknown Drug Allergy Active naproxen Naproxen Unknown Drug Allergy Active RESULTS Component Value Reference Range Notes Pathology Reviewed date:11/01/2023 05:37:06 PM Interpretation: Performing Lab:[facility], [address] [place] [id number] Notes/Report: REASON FOR REFERRAL No Information MEDICATIONS Medication SIG (Take, Route, Frequency, Duration) Notes Start Date End Date Status Alcira 500 MG as directed Orally Active Garlic 100 MG as directed Orally Active Turmeric 1053 MG as directed Orally Active Omeprazole 40 MG TAKE 1 CAPSULE BY MO UTH EVERY MORNING for 30 Active Centennial 3 1000 MG 1 capsule Orally Onc e a day for 30 day(s) Active Magnesium 300 MG 1 capsule with a lizzie l Orally Once a day for 30 day(s) Active Gabapentin 300 MG Oral for 90 Active Vitamin D-3 25 MCG (1000 UT) 1 capsule O rally Once a day for 30 day(s) Active Doxepin HCl 3 MG TAKE 1 TABLET BY LUCA TH AT BEDTIME NEEDED FOR SLEEP Oral for 30 Active Calcium 1 tab Oral for 14 days Active hydroCHLOROthiazide 12.5 MG Oral for 90 Active Vitamin B 12 100 MCG as directed Orally Active Benadryl Allergy 25 MG 1 tablet at bedti me as needed Orally Once a day for 30 day(s) Active Melatonin 10 MG as directed Orally Active Zinc 100 MG 1 tablet Orally Once a day for 30 day(s) Active IMMUNIZATIONS Vaccine Route Administration Date Status Comme nts Influenza Unknown 05/27/2023 Refused SOCIAL HISTORY Tobacco Use: Social History Observation Description Date Details (start date - stop date) Never Smoker NA - NA Sex Assigned At : Social History Observation Description Sex Assigned At Unknown Tobacco Use/Smoking Question Answer Notes Patient is a nonsmoker Alcohol Screen Question Answer Notes Did you have a drink containing alcohol in the p ast year? No Points 0 Interpretation Negative PROBLEMS Problem Type ICD Code Onset Dates Problem Status W/U Status Risk SNOMED Code Notes Problem Gastroesophageal reflux disease with esophagitis (K21.0) Active confirmed 727700935 Problem Pharyngoesophageal dysphagia (R13.14) Active confirmed 75466936 Problem Dysphagia, pharyngoesophageal phase (R13.14) Active confirmed 26262338 Problem Esophageal dysphagia (R13.19) Active confirmed 75110145 Problem Gastroesophageal reflux disease without esophagitis (K21.9) Active confirmed 872304060 Problem Gastro-esophageal reflux disease without esophagitis (K21.9) Active confirmed Gastro-esophag eal reflux disease without esophagitis (834911895) Problem Dysphagia (R13.10) Active confirmed Dys phagia (03566599) Encounters Encounter Location Date Provider Diagnosis [facility] [address] [address] [place], [place] [phone] 09/04/2023 Omero Farah [facility] Outpatient [address] [place], [place] [phone] 10/19/2023 Omero Farah Gastro-esophageal reflux disease without esophagitis K21.9 ; Dysphagia R13.10 and Hiatal hernia K44.9 [facility] [address] [place] [address] 02/10/2024 Omero Farah [facility] [address] [place] [address] 08/21/2023 Omero Farah [facility] [address] [place] [address] 10/27/2023 Omero Farah [facility] [address] [place] [address] 02/09/2024 Omero Farah ASSESSMENTS Encounter Date Diagnosis Assessment Notes Treatment Notes Treatment Clinical Notes 10/19/2023 Gastro-esophageal reflux disease without esophagitis (ICD-10 - K21.9) 10/19/2023 Dysphagia (ICD-10 - R13.10) 10/19/2023 Hiatal hernia (ICD-10 - K44.9) PLAN OF TREATMENT Pending Test Test Name Order Date Esophageal Motility study 07/02/2017 XR BARIUM SWALLOW-ESOPHAGUS 07/02/2017 Future Test Test Name Order Date UPPER GI ENDOSCOPY BALLOOON DILATION OF ESOPH 06/12/2017 UPPER GI ENDOSCOPY BALLOOON DILATION OF ESOPH 05/27/2023 Insurance Providers Payer Name Payer Address Payer Phone Subscriber Number Group Number Insured Name Patient Relationship to Insured Coverage Start Date Coverage End Date [facility] [address] Attn Claims [place] [id number] IAN VAUGHN Self - patient is the insured MEDICAL (GENERAL) HISTORY Medical History History ICD Code Denies ND,DM,CVA,renal disease PTSD/Depression/Anxiety Seeing Dr. Solomon for some type of lung d isease Reports a negative colonoscopy in 2016 EGD's in [address] Blair at [facility]--hiatal hernia, mild reflux, and gastritis EGD 06/2017 with a small to m oderate-sized hiatal hernia--dilated EGJ up to a 20mm balloon. There was no Bose's esophagus and no eosinophilic esophagitis on biopsies Describes an episode of panc reatitis while living in [place] in approximately 2019 Chronic pain for which she is using irineo pentin Surgical History Surgery Date(Month/Year) Spine surgery C6-7 and L4-5 Cholecystectomy 2012 Melanoma excision-on chest wall Knee replacement 05/2020 Knee replacement 05/2022
== END 2024-06-10 14:11 | disposition home or self-care (01) ==
PROVIDERS: PCP Internal Medicine; Visit Provider Psychiatry & Neurology Neurology
DX: I60.9 Nontraumatic subarachnoid hemorrhage, unspecified (principal); R51.9 Headache, unspecified
CPT/HCPCS: 99204; G2211

== ENCOUNTER → 2024-06-10 12:38 | Outpatient (BNVA) | payer OTHER, SELFPAY | PROVIDERS: PCP Internal Medicine; Visit Provider Psychiatry & Neurology Neurology | DX: I60.9 Nontraumatic subarachnoid hemorrhage, unspecified (principal); R51.9 Headache, unspecified | CPT/HCPCS: 99202 ==

== ENCOUNTER 2024-06-14 12:39 | Outpatient (REF) | payer OTHER, SELFPAY ==
--- NOTE | ~2024-06-14 | XR_ITS ---
CLINICAL HISTORY: M25.531 - Pain in right wrist 3 view right hand, 3 view right wrist Comparison: None Findings: There is a distal radial fracture. No significant arthritic change. No erosions. No radiopaque foreign body. IMPRESSION: 1. Distal radial fracture This document has been electronically signed by: Janes Holland MD on 06/16/2024 19:05:00
[2024-06-14 13:08] LABS: MANUAL DIFF FLAG NO
[2024-06-14 13:52] LABS: Basophils Absolute Auto 0.1 X10*3/uL (0.0-0.2); Basophils Percent Auto 1.1 % (0-2); Eosinophils Absolute Auto 0.3 X10*3/uL (0.0-0.4); Eosinophils Percent Auto 4.8 % (0-4); Hematocrit 39.6 % (37.0-47.0); Hemoglobin 12.6 g/dl (12.0-16.0); Imm Gran Abs Auto 0.02 X10*3/uL (0.00-0.03); Imm Gran Pct Auto 0.3 % (0.0-0.4); Lymphocytes Absolute Auto 2.3 X10*3/uL (1.2-4.9); Lymphocytes Percent Auto 34.4 % (20-40); Mean Corpuscular HGB Conc 31.8 g/dl (31.0-35.0); Mean Corpuscular Hemoglobin 29.2 pg (27.0-33.0); Mean Corpuscular Volume 91.9 fL (80.0-98.0); Mean Platelet Volume 9.2 fL (9.4-12.3); Monocytes Absolute Auto 0.4 X10*3/uL (0.1-1.2); Monocytes Percent Auto 6.6 % (2-11); Neutrophils Absolute Auto 3.5 x10*3/uL (2.0-8.3); Neutrophils Percent Auto 52.8 % (45-73); Platelet Count 291 X10*3/uL (160-400); Red Blood Count 4.31 X10*6/uL (4.20-5.50); Red Cell Distribution Width 13.7 % (11.0-16.0); White Blood Count 6.7 X10*3/uL (4.8-10.8)
[2024-06-14 14:19] LABS: Alanine Aminotransferase 9 U/L (0-31); Albumin Level 3.9 g/dL (3.5-5.0); Alkaline Phosphatase 94 U/L (39-117); Anion Gap 9 (12-20); Aspartate Amino Transferase 36 U/L (5-31); Bilirubin Total 0.2 mg/dL (0.0-1.0); Blood Urea Nitrogen 17 mg/dL (9-16); Calcium 9.2 mg/dL (8.4-10.2); Carbon Dioxide 26 mmol/L (22-29); Chloride 111 mmol/L (96-108); Estimated Glomerular Filt Rate > 60; Glucose Random 105 mg/dL (60-115); Potassium 4.4 mmol/L (3.3-5.1); Sodium 142 mmol/L (135-145); Total Protein 6.7 g/dL (6.5-8.0)
--- OUTSIDE RECORDS SUMMARY | 2024-06-14 14:39 | XMS_ITS | Patient Health Record ---
Author Organization [facility] Address [address] [place] [address] Care Team Providers Care Machinist Name Role Phone Joaquin Leonard MD Primary Care Provider Omero Mann [phone] ALLERGIES Allergen (clinical drug ingredient) Drug/Non Drug [...] Pathology Reviewed date:11/01/2023 05:37:06 PM Interpretation: Performing Lab:[facility], [address] [place] [id number] Notes/Report: REASON FOR REFERRAL No Information MEDICATIONS Medication SIG (Take, Route, Frequency, Duration) Notes Start Date End Date Status Alcira 500 MG as directed Orally Active Garlic 100 MG as directed Orally Active Turmeric 1053 MG as directed Orally Active Omeprazole 40 MG TAKE 1 CAPSULE BY MO UTH EVERY MORNING for 30 Active Alto 3 1000 MG 1 capsule Orally Onc [...] reflux disease with esophagitis (K21.0) Active confirmed 832455316 Problem Pharyngoesophageal dysphagia (R13.14) Active confirmed [id number] Problem Dysphagia, pharyngoesophageal phase (R13.14) Active confirmed 98059307 Problem Esophageal dysphagia (R13.19) Active confirmed 35807397 Problem Gastroesophageal reflux disease without esophagitis (K21.9) Active confirmed 462725756 Problem Gastro-esophageal reflux disease without esophagitis (K21.9) Active confirmed Gastro-esophag eal reflux disease without esophagitis (246368316) Problem Dysphagia (R13.10) Active confirmed Dys phagia (23797142) Encounters Encounter Location Date Provider Diagnosis [facility] [address]patient [address] [place], [place] [phone] 09/04/2023 Omero Farah [facility] Outpatient [address], [place] [phone] 10/19/2023 Omero Farah Gastro-esophageal reflux disease without esophagitis K21.9 ; Dysphagia R13.10 and Hiatal hernia K44.9 [facility] [address] [place] [address] 02/10/2024 Omero Farah [facility] [address] [place] [address] 08/21/2023 Omero Farah [facility] [address] [place] [address] 10/27/2023 Omero Farah [facility] [address] [place] [address] 02/09/2024 Omero Farah ASSESSMENTS Encounter Date Diagnosis [...] Insured Coverage Start Date Coverage End Date [facility] [address] Attn Claims MAGAL[place] [id number] IAN VAUGHN Self - patient is the insured MEDICAL (GENERAL) HISTORY Medical History History ICD Code Denies OK,DM,CVA,renal disease PTSD/Depression/Anxiety Seeing Dr. Solomon for some type of lung d isease Reports a negative colonoscopy in 2016 EGD's in [address] Blair at [facility]--hiatal hernia, mild reflux, and gastritis EGD 06/2017 with a small to m oderate-sized hiatal hernia--dilated EGJ up to a 20mm balloon. There was no Bose's esophagus and no eosinophilic esophagitis on biopsies Describes an episode of panc reatitis while living in [place] in approximately 2019 Chronic pain for which she is using irineo pentin Surgical History Surgery Date(Month/Year) Spine surgery C6-7 and L4-5 Cholecystectomy 2012 Melanoma excision-on chest wall Knee replacement 05/2020 Knee replacement 05/2022
--- OUTSIDE RECORDS SUMMARY | 2024-06-14 14:39 | XMS_ITS ---
Author Organization [facility] Address [address] [place] [address] Care Team Providers Care Formal Service Waiter Name Role Phone Joaquin Leonard MD Primary Care Provider Omero Mann Unavailable [phone] REASON FOR VISIT PLease schedule f/u appt with Dr. Farah Encounters Encounter Location Date Provider Diagnosis [facility] [address] [place] [address] 10/27/2023 Omero Farah PLAN OF TREATMENT No Information
--- OUTSIDE RECORDS SUMMARY | 2024-06-14 14:39 | XMS_ITS ---
Author Organization [facility] Address [address] [place] [address] Care Team Providers Care Dispensing And Measuring Optician Name Role Phone Joaquin Leonard MD Primary Care Provider Omero Mann Unavailable [phone] REASON FOR VISIT Patient presents today for dysphagia, gerd Encounters Encounter Location Date Provider Diagnosis [facility] [address] [place] [address] 02/10/2024 Omero Farah PLAN OF TREATMENT No Information
--- OUTSIDE RECORDS SUMMARY | 2024-06-14 14:39 | XMS_ITS ---
Author Organization [facility] Address [address] [place] [address] Care Team Providers Care Manager Basketball Name Role Phone Joaquin Leonard MD Primary Care Provider Omero Mann Unavailable [phone] REASON FOR VISIT cancelled appt Encounters Encounter Location Date Provider Diagnosis [facility] [address] [place] [address] 02/09/2024 Omero Farah PLAN OF TREATMENT No Information
== END 2024-06-14 12:40 | disposition home or self-care (01) ==
LOC: HO.XRAY 12:39
PROVIDERS: PCP Internal Medicine; Visit Provider Internal Medicine
DX: F43.10 Post-traumatic stress disorder, unspecified (principal); F32.A Depression, unspecified; S09.90XS Unspecified injury of head, sequela; M96.1 Postlaminectomy syndrome, not elsewhere classified; M25.531 Pain in right wrist
CPT/HCPCS: 36415; 73110; 73130; 80053; 85025; 90792

== ENCOUNTER 2024-06-14 13:40 | Outpatient (AMB) | payer OTHER, SELFPAY ==
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
== END 2024-06-14 15:33 | disposition home or self-care (01) ==
LOC: HO.HOP 13:40
PROVIDERS: PCP Internal Medicine; Visit Provider Clinical Nurse Specialist Psychiatric/Mental Health
DX: F43.10 Post-traumatic stress disorder, unspecified (principal); F32.A Depression, unspecified; S09.90XA Unspecified injury of head, initial encounter
CPT/HCPCS: 90792

== ENCOUNTER 2024-06-21 08:50 | Outpatient (AMB) | payer OTHER, SELFPAY ==
[2024-06-21 09:05] VITALS: BMI 26.2
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
--- OUTSIDE RECORDS SUMMARY | 2024-06-21 09:16 | XMS_ITS ---
Author Organization [facility] Address [address] [place] [address] Care Team Providers Care Silverware Assembler Name Role Phone Joaquin Leonard MD Primary Care Provider Omero Mann Unavailable [phone] REASON FOR VISIT PLease schedule f/u appt with Dr. Farah Encounters Encounter Location Date Provider Diagnosis [facility] [address] [place] [address] 10/27/2023 Omero Farah PLAN OF TREATMENT No Information
--- OUTSIDE RECORDS SUMMARY | 2024-06-21 09:16 | XMS_ITS ---
Author Organization [facility] Address [address] [place] [address] Care Team Providers Care Direct Service Worker Name Role Phone Joaquin Leonard MD Primary Care Provider Omero Mann Unavailable [phone] REASON FOR VISIT cancelled appt Encounters Encounter Location Date Provider Diagnosis [facility] [address] [place] [address] 02/09/2024 Omero Farah PLAN OF TREATMENT No Information
--- OUTSIDE RECORDS SUMMARY | 2024-06-21 09:16 | XMS_ITS | Patient Health Record ---
Author Organization [facility] Address [address] [place] [address] Care Team Providers Care Continuous Drier Operator Name Role Phone Joaquin Leonard MD Primary Care Provider Omero Mann [phone] ALLERGIES Allergen (clinical drug ingredient) Drug/Non Drug [...] Pathology Reviewed date:11/01/2023 05:37:06 PM Interpretation: Performing Lab:[facility], [address] [place] [id number] Notes/Report: REASON FOR REFERRAL No Information MEDICATIONS Medication SIG (Take, Route, Frequency, Duration) Notes Start Date End Date Status Alcira 500 MG as directed Orally Active Garlic 100 MG as directed Orally Active Turmeric 1053 MG as directed Orally Active Omeprazole 40 MG TAKE 1 CAPSULE BY MO UTH EVERY MORNING for 30 Active [place] 3 1000 MG 1 capsule Orally Onc [...] reflux disease with esophagitis (K21.0) Active confirmed 051571312 Problem Pharyngoesophageal dysphagia (R13.14) Active confirmed 81545149 Problem Dysphagia, pharyngoesophageal phase (R13.14) Active confirmed 83473052 Problem Esophageal dysphagia (R13.19) Active confirmed 22752267 Problem Gastroesophageal reflux disease without esophagitis (K21.9) Active confirmed 777866420 Problem Gastro-esophageal reflux disease without esophagitis (K21.9) Active confirmed Gastro-esophag eal reflux disease without esophagitis (681247611) Problem Dysphagia (R13.10) Active confirmed Dys phagia (96285451) Encounters Encounter Location Date Provider Diagnosis [facility] [address] [place], [place] [phone] 09/04/2023 Omero Farah [facility] [address], [place] [id number] 10/19/2023 Omero Farah Gastro-esophageal reflux disease without esophagitis K21.9 ; Dysphagia R13.10 and Hiatal hernia K44.9 [facility] [address] [place] [address] 02/10/2024 Omero Farah [facility] [address] [place] [address] 08/21/2023 Omero Farah [facility] [address] [place] [address] 10/27/2023 Omero Farah [facility] [address] [place] [address] 02/09/2024 Omero Farah ASSESSMENTS Encounter Date Diagnosis [...] Insured Coverage Start Date Coverage End Date [facility] [address] Attn Claims [place] [id number] IAN VAUGHN Self - patient is the insured MEDICAL (GENERAL) HISTORY Medical History History ICD Code Denies [place],DM,CVA,renal disease PTSD/Depression/Anxiety Seeing Dr. Solomon for some type of lung d isease Reports a negative colonoscopy in 2016 EGD's in [address] Blair at [facility]--hiatal hernia, mild reflux, and gastritis EGD 06/2017 with a small to m oderate-sized hiatal hernia--dilated EGJ up to a 20mm balloon. There was no Bose's esophagus and no eosinophilic esophagitis on biopsies Describes an episode of panc reatitis while living in [place] in approximately 2019 Chronic pain for which she is using irineo pentin Surgical History Surgery Date(Month/Year) Spine surgery C6-7 and L4-5 Cholecystectomy 2012 Melanoma excision-on chest wall Knee replacement 05/2020 Knee replacement 05/2022
== END 2024-06-21 10:05 | disposition home or self-care (01) ==
PROVIDERS: PCP Internal Medicine; Visit Provider Orthopaedic Surgery
DX: M65.4 Radial styloid tenosynovitis [de Quervain] (principal)
CPT/HCPCS: 20550; 99203

== ENCOUNTER 2024-06-21 12:23 | Outpatient (REF) | payer OTHER, SELFPAY ==
--- NOTE | ~2024-06-21 | XR_ITS ---
CLINICAL HISTORY: M25.531 - Pain in right wrist 3 view right wrist Comparison: CR - XR HAND WRIST RT - 06/14/24 13:29 EST Findings: There is an impacted distal radial fracture with early changes of healing including slight increased lucency of the fracture line which includes intra-articular extension. No angulation or displacement. Nondisplaced distal ulnar fracture. Joint space loss of the base of the thumb with subchondral sclerosis. No radiopaque foreign body. IMPRESSION: 1. Nondisplaced distal radial and ulnar fractures with early changes of healing. This document has been electronically signed by: Venice Neri MD on 06/22/2024 05:43:28
== END 2024-06-21 12:24 | disposition home or self-care (01) ==
LOC: HO.HOSX 12:23
PROVIDERS: Visit Provider Orthopaedic Surgery
DX: M25.531 Pain in right wrist (principal); M65.4 Radial styloid tenosynovitis [de Quervain]; S52.601D Unspecified fracture of lower end of right ulna, subsequent encounter for closed fracture with routine healing; S52.571D Other intraarticular fracture of lower end of right radius, subsequent encounter for closed fracture with routine healing
CPT/HCPCS: 20550; 73110; 99202; J1100; J2003

== ENCOUNTER 2024-07-12 14:00 | Outpatient (AMB) | payer OTHER, SELFPAY ==
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
== END 2024-07-12 14:59 | disposition home or self-care (01) ==
LOC: HO.HOP 14:00
PROVIDERS: PCP Internal Medicine; Visit Provider Clinical Nurse Specialist Psychiatric/Mental Health
DX: F32.1 Major depressive disorder, single episode, moderate (principal); S09.90XS Unspecified injury of head, sequela; R51.9 Headache, unspecified; F43.11 Post-traumatic stress disorder, acute
CPT/HCPCS: 90833; 99214

== ENCOUNTER → 2024-07-12 14:00 | Outpatient (BNVA) | payer OTHER, SELFPAY | PROVIDERS: PCP Internal Medicine; Visit Provider Clinical Nurse Specialist Psychiatric/Mental Health | DX: R51.9 Headache, unspecified (principal); F43.10 Post-traumatic stress disorder, unspecified; F32.A Depression, unspecified; S09.90XA Unspecified injury of head, initial encounter; X58.XXXA Exposure to other specified factors, initial encounter; Y93.9 Activity, unspecified; Y92.9 Unspecified place or not applicable; Y99.9 Unspecified external cause status; Z71.89 Other specified counseling | CPT/HCPCS: 99212 ==

== ENCOUNTER 2024-07-22 12:28 | Outpatient (REF) | payer OTHER, SELFPAY ==
--- NOTE | ~2024-07-22 | CT_ITS ---
CLINICAL HISTORY: I60.9 - Nontraumatic subarachnoid hemorrhage, unspecified CT head without contrast Comparison: CT head 05/26/2017 Findings: No intra-axial mass, midline shift, hydrocephalus, or acute hemorrhage. There is mild progression old small-vessel, ischemic changes. There small less than 1 cm multiple periventricular and subcortical white matter, basal ganglia, internal and external capsule hypodensities. The visualized paranasal sinuses and mastoid air cells are normal. Bilateral lens replacement surgery, otherwise orbits are unremarkable. No skull fracture. IMPRESSION: No acute intracranial findings. Mild progression old small-vessel ischemic changes This document has been electronically signed by: Omero Hoffmann MD on 07/23/2024 08:25:16
--- OUTSIDE RECORDS SUMMARY | 2024-07-22 12:54 | XMS_ITS ---
Author Organization [facility] Address [address] [place] [address] Care Team Providers Care Catalyst Operator Chief Name Role Phone Joaquin Leonard MD Primary Care Provider Omero Mann Unavailable [phone] REASON FOR VISIT cancelled appt Encounters Encounter Location Date Provider Diagnosis [facility] [address] [place] [address] 02/09/2024 Omero Farah PLAN OF TREATMENT No Information
--- OUTSIDE RECORDS SUMMARY | 2024-07-22 12:54 | XMS_ITS ---
Author Organization [facility] Address [address] [place] [address] Care Team Providers Care Data Software Engineer Name Role Phone Joaquin Leonard MD Primary Care Provider Omero Mann Unavailable [phone] REASON FOR VISIT Patient presents today for dysphagia, gerd Encounters Encounter Location Date Provider Diagnosis [facility] [address] [place] [address] 02/10/2024 Omero Farah PLAN OF TREATMENT No Information
--- OUTSIDE RECORDS SUMMARY | 2024-07-22 12:55 | XMS_ITS | Patient Health Record ---
Author Organization [facility] Address [address] [place] [address] Care Team Providers Care Senior Behavioral Scientist Name Role Phone Alessio CASTAÑEDA, Pricila Primary Care Provider Vaughn Woodward Unavailable [phone] Allergies Allergen (clinical drug ingredient) Drug/Non Drug Allergy documented on EMR Reaction Allergy Type Onset Date Status Flexeril Unknown Drug Allergy Active Naproxen Unknown Drug Allergy Active codeine Codeine Unknown Drug Allergy Active sulfamethoxazole / trimethoprim Bactrim swelling Drug Allergy Active bupropion swelling Drug Allergy Active meloxicam meloxicam irregular heart rate Drug Allergy Active Tramadol Unknown Drug Allergy Active Reason For Referral No Information Medications Medication SIG (Take, Route, Fr equency, Duration) Notes Start Date End Date Status Zinc Active pravastatin 20 mg 1 tab(s) orally once a day for 30 day(s) Active Magnesium qd Active Calcium unknown 1 tab po qd Ac tive clonazePAM 0.5 mg 1 tab(s) orally 3 ti mes a day for 30 day(s) Active Omeprazole 20 mg 1 cap(s) orally once a day for 30 day(s) Active FLUoxetine 40 mg 1 cap(s) orally once a day for 30 day(s) Active Hair, Skin, Nails 5 mg 1 cap(s) orally o nce a day for 30 day(s) Active B12 injection 1000 A ctive COQ10 100 mg 1 tab qd Active melatonin 10 mg 1 cap(s) orally PRN Active Fish Oil 500 mg 2 cap(s) orally 2 times a day Active Aspirin Low Dose 81 mg 1 tab(s) orally o nce a day for 30 day(s) Active mirtazapine 15 mg 1 tab(s) orally prn Active Social History Tobacco Use: Social History Observation Description Date Details (start date - stop date) Never Smoker NA - NA smoking Question Answer Notes Tobacco use: never smoker Problems Problem Type SNOMED Code ICD Code Onset Dates Problem Status W/U Status Risk Notes Problem Gastritis (8890618) Gastritis (K29.70) Active confirmed Problem Dysphagia (90764005) Dysphagia (R13.10) Active confirmed Mrs. Alfredo has long standing history of dysphagia in the pharyngeal area to both liquids and solids and associated coughing. She has had several EGDs that noted difficulty passing scope through UES but no source noted. No improvement with dilation. She has had neck surgery in the past that may be source. I recommend EGD with possible esophageal dilation. The risks, benefits, alternatives were discussed including risks of IV sedation, bleeding, perforation and aspiration. The patient wishes to proceed. If negative will consider esophageal manometry and speech therapy evaluation. Problem Esophageal stricture (51265252) Esophageal stricture (K22.2) Active confirmed Plan Of Treatment Pending Test Test Name Order Date EGD 03/15/2019 Insurance Providers Payer Name Payer Address Payer Phone Subscriber Number Group Number Insured Name Patient Relationship to Insured Coverage Start Date Coverage End Date [employer] [facility] [address] [address] [place] [address] [id number] NONE Selena Alfredo Self - patient is the insured [employer] [facility] [address] [address] [place] [address] [id number] Selena Alfredo Self - patient is the insured Medical (General) History Medical History History ICD Code Anxiety ( PTSD) with Panic Attacks Gastric ulcer Hiatal hernia Pancreatitis in 2017 Vitamin B12 deficiency Vitamin D deficiency Cataracts - bilateral Thyroid nodule Surgical History Surgery Date(Month/Year) Catarct surgery 02-15-2019 Cholecystectomy 2014
--- OUTSIDE RECORDS SUMMARY | 2024-07-22 12:55 | XMS_ITS | Patient Health Record ---
Author Organization [facility] Address [address] [place] [address] Care Team Providers Care Insurance Coder Name Role Phone Joaquin Leonard MD Primary Care Provider Omero Mann [phone] ALLERGIES Allergen (clinical drug ingredient) Drug/Non Drug [...] Pathology Reviewed date:11/01/2023 05:37:06 PM Interpretation: Performing Lab:[facility], [address] [place] [phone] Notes/Report: REASON FOR REFERRAL No Information MEDICATIONS Medication SIG (Take, Route, Frequency, Duration) Notes Start Date End Date Status Alcira 500 MG as directed Orally Active Garlic 100 MG as directed Orally Active Turmeric 1053 MG as directed Orally Active Omeprazole 40 MG TAKE 1 CAPSULE BY MO UTH EVERY MORNING for [address] [place] 3 1000 MG 1 capsule Orally Onc [...] reflux disease with esophagitis (K21.0) Active confirmed 200713637 Problem Pharyngoesophageal dysphagia (R13.14) Active confirmed 50836636 Problem Dysphagia, pharyngoesophageal phase (R13.14) Active confirmed 55500771 Problem Esophageal dysphagia (R13.19) Active confirmed 97875556 Problem Gastroesophageal reflux disease without esophagitis (K21.9) Active confirmed 057049027 Problem Gastro-esophageal reflux disease without esophagitis (K21.9) Active confirmed Gastro-esophag eal reflux disease without esophagitis (432605661) Problem Dysphagia (R13.10) Active confirmed Dys phagia (93057930) Encounters Encounter Location Date Provider Diagnosis [facility] [address], [place] [phone] 09/04/2023 Omero Farah [facility] [address], [place] [phone] 10/19/2023 Omero Farah Gastro-esophageal reflux disease without esophagitis K21.9 ; Dysphagia R13.10 and Hiatal hernia K44.9 [facility] [address] [place] [address] 02/10/2024 Omero Farah [facility] [address] [place] [address] 08/21/2023 Omero Farah [facility] [address] [place] [address] 10/27/2023 Omero Farah [facility] [address] [place] [address] 02/09/2024 Omero Farah ASSESSMENTS Encounter Date Diagnosis [...] Insured Coverage Start Date Coverage End Date [facility] [address] Attn Claims [place] [id number] IAN VAUGHN Self - patient is the insured MEDICAL (GENERAL) HISTORY Medical History History ICD Code Denies [place],DM,CVA,renal disease PTSD/Depression/Anxiety Seeing Dr. Solomon for some type of lung d isease Reports a negative colonoscopy in 2016 EGD's in [address] Blair at [facility]--hiatal hernia, mild reflux, and gastritis EGD 06/2017 with a small to m oderate-sized hiatal hernia--dilated EGJ up to a 20mm balloon. There was no Bose's esophagus and no eosinophilic esophagitis on biopsies Describes an episode of panc reatitis while living in [place] in approximately 2019 Chronic pain for which she is using irineo pentin Surgical History Surgery Date(Month/Year) Spine surgery C6-7 and L4-5 Cholecystectomy 2012 Melanoma excision-on chest wall Knee replacement 05/2020 Knee replacement 05/2022
--- OUTSIDE RECORDS SUMMARY | 2024-07-22 12:55 | XMS_ITS ---
Author Organization [facility] Address [address] [place] [address] Care Team Providers Care Budget Officer Name Role Phone Joaquin Leonard MD Primary Care Provider Omero Mann Unavailable [phone] REASON FOR VISIT PLease schedule f/u appt with Dr. Farah Encounters Encounter Location Date Provider Diagnosis [facility] [address] [place] [address] 10/27/2023 Omero Farah PLAN OF TREATMENT No Information
== END 2024-07-22 12:29 | disposition home or self-care (01) ==
LOC: HO.CT 12:28
PROVIDERS: PCP Internal Medicine; Visit Provider Psychiatry & Neurology Neurology
DX: I60.9 Nontraumatic subarachnoid hemorrhage, unspecified (principal)
CPT/HCPCS: 70450

== ENCOUNTER → 2024-07-22 12:29 | Outpatient (BNV) | payer OTHER, SELFPAY | PROVIDERS: PCP Internal Medicine; Visit Provider Radiology Diagnostic Radiology | DX: I60.9 Nontraumatic subarachnoid hemorrhage, unspecified (principal) | CPT/HCPCS: 70450 ==

== ENCOUNTER 2024-08-09 10:59 | Outpatient (AMB) | payer OTHER, SELFPAY ==
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
--- OUTSIDE RECORDS SUMMARY | 2024-08-09 13:40 | XMS_ITS ---
Author Organization [facility] Address [address] [place] [address] Care Team Providers Care Lockstitch Lining Maker Name Role Phone Joaquin Leonard MD Primary Care Provider Omero Mann Unavailable [phone] REASON FOR VISIT cancelled appt Encounters Encounter Location Date Provider Diagnosis [facility] [address] [place] [address] 02/09/2024 Omero Farah PLAN OF TREATMENT No Information
--- OUTSIDE RECORDS SUMMARY | 2024-08-09 13:40 | XMS_ITS ---
Author Organization [facility] Address [address] [place] [phone] Care Team Providers Care Tipple Repairer Name Role Phone Joaquin Leonard MD Primary Care Provider Omero Mann Unavailable [phone] REASON FOR VISIT Patient presents today for dysphagia, gerd Encounters Encounter Location Date Provider Diagnosis [facility] [address] [place] [phone] 02/10/2024 Omero Farah PLAN OF TREATMENT No Information
--- OUTSIDE RECORDS SUMMARY | 2024-08-09 13:41 | XMS_ITS | Patient Health Record ---
Author Organization [facility] Address [address] [place] [address] Care Team Providers Care Ic Design Manager Name Role Phone Joaquin Leonard MD Primary Care Provider Omero Mann [phone] ALLERGIES Allergen (clinical drug ingredient) Drug/Non Drug Allergy documented on EMR Reaction Allergy Type Onset Date Status pravastatin Pravastatin Unknown Drug Allergy Act darius Non-steroidal anti-inflammatory agent (FN) NSAIDs Unknown Drug Allergy Active gabapentin Gabapentin Unknown Drug Allergy Activ e fluoxetine Fluoxetine Unknown Drug Allergy Activ e Wellbutrin Unknown Drug Allergy Active pantoprazole Protonix Unknown Drug Allergy Acti ve gabapentin Neurontin Unknown Drug Allergy Active naproxen Naproxen Unknown Drug Allergy Active pregabalin Lyrica Unknown Drug Allergy Active Flexeril Unknown Drug Allergy Active valproate Divalproex Sodium Unknown Drug Allergy Active hydromorphone Dilaudid Unknown Drug Allergy Act darius Bactrim Unknown Drug Allergy Active RESULTS Component Value Reference Range Notes Pathology Reviewed date:11/01/2023 05:37:06 PM Interpretation: Performing Lab:[facility], [address] [place] [id number] Notes/Report: REASON FOR REFERRAL No Information MEDICATIONS Medication SIG (Take, Route, Frequency, Duration) Notes Start Date End Date Status Alcira 500 MG as directed Orally Active Garlic 100 MG as directed Orally Active Turmeric 1053 MG as directed Orally Active Omeprazole 40 MG TAKE 1 CAPSULE BY MO UTH EVERY MORNING for 30 Active [place] 3 1000 MG 1 capsule Orally Onc [...] W/U Status Risk SNOMED Code Notes Problem Gastro-esophageal reflux disease without esophagitis (K21.9) Active confirmed Gastro-esophag eal reflux disease without esophagitis (607737278) Problem Dysphagia, pharyngoesophageal phase (R13.14) Active confirmed 09153439 Problem Dysphagia (R13.10) Active confirmed Dys phagia (06360320) Problem Gastroesophageal reflux disease with esophagitis (K21.0) Active confirmed 110259649 Problem Gastroesophageal reflux disease without esophagitis (K21.9) Active confirmed 188437644 Problem Pharyngoesophageal dysphagia (R13.14) Active confirmed 81371084 Problem Esophageal dysphagia (R13.19) Active confirmed [id number] Encounters Encounter Location Date Provider Diagnosis [facility] Outpatient [address] [place] [id number] 09/04/2023 Omero Farah [facility] Outpatient [address] [place] [id number] 10/19/2023 Omero Farah Gastro-esophageal reflux disease without esophagitis K21.9 ; Dysphagia R13.10 and Hiatal hernia K44.9 [facility] [address] [place] [phone] 02/10/2024 Omero Farah [facility] [address] [place] [phone] 08/21/2023 Omero Farah [facility] [address] [place] [address] 10/27/2023 Omero Farah [facility] [address] [place] [address] 02/09/2024 Omero Farah ASSESSMENTS Encounter Date Diagnosis [...] Insured Coverage Start Date Coverage End Date [facility] [address] Attn Claims [place] [id number] IAN VAUGHN Self - patient is the insured MEDICAL (GENERAL) HISTORY Medical History History ICD Code Denies MD,DM,CVA,renal disease PTSD/Depression/Anxiety Seeing Dr. Solomon for some type of lung d isease Reports a negative colonoscopy in 2016 EGD's in [address] Blair at [facility]--hiatal hernia, mild reflux, and gastritis EGD 06/2017 with a small to m oderate-sized hiatal hernia--dilated EGJ up to a 20mm balloon. There was no Bose's esophagus and no eosinophilic esophagitis on biopsies Describes an episode of panc reatitis while living in [place] in approximately 2019 Chronic pain for which she is using irineo pentin Surgical History Surgery Date(Month/Year) Spine surgery C6-7 and L4-5 Cholecystectomy 2012 Melanoma excision-on chest wall Knee replacement 05/2020 Knee replacement 05/2022
--- OUTSIDE RECORDS SUMMARY | 2024-08-09 13:41 | XMS_ITS | Patient Health Record ---
Author Organization [facility] Address [address] [place] [address] Care Team Providers Care Plastic Fabricator Name Role Phone Alessio CASTAÑEDA, Pricila Primary Care Provider Vaughn Woodward Unavailable [phone] Allergies Allergen (clinical drug ingredient) Drug/Non Drug [...] Status W/U Status Risk Notes Problem Gastritis (1914917) Gastritis (K29.70) Active confirmed Problem Dysphagia (30591174) Dysphagia (R13.10) Active confirmed Mrs. Alfredo has [...] and speech therapy evaluation. Problem Esophageal stricture (80538552) Esophageal stricture (K22.2) Active confirmed Plan Of Treatment Pending Test Test Name Order Date EGD 03/15/2019 Insurance Providers Payer Name Payer Address Payer Phone Subscriber Number Group Number Insured Name Patient Relationship to Insured Coverage Start Date Coverage End Date [employer] [facility] [address] [address] [place] [address] [id number] NONE Selena Alfredo Self - patient is the insured [address] [facility] Plus [address] [address] [place] [address] [id number] Selena Alfredo Self - patient is the insured Medical (General) History Medical History History ICD Code Anxiety ( PTSD) with Panic Attacks Gastric ulcer Hiatal hernia Pancreatitis in 2017 Vitamin B12 deficiency Vitamin D deficiency Cataracts - bilateral Thyroid nodule Surgical History Surgery Date(Month/Year) Catarct surgery 02-15-2019 Cholecystectomy 2014
--- OUTSIDE RECORDS SUMMARY | 2024-08-09 13:41 | XMS_ITS ---
Author Organization [facility] Address [address] [place] [address] Care Team Providers Care Employee Development Specialist Name Role Phone Joaquin Leonard MD Primary Care Provider Omero Mann Unavailable [phone] REASON FOR VISIT PLease schedule f/u appt with Dr. Farah Encounters Encounter Location Date Provider Diagnosis [facility] [address] [place] [address] 10/27/2023 Omero Farah PLAN OF TREATMENT No Information
== END 2024-08-09 11:41 | disposition home or self-care (01) ==
LOC: HO.HOP 10:59
PROVIDERS: PCP Internal Medicine; Visit Provider Clinical Nurse Specialist Psychiatric/Mental Health
DX: F32.A Depression, unspecified (principal); S09.90XA Unspecified injury of head, initial encounter; F43.10 Post-traumatic stress disorder, unspecified; F51.05 Insomnia due to other mental disorder; F40.9 Phobic anxiety disorder, unspecified
CPT/HCPCS: 99214

== ENCOUNTER → 2024-08-09 10:59 | Outpatient (BNVA) | payer OTHER, SELFPAY | PROVIDERS: PCP Internal Medicine; Visit Provider Clinical Nurse Specialist Psychiatric/Mental Health | DX: F32.A Depression, unspecified (principal); F43.10 Post-traumatic stress disorder, unspecified; F51.05 Insomnia due to other mental disorder; F40.9 Phobic anxiety disorder, unspecified; S09.90XD Unspecified injury of head, subsequent encounter | CPT/HCPCS: 99212 ==

== ENCOUNTER 2024-08-29 12:32 | Outpatient (AMB) | payer OTHER, SELFPAY ==
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
[2024-08-29 13:01] VITALS: BP 182/92; PULSE 64; TEMP 36.1; O2SAT 99; BMI 27.1
== END 2024-08-29 13:40 | disposition home or self-care (01) ==
LOC: HO.HMCH 12:33
PROVIDERS: PCP Internal Medicine; Visit Provider Internal Medicine
DX: S32.599A Other specified fracture of unspecified pubis, initial encounter for closed fracture (principal); I60.9 Nontraumatic subarachnoid hemorrhage, unspecified; S52.021A Displaced fracture of olecranon process without intraarticular extension of right ulna, initial encounter for closed fracture; S82.102A Unspecified fracture of upper end of left tibia, initial encounter for closed fracture; S02.2XXD Fracture of nasal bones, subsequent encounter for fracture with routine healing; V89.2XXA Person injured in unspecified motor-vehicle accident, traffic, initial encounter

== ENCOUNTER → 2024-08-29 12:32 | Outpatient (BNVA) | payer OTHER, SELFPAY | PROVIDERS: PCP Internal Medicine; Visit Provider Internal Medicine | DX: S52.021D Displaced fracture of olecranon process without intraarticular extension of right ulna, subsequent encounter for closed fracture with routine healing (principal); S32.599D Other specified fracture of unspecified pubis, subsequent encounter for fracture with routine healing; S82.102D Unspecified fracture of upper end of left tibia, subsequent encounter for closed fracture with routine healing; S02.2XXD Fracture of nasal bones, subsequent encounter for fracture with routine healing; V89.2XXD Person injured in unspecified motor-vehicle accident, traffic, subsequent encounter | CPT/HCPCS: 96127; 99212 ==

== ENCOUNTER 2024-09-12 10:49 | Outpatient (AMB) | payer OTHER, SELFPAY ==
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
--- OUTSIDE RECORDS SUMMARY | 2024-09-12 12:53 | XMS_ITS ---
Author Organization [facility] Address [address] [place] [address] Care Team Providers Care Hub Associate Name Role Phone Joaquin Leonard MD Primary Care Provider Omero Mann Unavailable [phone] REASON FOR VISIT cancelled appt Encounters Encounter Location Date Provider Diagnosis [facility] [address] [place] [phone] 02/09/2024 Omero Farah Plan Of Treatment No Information Progress Notes * IAN VAUGHN ADOB: [birth year] (78 yo F)Acc No.[id number]:02/09/2024 Patient:?MARYRAIN IAN Orr :1945???Age:78 Y???Sex:Female Address:[address] [place] [address] [address], [place], [address] * true * Date:? Generated for Michelle louise/Jv/eTransmitting on:?09/12/2024 12:52 PM EDT
--- OUTSIDE RECORDS SUMMARY | 2024-09-12 12:53 | XMS_ITS ---
Author Organization [facility] Address [address] [place] [phone] Care Team Providers Care Grades 1 Thru 6 Visiting Teacher Name Role Phone Joaquin Leonard MD Primary Care Provider Omero Mann Unavailable [phone] REASON FOR VISIT Patient presents today for dysphagia, gerd Encounters Encounter Location Date Provider Diagnosis [facility] [address] [place] [phone] 02/10/2024 Omero Farah Plan Of Treatment No Information Progress Notes * IAN VAUGHN ADOB: [birth year] (78 yo F)Acc No.[id number]:02/10/2024 Progress Notes Patient:?IAN VAUGHN Provider:?Omero Farah MD :1945???Age:78 Y???Sex:Female D ate:02/10/2024 Address:[address] [place] [address] [address], [place], [place] Pcp:Joaquin Leonard MD Subjective: * Chief Complaints: * ???1. Patient presents today for dysphagia, gerd. * Medical History:? Objective: * Vitals:? Assessment: Plan: * Treatment: * * The named appointment provid er may or may not be the originator of this progress note, and it is not deemed complete until electronically signed by the appointment provider. Sign off status: Pending * Provider:?Omero Farah MD Date:? 024 Generated for Valeriai aspen/Fabarrong/eTransmitting on:?09/12/2024 12:52 PM EDT
--- OUTSIDE RECORDS SUMMARY | 2024-09-12 12:53 | XMS_ITS ---
Author Organization [facility] Address [address] [place] [address] Care Team Providers Care Special Class Welder Name Role Phone Joaquin Leonard MD Primary Care Provider Omero Mann [phone] REASON FOR VISIT PLease schedule f/u appt with Dr. Farah Encounters Encounter Location Date Provider Diagnosis [facility] [address] [place] [address] 10/27/2023 Omero Farah Plan Of Treatment No Information Progress Notes * MARYRAIN IAN ADOB: [birth year] (77 yo F)Acc No.[id number]:10/27/2023 Patient:?IAN VAUGHN :1945???Age:77 Y???Sex:Female Address:[address] [place] [address] [address] , [place], [address] * true * Date:? Generated for Michelle louise/Jv/eTransmitting on:?09/12/2024 12:53 PM EDT
--- OUTSIDE RECORDS SUMMARY | 2024-09-12 12:53 | XMS_ITS | Patient Health Record ---
Author Organization [facility] Address [address] [place] [address] Care Team Providers Care Comber Setter Name Role Phone Joaquin Leonard MD Primary Care Provider Omero aMnn [phone] Allergies Allergen (clinical drug ingredient) Drug/Non Drug [...] Active naproxen Naproxen Unknown Drug Allergy Active Results Component Value Reference Range Notes Pathology Reviewed date:11/01/2023 05:37:06 PM Interpretation: Performing Lab:[facility], [address] [place] [id number] Notes/Report: Name: Ian Alfredo Age/Sex: 77/F : 1945 Unit#: [id number] Attend Dr: Omero Farah Re10/19/23 Status : [facility] Location: [facility] Disch: SPEC : [id number] RECD : 10/19/23-1346 [facility] NUM: [id number] SAGE: 10/19/23-[address] [facility] [address]: Omero Farah ENTERED: 10/19/23- 04 SP TYPE: Surgical OTHR DR: Joaquin Leonard MD ORDERED: HE Stain/6, Gross Micro L4/2, Special st. 2, AB/PAS Diagnosis A. EG junction, 34 cm, biopsy: - Cardiofundic-type mucosa with moderate chronic active inflammation; no intestinal metaplasia seen. - Active esophagitis (maximum eosinophil count 2 per high powered field). B. Esophagus, 20-25 cm, biopsy: Squamous epithelium within normal limits; no inflammation seen; n egative for eosinophilic esophagitis. Clinical History Pre-Op Dx: GERD Post-Op Dx: Hiatal hernia, reflux Microscopic Description A, B. Microscopic se ctions examined. No metaplastic changes are seen, supported by AB/PAS stains (A) Material Received A. EG junction at 34 cm B. Esophagus 20 - 25, r/o EOE Gross Description Received in 2 parts. A. Received in forma christine labeled ?EG junction at 34 cm? are 3 fragments of translucent dillard white soft tissue ra nging from 0.4-0.6 cm in greatest dimension which are wrapped in lens paper and entirely s ubmitted for microscopic examination, 3 pieces in cassette A. B. Received in forma christine labeled ?esophagus 20-25? are 3 fragments of translucent, pink white soft tissue ranging from 0.4-0.5 cm in greatest dimension which are wrapped in lens paper and entirely submitt ed for microscopic examination, 3 pieces in cassette B. [facility] Special studies orde red and performed: AB/PAS stains on A CONTINUED ON NEXT PAGE Name: Ian Alfredo Age/Sex: 77/F : 1945 Unit#: [id number] Attend Dr: Omero Farah Re10/19/23 Status : [facility] Location: [facility] Disch: SPEC : [id number] REC STATUS: DARIELA GUZMÁNCarmella NUM: [id number] SAGE: 10/19/23-[address] [facility] [address]: Omero Farah ENTERED: 10/19/23-14 04 SP TYPE: Surgical OTHR DR: Joaquin Leonard MD ORDERED: HE Stain/6, Gross Micro L4/2, Special st. 2, AB/PAS Copies To: Joaquin Leonard MD [address] [place] [address] [address] [place] [address] Omero Farah [address] [place] [address] [id number] [place] [id number] Signed (si gnature on file) Carlos Martinez MD 10/20/23 1438 END OF REPORT Reason For Referral No Information Medications Medication SIG (Take, Route, Frequency, Duration) Notes Start Date End Date Status Alcira 500 MG as directed Orally Active Garlic 100 MG as directed Orally Active Turmeric 1053 MG as directed Orally Active Omeprazole 40 MG TAKE 1 CAPSULE BY MO UTH EVERY MORNING for 30 Active Bessie 3 1000 MG 1 capsule Orally Onc [...] Once a day for 30 day(s) Active Immunizations Vaccine Route Administration Date Status Comme nts Influenza Unknown 05/27/2023 Refused Social History Tobacco Use: Social History Observation Description Date Details (start date - stop date) Never Smoker NA - NA Tobacco Use/Smoking Question Answer Notes Patient is a nonsmoker Alcohol Screen Question Answer Notes Did you have a drink containing alcohol in the p ast year? No Points 0 Interpretation Negative Section Notes: Nonsmoker; no sig alcohol Nonsmoker; no sig alcohol Problems Problem Type SNOMED Code ICD Code Onset Dates Problem Status W/U Status Risk Notes Problem Gastro-esophag eal reflux disease without esophagitis (361369409) Gastro-esophageal reflux disease without esophagitis (K21.9) Active confirmed Problem 97958026 Dysphagia, pharyngoesophageal phase (R13.14) Active confirmed Problem Dysphagia (14512439) Dysphagia (R13.10) Active confirmed Problem 199201402 Gastroesophageal reflux disease with esophagitis (K21.0) Active confirmed Problem 400198145 Gastroesophageal reflux disease without esophagitis (K21.9) Active confirmed Problem 37544939 Pharyngoesophage al dysphagia (R13.14) Active confirmed Problem 89469360 Esophageal dysph agia (R13.19) Active confirmed Encounters Encounter Location Date Provider Diagnosis [facility] Outpatient [address] [place] [phone] 10/19/2023 Omero Farah Gastro-esophageal reflux disease without esophagitis K21.9 ; Dysphagia R13.10 and Hiatal hernia K44.9 [facility] [address] [place] [phone] 10/27/2023 Omero Farah [facility] [address] [place] [phone] 02/09/2024 Omero Farah Assessments Encounter Date Diagnosis (ICD Code) Assessment Notes Treatment Notes Treatment Clinical Notes Section Notes 10/19/2023 Gastro-esophagea l reflux disease without esophagitis (ICD-10 - K21.9) 10/19/2023 Dysphagia (ICD-10 - R13.10) 10/19/2023 Hiatal hernia (ICD-10 - K44.9) Plan Of Treatment Pending Test Test Name Order Date Esophageal Motility study 07/02/2017 XR BARIUM SWALLOW-ESOPHAGUS 07/02/2017 Future Test Test Name Order Date UPPER GI ENDOSCOPY BALLOOON DILATION OF ESOPH 06/12/2017 UPPER GI ENDOSCOPY BALLOOON DILATION OF ESOPH 05/27/2023 Insurance Providers Payer Name Payer Address Payer Phone Subscriber Number Group Number Insured Name Patient Relationship to Insured Coverage Start Date Coverage End Date [facility] [address] Attn Claims [place] [id number] IAN ALFREDO Self - patient is the insured Medical (General) History Medical History History ICD Code Denies CT,DM,CVA,renal disease PTSD/Depression/Anxiety Seeing Dr. Solomon for some type of lung d radhamesnicole Reports a negative colonoscopy in 2016 EGD's in [address] Blair at [facility]--hiatal hernia, mild reflux, and gastritis EGD 06/2017 with a small to m oderate-sized hiatal hernia--dilated EGJ up to a 20mm balloon. There was no Bose's esophagus and no eosinophilic esophagitis on biopsies Describes an episode of panc reatitis while living in [place] in approximately 2019 Chronic pain for which she is using irineo pentin Surgical History Surgery Date(Month/Year) Spine surgery C6-7 and L4-5 Cholecystectomy 2012 Melanoma excision-on chest wall Knee replacement 05/2020 Knee replacement 05/2022
--- OUTSIDE RECORDS SUMMARY | 2024-09-12 12:53 | XMS_ITS | Patient Health Record ---
Author Organization [facility] Address [address] [place] [address] Care Team Providers Care Wire Rope Sales Representative Name Role Phone Alessio CASTAÑEDA, Pricila Primary Care Provider Vaughn Woodward Unavailable [phone] Allergies Allergen (clinical drug ingredient) Drug/Non Drug [...] Status W/U Status Risk Notes Problem Gastritis (5014123) Gastritis (K29.70) Active confirmed Problem Dysphagia (29854353) Dysphagia (R13.10) Active confirmed Mrs. Alfredo has [...] and speech therapy evaluation. Problem Esophageal stricture (16470629) Esophageal stricture (K22.2) Active confirmed Plan Of Treatment Pending Test Test Name Order Date EGD 03/15/2019 Insurance Providers Payer Name Payer Address Payer Phone Subscriber Number Group Number Insured Name Patient Relationship to Insured Coverage Start Date Coverage End Date [employer] [facility] [address] [address] [place] [address] [id number] Selena Alfredo Self - patient is the insured [employer] [facility] Plus [address] [address] [place] [address] [id number] Selena Alfredo Self - patient is the insured Medical (General) History Medical History History ICD Code Anxiety ( PTSD) with Panic Attacks Gastric ulcer Hiatal hernia Pancreatitis in 2017 Vitamin B12 deficiency Vitamin D deficiency Cataracts - bilateral Thyroid nodule Surgical History Surgery Date(Month/Year) Catarct surgery 02-15-2019 Cholecystectomy 2014
== END 2024-09-12 11:36 | disposition home or self-care (01) ==
LOC: HO.HOP 10:49
PROVIDERS: PCP Internal Medicine; Visit Provider Clinical Nurse Specialist Psychiatric/Mental Health
DX: F51.05 Insomnia due to other mental disorder (principal); F40.9 Phobic anxiety disorder, unspecified; F32.A Depression, unspecified; S09.90XA Unspecified injury of head, initial encounter; F43.10 Post-traumatic stress disorder, unspecified
CPT/HCPCS: 99214

== ENCOUNTER → 2024-09-12 10:49 | Outpatient (BNVA) | payer OTHER, SELFPAY | PROVIDERS: PCP Internal Medicine; Visit Provider Clinical Nurse Specialist Psychiatric/Mental Health | DX: F32.A Depression, unspecified (principal); F51.05 Insomnia due to other mental disorder; F40.9 Phobic anxiety disorder, unspecified; F43.10 Post-traumatic stress disorder, unspecified; S09.90XA Unspecified injury of head, initial encounter; X58.XXXA Exposure to other specified factors, initial encounter; Y93.9 Activity, unspecified; Y92.9 Unspecified place or not applicable; Y99.9 Unspecified external cause status; Z71.89 Other specified counseling | CPT/HCPCS: 99212 ==

== ENCOUNTER 2025-01-16 10:30 | Inpatient (IN) | payer OTHER, SELFPAY ==
--- OUTSIDE RECORDS SUMMARY | 2023-09-04 06:30 | XMS_ITS ---
Author Organization [facility] Address [address] [place] [address] Care Team Providers Care Information Resources Manager Name Role Phone Joaquin Leonard MD Primary Care Provider Omero Mann [phone] REASON FOR VISIT esophageal dysphagia, gerd Encounters Encounter Location Date Provider Diagnosis [facility] [place] [address] [place], [place] [id number] 09/04/2023 Omero Farah Plan Of Treatment No Information Progress Notes * IAN VAUGHN ADOB: [birth year] (79 yo F)Acc No.[id number]:09/04/2023 EGD/MAC Patient: IAN CALDWELL Provider: Devendra Farah MD :1945 A ge:77 Y S ex:Female Date:09/04/2023 Address:[address] [place] [address] [address], [id number] Pcp:Joaquin Leonard MD Subjective: * Chief Complaints: * 1 . Esophageal dysphagia, gerd. * Medical History: Objective: * Vitals: Assessment: Plan: * Treatment: * * The named appointment provid er may or may not be the originator of this progress note, and it is not deemed complete until electronically signed by the appointment provider. Sign off status: Pending * Provider: Devendra Farah MD Date: 09/04/2023 Generated for Michelle ng/Fabarrong/eTransmitting on: 0 01/16/2025 12:27 PM EDT
[2025-01-16] VITALS (7 sets, daily range): BP systolic 127–257; BP diastolic 70–84; PULSE 64–77; RESP 14–21; TEMP 36.3–36.8; O2SAT 94–97; BMI 30.4; BMI 31.2
--- NOTE | ~2025-01-16 | CT_ITS ---
EXAMINATION: CT CHEST WITHOUT CONTRAST CLINICAL INFORMATION: Right-sided pleural effusion. Questionable underlying malignancy. COMPARISON: January 16, 2025. TECHNIQUE: Multidetector volumetric CT imaging of the chest was done. Axial MIP volume rendering provided. Sagittal and coronal reformatted images were obtained. This CT examination was performed using dose optimization techniques as appropriate, variously including the following: *Automated exposure control *Adjustment of mA and/or kV according to patient size (this includes techniques or standardized protocols for targeted exams where dose is matched to indication/reason for exam; i.e. extremities or head) *Use of iterative reconstruction technique. DLP: 126 mGy centimeter. FINDINGS: Right-sided pleural effusion, moderate volume. No pneumothorax. Multifocal patchy pulmonary groundglass extending from the perihilar to the periphery of the lungs. Peribronchial septal thickening, bilaterally. Subtle nodularity within the wall of the trachea. Nonspecific mediastinal lymphadenopathy. No pericardial effusion. Calcified plaques throughout the thoracic aorta wall and its main branches. Small hiatal hernia. Punctate calcifications in the pancreas. Status post cholecystectomy. Partially calcified low density dominant nodule left thyroid lobe. Multilevel cervical thoracic and upper lumbar spondylosis. Osteopenia versus osteoporosis. No acute fracture or listhesis in the axial skeleton. CT/CT chest wo IV con IMPRESSION: Right-sided pleural effusion, moderate volume. No pneumothorax. Decreased interstitial lung edema. Acute on chronic pneumonitis cannot be excluded. Sarcoidosis cannot be excluded. Questionable tracheobronchopathia osteochondroplastica Fleischner guidelines were followed. Electronically signed by: Chris Flores MD 01/18/2025 12:10 PM EDT
--- NOTE | ~2025-01-16 | XR_ITS ---
EXAMINATION: XR CHEST 2 VIEWS HISTORY: post right thoracentesis COMPARISON: Comparison is made with the prior examination dated 01/16/2025. FINDINGS: Inspiratory and expiratory AP portable views of the chest performed at 1:29 PM are submitted. No residual right pleural effusion is seen, status post ultrasound-guided thoracentesis. The lungs are clear. Is no pneumothorax or pulmonary vascular congestion. The heart is normal in size. There is degenerative disc disease of the spine. XR/XR chest 2V IMPRESSION: No pneumothorax after ultrasound-guided right thoracentesis. No residual right pleural effusion is identified. Electronically signed by: Omero Graham MD 01/17/2025 02:07 PM EDT
--- NOTE | ~2025-01-16 | XR_ITS ---
EXAMINATION: XR CHEST CLINICAL INFORMATION: cough 2 wks COMPARISON: May 04, 2023. TECHNIQUE: 2 views of the chest were obtained. FINDINGS: Patchy and confluent opacities from the mid to lower right hemithorax. Meniscal shaped opacity with the superior concavity right lower hemithorax. Positive silhouette sign right hemidiaphragm and inferior right cardiomediastinal silhouette. No pneumothorax. Cardiomediastinal silhouette size is normal. Multilevel thoracolumbar spondylosis. Metallic plate in the anterior lower cervical spine no fully included in the [id number]. Vascular calcifications in the right upper abdomen. S-shaped curvature of the thoracolumbar spine. XR/XR chest 2V IMPRESSION: Right-sided pleural effusion, moderate to large volume. Acute airspace disease, right lower lung lobe and questionable right middle lung lobe. Underlying neoplasm cannot be excluded. Electronically signed by: Chris Flores MD 01/16/2025 11:45 AM EDT
--- NOTE | ~2025-01-16 | US_ITS ---
EXAMINATION: ULTRASOUND-GUIDED THORACENTESIS CLINICAL INFORMATION: Reaccumulation of right pleural effusion. Likely neoplasm. COMPARISON: CT chest 01/16/2025 TECHNIQUE: Allowing explaining ultrasound-guided right thoracentesis procedure, benefits and risk, a written consent was obtained. Patient was placed upright sitting on ultrasound stretcher and preliminary ultrasound imaging was obtained the chest. An optimal site was selected approximately 10th interspace along the right infra scapular line and a marker was placed the skin. Marked site was cleaned and draped in usual sterile manner with 2% chlorhexidine solution. 1% lidocaine was injected puncture site. Through a small skin incision a 4 [employer] catheter was advanced from the skin into the right pleural space. After observing fluid return, stylet was withdrawn and catheter connected to vacuum bottle. After obtaining all fluid and observing no more fluid return, catheter was withdrawn and complete hemostasis puncture site. Sterile dressing applied at puncture site. Patient targeted procedure extremely well. FINDINGS: Preliminary ultrasound imaging there is moderate right pleural effusion seen. Approximately 1 L of red color fluid was removed from the right pleural space. None of this fluid was sent to lab. US/US thoracentesis IMPRESSION: Successful ultrasound-guided therapeutic right thoracentesis performed. Electronically signed by: Sherman Terrell MD 01/18/2025 02:23 PM EDT
--- NOTE | ~2025-01-16 | CT_ITS ---
EXAMINATION: CT CHEST ANGIOGRAPHY WITH IV CONTRAST INDICATION: SOB, concern for PE + neoplasm COMPARISON: Comparison is made with the prior examination dated 10/30/2017. TECHNIQUE: Helical CT scan of the chest was performed following administration of intravenous contrast (65 mL Omnipaque 350). The contrast bolus was timed to optimally opacify the pulmonary arteries. Thin sections were obtained through the pulmonary arteries. Coronal and sagittal reformatted images were generated. 3D/MIP reconstructed images are also obtained and reviewed. This CT exam was performed with one or more of the following dose reduction techniques: automated exposure control, adjustment of the mA and/or kV according to patient size, use of iterative reconstruction technique. DLP: 240 mGy-cm CHEST: THYROID: There is a 1.5 cm left thyroid nodule. PULMONARY ARTERIES: No intraluminal filling defects are identified within the pulmonary arteries to suggest pulmonary emboli. LUNGS: There is patchy airspace and groundglass opacity in both upper lobes and in the left lower lobe. There is a 3 mm nodule in the right upper lobe (series 6, image 53). There is near complete atelectasis of the right lower lobe secondary to a pleural effusion. MEDIASTINUM: There is a 12 mm precarinal lymph node. FUNMI: There are subcentimeter right hilar lymph nodes. CARDIOVASCULATURE: The heart is normal in size. There is no pericardial effusion. The thoracic aorta is normal in caliber. DEGREE OF CORONARY CALCIFICATION: not evaluable, due to dense contrast in the coronary arteries PLEURA: There is a moderate to large right pleural effusion. There is no left pleural effusion. No pneumothorax. MAIN AIRWAYS: The trachea and mainstem bronchi are patent. AXILLA: There is no axillary lymphadenopathy. UPPER ABDOMEN: The visualized portions of the liver, spleen, and adrenals are unremarkable. BONES AND SOFT TISSUES: Unremarkable. CT/CT angio chest PE protocol IMPRESSION: 1. No evidence of pulmonary emboli. 2. Moderate to large right pleural effusion. 3. Patchy groundglass and airspace opacities in both upper lobes and in the left lower lobe. Findings may represent atypical infection or asymmetric pulmonary edema. 4. Subtotal atelectasis of the right lower lobe. Electronically signed by: Omero Graham MD 01/16/2025 02:52 PM EDT RP
--- NOTE | 2025-01-16 11:17 | ED.GENADULT ---
HPI - General Adult General Chief complaint: Dyspnea Stated complaint: Coughing, Right side pain Time Seen by Provider: 01/16/25 11:50 Source: patient Mode of arrival: ambulatory Limitations: no limitations History of Present Illness ED Provider: Elli Paul PA-C HPI narrative: Patient is an 79 year old female with a past medical history of hypertension, fusion of C4 through C6, PTSD, Schatzki ring, osteoporosis, osteoarthritis presents with increasing shortness of breath and a cough. She endorses having an on and off cough for that past 10 days along with wheezing and thick white mucus. She says today she started to have yellow mucus and worsening shortness of breath so she decided to come to the emergency room. She also is feeling tired, weak and that her right chest is feeling heavy . She says walking makes her shortness of breath worse. She denies fever, chills, chest pain, palpitations, nausea, vomiting, and abdominal pain. Onset (ago): day(s) () Pain Consistency: intermittent Relieving factors: rest Exacerbating factors: movement Associated symptoms: cough, malaise and shortness of breath Treatments prior to arrival: none Related Data Home Medications ?Medication ?Instructions ?Recorded ?Confirmed calcium carbonate (Calcium 600) 1,000 mg PO DAILY 11/20/22 09/12/24 cholecalciferol (vitamin D3) 25 25 mcg PO DAILY 11/20/22 09/12/24 mcg (1,000 unit) capsule omega-3 fatty acids 1,000 mg 1,000 mg PO DAILY 11/20/22 09/12/24 capsule cyanocobalamin (vitamin B-12) 100 100 mcg PO DAILY 10/16/23 09/12/24 mcg tablet (Vitamin B-12) garlic 100 mg tablet 100 mg PO DAILY 10/16/23 09/12/24 magnesium oxide 300 mg PO DAILY 10/16/23 09/12/24 zinc 100 mg tablet 100 mg PO DAILY 10/16/23 09/12/24 melatonin 10 mg tablet 5 mg PO BEDTIME PRN Insomnia 06/14/24 09/12/24 Previous Rx's ?Medication ?Instructions ?Recorded hydrochlorothiazide 12.5 mg tablet 12.5 mg PO QAM #30 tabs 03/01/24 duloxetine 20 mg capsule,delayed 40 mg (2 x 20 mg) PO DAILY #60 caps 08/09/24 release (Cymbalta) hydroxyzine HCl 10 mg tablet 10 mg PO BEDTIME #30 tabs 08/09/24 fluoxetine 10 mg capsule (Prozac) 10 mg PO DAILY 30 days #30 caps 11/14/24 gabapentin 300 mg capsule 300 mg PO TID 90 days #270 caps 11/14/24 Allergies Allergy/AdvReac Type Severity Reaction Status Date / Time cyclobenzaprine (From Allergy Severe I WENT Verified 01/16/25 11:23 FLEXERIL) BLIND bupropion (From WELLBUTRIN) Allergy Intermediate Swelling, Verified 01/16/25 11:23 ST, Itchy tongue divalproex sodium (From Allergy Unknown INSOMNIA,AND Verified 01/16/25 11:23 DEPAKOTE) OTHER RXNS doxycycline (DOXYCYCLINE) Allergy Unknown UNKNOWN, Verified 01/16/25 11:23 tongue swelling Flexeril Allergy Unknown lost vision Verified 01/16/25 11:23 lamotrigine (LAMOTRIGINE) Allergy Unknown UNKNOWN Verified 01/16/25 11:23 fluoxetine Allergy Unknown Verified 01/16/25 11:23 naproxen Allergy Unknown Verified 01/16/25 11:23 NSAIDS (Non-Steroidal Allergy Unknown Verified 01/16/25 11:23 Anti-Inflamma pantoprazole (From Protonix) Allergy Unknown Verified 01/16/25 11:23 pravastatin Allergy Unknown Verified 01/16/25 11:23 pregabalin (From Lyrica) Allergy Unknown Verified 01/16/25 11:23 sulfamethoxazole (From Allergy Unknown Verified 01/16/25 11:23 Bactrim) trimethoprim (From Bactrim) Allergy Unknown Verified 01/16/25 11:23 losartan AdvReac Intermediate sob Verified 01/16/25 11:23 Review of Systems Constitutional: Constitutional: Reports as per HPI, Denies chills, Reports fatigue, Denies fever(s), Denies night sweats and Reports weakness Eyes: Eyes: Reports no additional eye complaints and Denies change in vision ENT: Denies dizziness Cardiovascular: Cardiovascular: Reports no additional cardiovascular complaints, Denies chest pain, Denies lightheadedness, Denies Loss of Consciousness and Reports dyspnea Respiratory: Respiratory: Reports no additional respiratory complaints, Reports change in phlegm color (white to yellow), Reports cough and Reports dyspnea Gastrointestinal: Gastrointestinal: Reports no additional gastrointestinal complaints, Denies abdominal pain, Denies melena, Denies hematochezia, Denies change in bowel habits and Denies change in stool character Genitourinary: Genitourinary: Denies hematuria, Denies urinary frequency, Denies dysuria, Denies urinary incontinence, Denies urinary hesitancy and Denies urinary urgency Musculoskeletal: Musculoskeletal: Reports no additional musculoskeletal complaints, Denies numbness and Denies tingling Neurologic: Denies dizziness, Denies numbness, Denies tingling and Reports weakness Psychiatric: Psychiatric: Reports no additional psychiatric complaints Endocrine: Endocrine: Reports no additional endocrine complaints and Reports fatigue Hematologic/Lymphatic: Hematologic/Lymphatic: Reports no additional hematologic/lymphatic complaints Allergic/Immunologic: Allergic/Immunologic: Reports no additional allergic/immunologic complaints FORMERLY [facility], 1928–1983 Past Medical History Attestation statement: The following information was validated with the patient. Source: old records reviewed and nursing notes reviewed Medical History Generalized headaches Subarachnoid hemorrhage following injury with brief loss of consciousness but without open intracranial wound Pancreatitis Hiatal hernia Anxiety Depression Pulmonary nodule Thyroid nodule PUD (peptic ulcer disease) Blood pressure elevated without history of HTN Hypertension Surgical History History of esophagogastroduodenoscopy (EGD) H/O colonoscopy Hx of melanoma excision H/O cervical spine surgery History of lumbar surgery History of knee replacement History of cholecystectomy Family History Family History Mother No problems noted. Father No problems noted. Sister Breast cancer Sister Breast cancer Daughter No problems noted. Daughter No problems noted. Daughter No problems noted. Son No problems noted. Son No problems noted. Other Mental health disorder Substance use disorder Social History Social History Housing: House Alcohol intake: current Alcohol intake frequency: holidays/special occasions only Patient Tobacco Use Status: Never used Tobacco Smoked in Last 30 Days: No e-Cigarette/Vaping Use: Never Used Second Hand Smoke Exposure: No Advance Directives: Yes Advance Directives Information Provided: No Advance Directives on File: No service: No Current occupational status: retired Cognitive needs: No Hearing needs: No Vision needs: Yes Physical Exam ED Vital Signs: Vital Signs - 24 hr 01/16/25 11:16 01/16/25 11:48 01/16/25 11:48 Temperature 98.3 F Pulse Rate 77 74 Respiratory Rate 16 16 19 Blood Pressure 135/72 159/70 H Pulse Oximetry 97 96 Oxygen Delivery Method Room Air Room Air 01/16/25 14:22 Temperature Pulse Rate 64 Respiratory Rate 21 H Blood Pressure 143/77 H Pulse Oximetry 96 Oxygen Delivery Method Room Air BMI result Body Mass Index 30.4 Const General: cooperative, no acute distress, alert and awake Nutritional Appearance: well nourished Orientation/consciousness: patient oriented x3 [facility] Head: Yes normal to inspection and Yes atraumatic Ears: hearing grossly normal bilaterally and external ears normal General nose exam: Normal external nose present, no nasal discharge noted and no epistaxis Face and sinus: Yes normal facial exam, No abrasion and No laceration Mouth: Normal oral and palatal mucosa present, no drooling and no muffled voice Eyes General: appearance normal, both eyes and all related structures Periorbital: periorbital findings normal Eyelids: Yes eyelids normal Conjunctivae: conjunctivae normal Pupils: Equal, round and reactive pupils present EOM: EOMs intact bilaterally Neck Neck: Yes normal visual inspection and Yes full ROM Resp Effort & Inspection: able to speak in complete sentences and Actively coughing Quality: wet Cardio Rate: regular rate Rhythm: regular rhythm GI Inspection: Yes normal to inspection Palpation (GI): Soft to palpation, nontender and no guarding Auscultation: normal bowel sounds Neuro General: patient oriented x3, moves all extremities and CN's II-XI intact bilaterally Cranial nerves: Yes Equal, round and reactive pupils present Cognition (Neuro): normal cognition Extrem General: Yes normal to inspection, Yes full ROM and Yes capillary refill normal Psych Appearance: grossly normal Mental Status: mental status grossly normal Affect: normal affect Attitude: cooperative Thought process: Normal thought process present Thought content: Normal thought content present Insight: Good insight present (Psych) Course Course Course Narrative: This is a rapid medical exam performed by Flaco Browne NP: Additional HPI, ROS, PE not included below will be deferred to primary provider. Patient is an 79-year-old female presenting with complaint of cough, wheezing for the past 2 weeks. Difficulty taking deep breath, feels worse on the right. Denies fevers, known sick contacts. Plan: Viral serology, basic labs, CXR Medications Administered Discontinued Medications Generic Name Dose Route Start Last Admin Trade Name Hallie PRN Reason Stop Dose Admin Azithromycin 500 mg 01/16/25 15:45 01/16/25 16:12 Azithromycin 500 Mg Tablet PO 01/16/25 15:46 500 mg ONCE ONE Administration Ceftriaxone Sodium 1 gm 01/16/25 15:45 01/16/25 16:12 Ceftriaxone Sodium 1 Gm Vial IVPUSH 01/16/25 15:46 1 gm ONCE ONE Administration Iohexol 100 ml 01/16/25 14:37 01/16/25 14:37 Iohexol 350 Mg/Ml 100 Ml Infus..Btl IV 01/16/25 14:38 65 ml ONCE ONE Administration Medical Decision Making Medical Decision Making MDM Narrative: Patient is an 79 year old female with a past medical history of hypertension, fusion of C4 through C6, PTSD, Schatzki ring, osteoporosis, osteoarthritis presents with increasing shortness of breath and a cough. Patient's physical exam was as noted in the physical exam portion of this note. Patient is not hypoxic or requiring oxygen at this time however, she is dypsneic with exertion. Patient's blood work was unremarkable. Patient's chest x-ray showed a moderate to large right pleural effusion which may represent malignancy. I obtained a CT PE study that showed no PE but did show bilateral infiltrates and a moderate to large right pleural effusion. I spoke with the hospitalist team who agreed to admission. Patient was given IV ceftriaxone and PO Azithro. Patient's clinical presentation is not consistent with sepsis (@1610). I explained my physical exam findings as well as all test results to the patient. I answered all questions asked by the patient. Patient verbalized agreement and understanding with this treatment plan and admission. Differential Diagnosis Differential Diagnoses: The differential diagnosis associated with the presentation includes PNA Pleural effusion Labored breathing Admission/Observation Consideration of admission/observation: Escalation of care including admission/observation considered Patient admitted as noted in the MDM Rationale portion of this note. Consult Healthcare Provider Management of the patient was discussed with: Hospitalist (agreed to admission as noted in the MDM Rationale portion of this note. ) Lab Data [facility] Lab Attestation statement: I reviewed the patient's lab results. My interpretation of these results are in the MDM Rationale portion of this note. 01/16/25 11:42 01/16/25 11:42 Labs: Lab Results 01/16/25 01/16/25 Range/Units 11:42 15:31 WBC 7.4 (4.8-10.8) X10*3/uL RBC 3.82 L (4.20-5.50) X10*6/uL Hgb 11.8 L (12.0-16.0) g/dl Hct 35.6 L (37.0-47.0) % MCV 93.2 (80.0-98.0) fL MCH 30.9 (27.0-33.0) pg MCHC 33.1 (31.0-35.0) g/dl RDW 12.9 (11.0-16.0) % Plt Count 275 (160-400) X10*3/uL MPV 9.2 L (9.4-12.3) fL Immature Gran % (Auto) 0.3 (0.0-0.4) % Neut % (Auto) 69.0 (45-73) % Lymph % (Auto) 18.7 L (20-40) % [place]ney % (Auto) 6.9 (2-11) % Eos % (Auto) 4.3 H (0-4) % Baso % (Auto) 0.8 (0-2) % Lymph # (Auto) 1.4 (1.2-4.9) X10*3/uL Finney # (Auto) 0.5 (0.1-1.2) X10*3/uL Eos # (Auto) 0.3 (0.0-0.4) X10*3/uL Baso # (Auto) 0.1 (0.0-0.2) X10*3/uL Abs Immat Gran (auto) 0.02 (0.00-0.03) X10*3/uL Absolute Neuts (auto) 5.1 (2.0-8.3) x10*3/uL Absolute Nucleated RBC 0.000 (0.0-0.012) X10*3/uL Nucleated RBC % (auto) 0.0 (0.0-0.2) /100WBC VBG pH 7.39 (7.32-7.43) VBG pCO2 56 mmHg VBG pO2 31 mmHg VBG HCO3 34 H (22-26) mmol/L VBG O2 Saturation 45.0 % VBG Base Excess 7.9 mmol/L Sodium 139 (135-145) mmol/L Potassium 4.6 (3.3-5.1) mmol/L Chloride 101 (96-108) mmol/L Carbon Dioxide 31 H (22-29) mmol/L Anion Gap 12 (12-20) BUN 16 (9-16) mg/dL Creatinine 0.90 (0.5-1.4) mg/dL Estim Creat Clear Calc 46.5 Estimated GFR > 60 Random Glucose 88 (60-115) mg/dL Calcium 9.0 (8.4-10.2) mg/dL Total Bilirubin 0.1 (0.0-1.0) mg/dL AST 25 (5-31) U/L ALT 10 (0-31) U/L Alkaline Phosphatase 93 (39-117) U/L Troponin I High Sens 3.9 (<3.5-17.0) ng/L B-Natriuretic Peptide 63 (<100) pg/mL Total Protein 6.6 (6.5-8.0) g/dL Albumin 3.8 (3.5-5.0) g/dL Influenza Type A (PCR) NEGATIVE (Negative) Influenza Type B (PCR) NEGATIVE (Negative) RSV RNA Qual (PCR) NEGATIVE (Negative) SARS-CoV-2 RNA (RT-PCR) NEGATIVE (Negative) Independent Interpretation I performed an independent interpretation of an: EKG, Plain X-Ray and CT Scan Interpretation: My interpretation is in agreement with the radiologist's impression of these imaging studies. EXAMINATION: XR CHEST CLINICAL INFORMATION: cough 2 wks COMPARISON: May 04, 2023. TECHNIQUE: 2 views of the chest were obtained. FINDINGS: Patchy and confluent opacities from the mid to lower right hemithorax. Meniscal shaped opacity with the superior concavity right lower hemithorax. Positive silhouette sign right hemidiaphragm and inferior right cardiomediastinal silhouette. No pneumothorax. Cardiomediastinal silhouette size is normal. Multilevel thoracolumbar spondylosis. Metallic plate in the anterior lower cervical spine no fully included in the [id number]. Vascular calcifications in the right upper abdomen. S-shaped curvature of the thoracolumbar spine. XR/XR chest 2V IMPRESSION: Right-sided pleural effusion, moderate to large volume. Acute airspace disease, right lower lung lobe and questionable right middle lung lobe. Underlying neoplasm cannot be excluded. Electronically signed by: Chris Flores MD 01/16/2025 11:45 AM EDT Dictated By: Chris Rendon MD Signed By: Electronically signed by Chris Bowen MD 01/16/25 1145 Report Number: [id number]: Total DLP = 240.00 mGy-cm EXAMINATION: CT CHEST ANGIOGRAPHY WITH IV CONTRAST INDICATION: SOB, concern for PE + neoplasm COMPARISON: Comparison is made with the prior examination dated 10/30/2017. TECHNIQUE: Helical CT scan of the chest was performed following administration of intravenous contrast (65 mL Omnipaque 350). The contrast bolus was timed to optimally opacify the pulmonary arteries. Thin sections were obtained through the pulmonary arteries. Coronal and sagittal reformatted images were generated. 3D/MIP reconstructed images are also obtained and reviewed. This CT exam was performed with one or more of the following dose reduction techniques: automated exposure control, adjustment of the mA and/or kV according to patient size, use of iterative reconstruction technique. DLP: 240 mGy-cm CHEST: THYROID: There is a 1.5 cm left thyroid nodule. PULMONARY ARTERIES: No intraluminal filling defects are identified within the pulmonary arteries to suggest pulmonary emboli. LUNGS: There is patchy airspace and groundglass opacity in both upper lobes and in the left lower lobe. There is a 3 mm nodule in the right upper lobe (series 6, image 53). There is near complete atelectasis of the right lower lobe secondary to a pleural effusion. MEDIASTINUM: There is a 12 mm precarinal lymph node. FUNMI: There are subcentimeter right hilar lymph nodes. CARDIOVASCULATURE: The heart is normal in size. There is no pericardial effusion. The thoracic aorta is normal in caliber. DEGREE OF CORONARY CALCIFICATION: not evaluable, due to dense contrast in the coronary arteries PLEURA: There is a moderate to large right pleural effusion. There is no left pleural effusion. No pneumothorax. MAIN AIRWAYS: The trachea and mainstem bronchi are patent. AXILLA: There is no axillary lymphadenopathy. UPPER ABDOMEN: The visualized portions of the liver, spleen, and adrenals are unremarkable. BONES AND SOFT TISSUES: Unremarkable. CT/CT angio chest PE protocol IMPRESSION: 1. No evidence of pulmonary emboli. 2. Moderate to large right pleural effusion. 3. Patchy groundglass and airspace opacities in both upper lobes and in the left lower lobe. Findings may represent atypical infection or asymmetric pulmonary edema. 4. Subtotal atelectasis of the right lower lobe. Electronically signed by: Omero Graham MD 01/16/2025 02:52 PM EDT RP Dictated By: Omero Graham MD Signed By: Electronically signed by Omero Graham MD 01/16/25 1452 Radiology Impression Discussion of test interpretation with radiology: I have reviewed the radiologist's reading. Critical Care Time Critical Care Time Critical Care Time: Yes Total Critical Care Time: 36 Attestation: I spent 36 minutes of Critical Care Time with this patient. This does not include time spent on separately reported billable procedures. Discharge Plan Discharge Clinical Impression: Pleural effusion, Pneumonia Patient Disposition: Admitted As Inpatient
[2025-01-16 11:47] LABS: MANUAL DIFF FLAG NO
[2025-01-16 11:48] LABS: Hematocrit 35.6 % (37.0-47.0); Hemoglobin 11.8 g/dl (12.0-16.0); Imm Gran Abs Auto 0.02 X10*3/uL (0.00-0.03); Imm Gran Pct Auto 0.3 % (0.0-0.4); Lymphocytes Absolute Auto 1.4 X10*3/uL (1.2-4.9); Mean Corpuscular HGB Conc 33.1 g/dl (31.0-35.0); Mean Corpuscular Hemoglobin 30.9 pg (27.0-33.0); Mean Corpuscular Volume 93.2 fL (80.0-98.0); NRBC Abs Auto 0.000 X10*3/uL (0.0-0.012); NRBC Pct Auto 0.0 /100WBC (0.0-0.2); Platelet Count 275 X10*3/uL (160-400); Red Blood Count 3.82 X10*6/uL (4.20-5.50); White Blood Count 7.4 X10*3/uL (4.8-10.8)
--- NOTE | 2025-01-16 11:54 | PC.NURSE ---
Pt coming from home reporting 1-2 weeks of increased weakness, feeling unwell, and coughing. Pt reports she normally has white sputum but has been having some yellow sputum the last week. Denies asthma smoking history. Pt reports she does not doing breathing treatments at home but does report they have done multiple lung function tests on her which have always come back negative. Pt placed on monitor, vitals stable at this time, she remains on RA, she is able to talk in full sentences. Exp wheezing noted throughout.
[2025-01-16 12:04] LABS: Alanine Aminotransferase 10 U/L (0-31); Albumin Level 3.8 g/dL (3.5-5.0); Alkaline Phosphatase 93 U/L (39-117); Anion Gap 12 (12-20); Aspartate Amino Transferase 25 U/L (5-31); Blood Urea Nitrogen 16 mg/dL (9-16); Calcium 9.0 mg/dL (8.4-10.2); Carbon Dioxide 31 mmol/L (22-29); Chloride 101 mmol/L (96-108); Creatinine Clr Calc Pharmacy 46.5; Estimated Glomerular Filt Rate > 60; Potassium 4.6 mmol/L (3.3-5.1); Sodium 139 mmol/L (135-145); Total Protein 6.6 g/dL (6.5-8.0)
[2025-01-16 12:24] LABS: Resp Syncy Virus RNA Qual PCR NEGATIVE (Negative); SARS COV2 PCR INHOUSE NEGATIVE (Negative)
--- OUTSIDE RECORDS SUMMARY | 2025-01-16 12:28 | XMS_ITS | Patient Health Record ---
Author Organization [facility] s Address [address] [place] [address] Care Team Providers Care Instrument Checker Name Role Phone Alessio CASTAÑEDA, Pricila Primary Care Provider Vaughn Woodward Unavailable [phone] Allergies Allergen (clinical drug ingredient) Drug/Non Drug [...] Date Status Zinc Active pravastatin 20 mg tablet 1 tab(s) orally once a day; Duration: 30 day(s) Active Magnesium qd Active Calcium unknown tab 1 tab po qd Active clonazePAM 0.5 mg tablet 1 tab(s) orally 3 times a day; Duration: 30 day(s) Active Omeprazole 20 mg delayed release capsule 1 cap(s) orally once a day; Duration: 30 day(s) Active FLUoxetine 40 mg capsule 1 cap(s) orally once a day; Duration: 30 day(s) Active Hair, Skin, Nails 5 mg capsule 1 cap(s) orally once a day; Duration: 30 day(s) Active B12 injection 1000 A ctive COQ10 100 mg 1 tab qd Active melatonin 10 mg capsule 1 cap(s) orally PRN Active Fish Oil 500 mg capsule 2 cap(s) orally 2 times a day Active Aspirin Low Dose 81 mg delayed release tablet 1 tab(s) orally once a day; Duration: 30 day(s) Active mirtazapine 15 mg tablet 1 tab(s) orally prn Active Social History Tobacco Use: Social History Observation Description Date Details (start date - stop date) Never Smoker NA - NA Social History Social History Social Info Question Answer Notes smoking Tobacco use: never smoker Additional Details Category Social Info Options Details Social History alcohol no Tattoos no blood transfusions no 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 Alfredo has [...] and speech therapy evaluation. Problem Esophageal stricture (13951375) Esophageal stricture (K22.2) Active confirmed Plan Of Treatment Pending Test Test Name Order Date EGD 03/15/2019 Insurance Providers Payer Name Payer Address Payer Phone Subscriber Number Group Number Insured Name Patient Relationship to Insured Coverage Start Date Coverage End Date [employer] [facility] HMO [address] [address] Ranjit [id number] Selena Alfredo Self - patient is the insured 9 [employer] [facility] Plus [address] [address] [place] [phone] [id number] Selena Alfredo Self - patient is the insured Medical (General) History Medical History History ICD Code Anxiety ( PTSD) with Panic Attacks Gastric ulcer Hiatal hernia Pancreatitis in 2017 Vitamin B12 deficiency Vitamin D deficiency Cataracts - bilateral Thyroid nodule Surgical History Surgery Date(Month/Year) Cholecystectomy 2014 Catarct surgery 02-15-2019
[2025-01-16] MEDS: iohexoL 350 MG/ML 100 ML INFUS..BTL IV (14:37)
[2025-01-16 15:35] LABS: Venous Blood Gas Refer to POC result
[2025-01-16 15:35] LABS: Troponin-I High Sensitivity 3.9 ng/L (<3.5-17.0)
[2025-01-16 15:35] LABS: VBG HCO3 34 mmol/L (22-26); VBG O2 % Saturation 45.0 %
[2025-01-16 15:38] LABS: B Type Natriuretic Peptide 63 pg/mL (<100)
--- NOTE | 2025-01-16 17:00 | PHA.MEDREC ---
Pharmacy Consult ? Medication Reconciliation Pharmacy has completed the medication reconciliation. Patient states she only takes Gabapentin 600 mg (2x 300 mg) daily, even though claims has Gabapentin 300 mg TID. Patient also takes OTC vitamin D3, B-12, garlic, mar, mag-oxide and [place] 3.
--- NOTE | 2025-01-16 17:03 | PHA.MEDREC ---
Addendum entered by Dejah Quesada RPh 01/16/25 17:08: REVIEWED BY PHARMACIST Original Note: Pharmacy Consult ? Medication Reconciliation Pharmacy has completed the medication reconciliation. Patient state she is no longer taking Duloxetine 20 mg, Fluoxetine 10 mg, HCTZ 12.5 mg, and Hydroxyzine 10 mg. Patient confirmed she only takes Gabapentin 600 mg (2x 300 mg) daily, even though claims has Gabapentin 300 mg TID. Patient also takes OTC vitamin D3, B-12, garlic, mar, mag-oxide and [place] 3.
--- NOTE | 2025-01-16 17:17 | PM.IMHP ---
History of Present Illness Date of Service: 01/16/25 Attending physician on admission: Delphine Frias Chief Complaint: SOB Pt is an 79-year-old female with a PMH significant for?sciatica, osteoarthritis, C4-C6 fusion, and Schatzki ring who presents to the ED with?wheezing, SOB, IBRAHIM, and right-sided chest discomfort x10 days. Pt has been having cough with ?thick white? sputum that today was a little bit yellow. Has overall been feeling weak and had difficulty moving, especially with exertion. Right-sided chest discomfort is nonradiating and worse with exertion. Chronic headache at baseline. Denies chest pain or pressure. No nausea, vomiting, diarrhea, or abdominal pain. Pt denies any recent unintended weight loss, fever, chills, or night sweats. In the ED pt was hypertensive up to 159/70, vitals otherwise stable. Labs were overall grossly unremarkable and around baseline for pt. No leukocytosis. Stable H&H. No significant electrolyte abnormalities. Renal and hepatic function at baseline. Troponin WNL at 3.9. BNP WNL at 63. Tested negative for flu, COVID, and RSV. CXR showed moderate to large volume right-sided pleural effusion, and acute airspace disease RLL and questionable right middle lobe. Underlying neoplasm can not be excluded. CTA of chest negative for pulmonary embolism, but showed moderate to large right pleural effusion, and patchy ground-glass and airspace opacities in both upper lobes and in left lower lobe: Atypical infection vs asymmetric pulmonary edema. Pt was treated in the ED with ceftriaxone and azithromycin. Pt is admitted to the hospital for treatment and further evaluation of right-sided pleural effusion in setting of CHF vs pneumonia vs malignancy. Review of Systems Review of Systems: Negative except for that which is stated in the HPI. [facility] Medical History Generalized headaches Subarachnoid hemorrhage following injury with brief loss of consciousness but without open intracranial wound Pancreatitis Hiatal hernia Anxiety Depression Pulmonary nodule Thyroid nodule PUD (peptic ulcer disease) Blood pressure elevated without history of HTN Hypertension Family History Mother No problems noted. Father No problems noted. Sister Breast cancer Sister Breast cancer Daughter No problems noted. Daughter No problems noted. Daughter No problems noted. Son No problems noted. Son No problems noted. Other Mental health disorder Substance use disorder Surgical History History of esophagogastroduodenoscopy (EGD) H/O colonoscopy Hx of melanoma excision H/O cervical spine surgery History of lumbar surgery History of knee replacement History of cholecystectomy Social History Housing: House Alcohol intake: current Alcohol intake frequency: holidays/special occasions only Patient Tobacco Use Status: Never used Tobacco Smoked in Last 30 Days: No e-Cigarette/Vaping Use: Never Used Second Hand Smoke Exposure: No Advance Directives: Yes Advance Directives Information Provided: No Advance Directives on File: No service: No Current occupational status: retired Cognitive needs: No Hearing needs: No Vision needs: Yes Meds Allergies Allergy/AdvReac Type Severity Reaction Status Date / Time cyclobenzaprine (From Allergy Severe I WENT Verified 01/16/25 11:23 FLEXERIL) BLIND bupropion (From WELLBUTRIN) Allergy Intermediate Swelling, Verified 01/16/25 11:23 ST, Itchy tongue divalproex sodium (From Allergy Unknown INSOMNIA,AND Verified 01/16/25 11:23 DEPAKOTE) OTHER RXNS doxycycline (DOXYCYCLINE) Allergy Unknown UNKNOWN, Verified 01/16/25 11:23 tongue swelling Flexeril Allergy Unknown lost vision Verified 01/16/25 11:23 lamotrigine (LAMOTRIGINE) Allergy Unknown UNKNOWN Verified 01/16/25 11:23 fluoxetine Allergy Unknown Verified 01/16/25 11:23 naproxen Allergy Unknown Verified 01/16/25 11:23 NSAIDS (Non-Steroidal Allergy Unknown Verified 01/16/25 11:23 Anti-Inflamma pantoprazole (From Protonix) Allergy Unknown Verified 01/16/25 11:23 pravastatin Allergy Unknown Verified 01/16/25 11:23 pregabalin (From Lyrica) Allergy Unknown Verified 01/16/25 11:23 sulfamethoxazole (From Allergy Unknown Verified 01/16/25 11:23 Bactrim) trimethoprim (From Bactrim) Allergy Unknown Verified 01/16/25 11:23 losartan AdvReac Intermediate sob Verified 01/16/25 11:23 Home Medications ?Medication ?Instructions ?Recorded ?Confirmed ?Last Taken ?Type calcium carbonate (Calcium 600) 1,000 mg PO DAILY 11/20/22 01/16/25 01/15/25 History cholecalciferol (vitamin D3) 25 25 mcg PO DAILY 11/20/22 01/16/25 01/15/25 History mcg (1,000 unit) capsule omega-3 fatty acids 1,000 mg 1,000 mg PO DAILY 11/20/22 01/16/25 01/15/25 History capsule cyanocobalamin (vitamin B-12) 100 100 mcg PO DAILY 10/16/23 01/16/25 01/15/25 History mcg tablet (Vitamin B-12) garlic 100 mg tablet 100 mg PO DAILY 10/16/23 01/16/25 01/15/25 History magnesium oxide 300 mg PO DAILY 10/16/23 01/16/25 01/15/25 History zinc 100 mg tablet 100 mg PO DAILY 10/16/23 01/16/25 01/15/25 History melatonin 10 mg tablet 5 mg PO BEDTIME PRN Insomnia 06/14/24 01/16/25 Unknown History gabapentin 300 mg capsule 600 mg PO DAILY 01/16/25 01/16/25 01/15/25 History Physical Exam Vital Signs and Narrative: Vital Signs: Last Vital Signs Temp 98.3 F 01/16/25 11:16 Pulse 66 01/16/25 16:06 Resp 16 01/16/25 16:06 BP 257/81 H 01/16/25 16:06 Pulse Ox 96 01/16/25 16:06 O2 Del Method Room Air 01/16/25 16:06 BMI result Body Mass Index 30.4 General: AOx3, no acute distress Resp: Diminished on right lower lobe. CVS: S1, S2, RRR GI: +BS, NT, no distention Skin: Warm, dry Neuro: Cranial nerves II-XII grossly intact bilaterally. Motor grossly intact bilaterally Extremities: No edema; pt with compression stockings Psych: Appropriate affect Results Labs 01/16/25 11:42 01/16/25 11:42 Labs: Laboratory Results - last 24 hr 01/16/25 01/16/25 11:42 15:31 MCV 93.2 MCH 30.9 MCHC 33.1 RDW 12.9 Plt Count 275 MPV 9.2 L Immature Gran % (Auto) 0.3 Neut % (Auto) 69.0 Lymph % (Auto) 18.7 L [place] % (Auto) 6.9 Eos % (Auto) 4.3 H Baso % (Auto) 0.8 Lymph # (Auto) 1.4 [place] # (Auto) 0.5 Eos # (Auto) 0.3 Baso # (Auto) 0.1 Abs Immat Gran (auto) 0.02 Absolute Neuts (auto) 5.1 Absolute Nucleated RBC 0.000 Nucleated RBC % (auto) 0.0 VBG pH 7.39 VBG pCO2 56 VBG pO2 31 VBG HCO3 34 H VBG O2 Saturation 45.0 VBG Base Excess 7.9 Anion Gap 12 Estim Creat Clear Calc 46.5 Estimated GFR > 60 Random Glucose 88 Calcium 9.0 Total Bilirubin 0.1 AST 25 ALT 10 Alkaline Phosphatase 93 B-Natriuretic Peptide 63 Total Protein 6.6 Albumin 3.8 Influenza Type A (PCR) NEGATIVE Influenza Type B (PCR) NEGATIVE RSV RNA Qual (PCR) NEGATIVE SARS-CoV-2 RNA (RT-PCR) NEGATIVE Imaging Radiologist's Impressions: Impressions Chest X-Ray 01/16/25 10:39 IMPRESSION: Right-sided pleural effusion, moderate to large volume. Acute airspace disease, right lower lung lobe and questionable right middle lung lobe. Underlying neoplasm cannot be excluded. Electronically signed by: Chris Flores MD 01/16/2025 11:45 AM EDT RP Chest CTA 01/16/25 13:26 IMPRESSION: 1. No evidence of pulmonary emboli. 2. Moderate to large right pleural effusion. 3. Patchy groundglass and airspace opacities in both upper lobes and in the left lower lobe. Findings may represent atypical infection or asymmetric pulmonary edema. 4. Subtotal atelectasis of the right lower lobe. Electronically signed by: Omero Graham MD 01/16/2025 02:52 PM EDT RP Assessment and Plan (1) Pleural effusion: Status: Acute Plan Pt is an 79-year-old female with a PMH significant for?sciatica, osteoarthritis, C4-C6 fusion, and Schatzki ring who presents to the ED with?wheezing, SOB, IBRAHIM, and right-sided chest discomfort x10 days. Pt is admitted to the hospital for treatment and further evaluation of right-sided pleural effusion in setting of CHF vs pneumonia vs malignancy. Pulmonary effusion Imaging showing moderate to large right pleural effusion CTA negative for obvious malignancy; no hx of CHF, BNP WNL Will get US-guided thoracentesis tomorrow for therapeutic and diagnostic tap Will treat with Lasix 40mg IV now; hold on additional until echo and thorocentesis Echocardiogram Monitor I/O, BMP Check pleural fluid studies Pulmonology consult Question of pneumonia CTA showing patchy ground-glass and airspace opacities in both upper lobes and left lower lobe: Atypical infection vs asymmetric pulmonary edema No sepsis Will empirically treat with ceftriaxone and azithromycin, started 01/16/2025 Check Legionella Ag urine, MRSA nasal screen, and strep pneumo Sciatica Continue gabapentin Osteoarthritis Tylenol as needed Full Code Attending:?Dr. Frias DVT Prophylaxis: Pneumatic compression until s/p thoracentesis Pt will require a hospitalization of at least two nights for treatment of?right-sided pleural effusion in the setting of CHF vs pneumonia vs malignancy. Quality Stroke Does the patient have a stroke diagnosis?: No VTE Prior VTE?: No VTE Risk Level:: Medical - moderate - high VTE Device Contraindication: N/A - Device Ordered VTE Drug Contraindication: Treatment Not Indicated
[2025-01-16] MEDS: Furosemide 40 MG/4 ML VIAL IVPUSH (17:51)
[2025-01-16] MEDS: 0.9 % Sodium Chloride Flush 3 ML SYRINGE IVFLUSH (21:01)
[2025-01-17 03:50] VITALS: BP 131/60; PULSE 70; RESP 18; TEMP 36.2; O2SAT 92
[2025-01-17 06:45] LABS: Anion Gap 12 (12-20); Blood Urea Nitrogen 16 mg/dL (9-16); Calcium 9.1 mg/dL (8.4-10.2); Carbon Dioxide 33 mmol/L (22-29); Chloride 100 mmol/L (96-108); Creatinine Clr Calc Pharmacy 47.2; Estimated Glomerular Filt Rate > 60; Potassium 4.5 mmol/L (3.3-5.1); Sodium 140 mmol/L (135-145)
--- NOTE | 2025-01-17 07:00 | CA_ITS ---
Transthoracic Echocardiogram Patient (Last, First, Middle): Selena Alfredo A Gender: Female Date of : 1945 Age: 79 Procedure Date: 01/17/2025 Procedure Type: Transthoracic Echocardiogram Location: 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 The visually estimated ejection fraction is between 60-65%. Diastolic function is normal for age. - There is a moderate pleural effusion. There are no definitive echocardiographic findings of tamponade physiology. Moderate loculated pericardial effusion around the right atrium. Findings Left Ventricle Normal left ventricular size, thickness, systolic function, and wall motion. The visually estimated ejection fraction is between 60-65%. Diastolic function is normal for age. Right Ventricle Normal right ventricular cavity size and systolic function. Atria The left atrium is normal in size. The right atrium is normal in size. Aortic Valve Normal aortic valve structure and function. There is no aortic valve stenosis. There is trace (trivial) aortic valve regurgitation. Mitral Valve Normal mitral valve structure and function. There is no mitral valve regurgitation. There is no mitral valve stenosis. Pulmonic Valve The pulmonic valve is normal. There is no pulmonic valve regurgitation. Tricuspid Valve Normal tricuspid valve structure. There is trace tricuspid valve regurgitation. Normal right atrial pressure. There is no evidence of pulmonary hypertension. Great Vessels All visible segments of the aorta are normal in size. Venous The inferior vena cava is normal in size and collapses greater than 50% with inspiration. Pericardium/Pleural There is a moderate pleural effusion. There are no definitive echocardiographic findings of tamponade physiology. Moderate loculated pericardial effusion around the right atrium. Prior Study Comparison No prior study available for comparison. Measurements 2D Linear Measurements IVSd: 1.23 0.6-0.9/0.6-1.0 cm LVIDd: 2.52 3.9-5.3/4.2-5.9 cm LVIDd Index: 1.42 2.4-3.2/2.2-3.1 cm/m2 LVIDs: 1.67 2.0-3.6 cm LVPWd: 1.23 0.7-1.1 cm Ao Root: 3.00 2.1-3.5 cm LA Diam: 3.00 2.7-3.8/3.0-4.0 cm LAIDs Index: 1.69 1.5-2.3 cm/m2 LV Mass: 111.80 67-162/88-224 g LV Mass Index: 62.81 43-95/49-115 g/m2 LVOT Diam: 2.00 3.0+(-)1.3 cm 2D Systolic Function EF 4C: 61.40 >55% EF 2C: 61.70 >55% EF BiP: 60.60 >55% Mitral Valve MV Pk E: 0.48 MV PK A: 0.88 MV Decel Time: 184.00 E/A: 0.50 E'Lateral: 8.16 E'Medial: 5.44 E/E' Med: 8.80 E/E' Lat: 5.80 PHT: 54.00 MVA PHT: 4.07 Decel Edmunds: 2.59 Aortic Valve AoV Pk Abner: 1.31 AoV Mn Abner: 0.82 AoV VTI: 0.23 AoV Pk Grad: 7.00 Aov Mn Grad: 3.00 JINNY Cont.VTI: 2.52 AI Pk Abner: 4.06 AI Edmunds: 3.36 LVOT LVOT Pk Abner: 1.15 LVOT Mn Abner: 0.74 LVOT VTI: 0.19 LVOT Pk Grad: 5.00 LVOT Mn Grad: 3.00 LVOT Diam: 2.00 LVOT Area: 3.14 Diastolic Function MV Pk E: 0.48 MV Pk A: 0.88 E/A: 0.50 E'Medial: 5.44 E/E' Med: 8.80 E' Laterial: 8.16 E/E' Lat: 5.80 Right Ventricle TAPSE (mm): 17.00 Tricuspid Valve TR Pk Abner: 2.49 TR Pk Grad: 25.00 RA Press: 3.00 RVSP: 28.00 Great Vessels Aorta Ao Root-2D: 3.00 2.0-3.7 cm Ao Asc: 3.00 2.1-3.4 cm Pulmonary Valve PV Pk Abner: 0.98 Peak PV Grad: 4.00 Updated in Other Vendor System with Status of Final Frank Driver MD electronically signed on 01/17/2025 2:19:25 PM with status of Final
[2025-01-17 07:54] VITALS: BP 132/60; PULSE 85; RESP 16; TEMP 36.6; O2SAT 93
[2025-01-17] MEDS: 0.9 % Sodium Chloride Flush 3 ML SYRINGE IVFLUSH ×2 (08:42→20:14)
[2025-01-17 09:59] LABS: MRSA Nasal PCR POSITIVE (Negative); SA Nasal PCR POSITIVE (Negative)
--- NOTE | 2025-01-17 13:03 | HO.PM.IMPN ---
Subjective Subjective Date of Service: 01/17/25 Interval History: No acute events overnight Feels slightly better, though still tired No CP Cough mildly better Physical Exam Exam: Exam: General: AOx3, no acute distress Resp: Diminished at right lung base CVS: S1, S2, RRR GI: +BS, NT, no distention Skin: Warm, dry Neuro: Cranial nerves II-XII grossly intact bilaterally. Motor grossly intact bilaterally Extremities: No edema; pt with compression stockings Psych: Appropriate affect Vital Signs: Vital Signs: Last Vital Signs Temp 97.9 F 01/17/25 07:54 Pulse 85 01/17/25 07:54 Resp 16 01/17/25 07:54 BP 132/60 01/17/25 07:54 Pulse Ox 93 01/17/25 07:54 O2 Del Method Room Air 01/17/25 07:54 BMI result Body Mass Index 31.2 Objective Data Active Medications Acetaminophen (Acetaminophen 325 Mg Tablet) 650 mg PO Q6H PRN PRN Reason: Pain, Mild 1-3,fever,headache Calcium Carbonate (Calcium Carbonate 750 Mg Tab.Chew) 750 mg PO Q4H PRN PRN Reason: Heartburn Calcium Carbonate (Calcium Carbonate 750 Mg Tab.Chew) 750 mg PO DAILY [facility] Last Admin: 01/17/25 08:45 Dose: Not Given Documented By: MARGARET Non-Admin Reason: Patient Refused Ceftriaxone Sodium (Ceftriaxone Sodium 1 Gm Vial) 1 gm IVPUSH Q24H [facility] Cyanocobalamin (Cyanocobalamin (Vitamin B-12) 100 Mcg Tablet) 100 mcg PO DAILY [facility] Last Admin: 01/17/25 08:40 Dose: 100 mcg Documented By: MARGARET Azithromycin 500 mg/ Sodium (Chloride) 250 mls @ 125 mls/hr IV Q24H [facility] Magnesium Hydroxide (Milk Of Magnesia 30 Ml Oral.Susp) 30 ml PO DAILY PRN PRN Reason: Constipation Magnesium Oxide (Magnesium Oxide 400 Mg Tablet) 400 mg PO DAILY [facility] Last Admin: 01/17/25 08:40 Dose: 400 mg Documented By: MARGARET Melatonin (Melatonin 3 Mg Tablet) 6 mg PO BEDTIME PRN PRN Reason: Insomnia Ondansetron HCl (Ondansetron Hcl 4 Mg/2 Ml Vial) 4 mg IVPUSH Q8H PRN PRN Reason: Nausea and Vomiting Last Admin: 01/17/25 12:24 Dose: 4 mg Documented By: MARGARET Sodium Chloride (0.9 % Sodium Chloride Flush 3 Ml Syringe) 3 ml IVFLUSH QSHIFT [facility] Last Admin: 01/17/25 08:42 Dose: 3 ml Documented By: MARGARTE Vitamin D (Cholecalciferol (Vitamin D3) 25 Mcg Tablet) 25 mcg PO DAILY [facility] Last Admin: 01/17/25 08:39 Dose: 25 mcg Documented By: MARGARET Zinc Sulfate (Zinc Sulfate 220 Mg Capsule) 220 mg PO DAILY [facility] Last Admin: 01/17/25 08:40 Dose: 220 mg Documented By: MARGARET Labs 01/16/25 11:42 01/17/25 05:45 Labs: Laboratory Results - last 24 hr 01/16/25 01/16/25 01/16/25 11:42 15:31 18:45 Hold Purple Top VBG pH 7.39 VBG pCO2 56 VBG pO2 31 VBG HCO3 34 H VBG O2 Saturation 45.0 VBG Base Excess 7.9 Anion Gap Estim Creat Clear Calc Estimated GFR Random Glucose Calcium Lactate Dehydrogenase 194 B-Natriuretic Peptide 63 Nasal Screen MRSA (PCR) POSITIVE A Nasal S. aureus Screen POSITIVE A Nasal MRSA/S.aureus Interp SEE NOTE 01/17/25 05:45 Hold Purple Top SEE NOTE VBG pH VBG pCO2 VBG pO2 VBG HCO3 VBG O2 Saturation VBG Base Excess Anion Gap 12 Estim Creat Clear Calc 47.2 Estimated GFR > 60 Random Glucose 101 Calcium 9.1 Lactate Dehydrogenase B-Natriuretic Peptide Nasal Screen MRSA (PCR) Nasal S. aureus Screen Nasal MRSA/S.aureus Interp Assessment and Plan (1) Pleural effusion: Status: Acute Plan Pt is an 79-year-old female with a PMH significant for?sciatica, osteoarthritis, C4-C6 fusion, and Schatzki ring who presents to the ED with?wheezing, SOB, IBRAHIM, and right-sided chest discomfort x10 days. Pt is admitted to the hospital for treatment and further evaluation of right-sided pleural effusion in setting of CHF vs pneumonia vs malignancy. Pulmonary effusion Imaging showing moderate to large right pleural effusion CTA negative for obvious malignancy; no hx of CHF, BNP WNL Plans to get US-guided thoracentesis today for therapeutic and diagnostic tap Received Lasix 40mg IV yesterday; holding on additional diuretics pending echo and thorocentesis Echocardiogram Monitor I/O, BMP Check pleural fluid studies Pulmonology consult Question of pneumonia CTA showing patchy ground-glass and airspace opacities in both upper lobes and left lower lobe: Atypical infection vs asymmetric pulmonary edema No sepsis MRSA nasal screen positive; switch azithromycin to doxycycline Will empirically treat with ceftriaxone and vanco, day 2 Check Legionella Ag urine, strep pneumo Sciatica Continue gabapentin Osteoarthritis Tylenol as needed Full Code Attending:?Dr. Frias DVT Prophylaxis: Pneumatic compression until s/p thoracentesis Pt requires continued hospitalization for continued IV abx, thoracentesis, and following pleural fluid studies. Quality Stroke Does the patient have a stroke diagnosis?: No VTE Prior VTE?: No VTE Risk Level:: Medical - moderate - high VTE Device Contraindication: N/A - Device Ordered VTE Drug Contraindication: Treatment Not Indicated
[2025-01-17 13:05] VITALS: BP 117/65; PULSE 84; RESP 18; O2SAT 95
[2025-01-17 13:20] VITALS: BP 113/67; PULSE 107; RESP 13; O2SAT 96
[2025-01-17] MEDS: Lidocaine HCl 1 % MPF 5 ML VIAL SUBCUT (13:36)
[2025-01-17 14:07] LABS: MN% 82.2 %; PMN% 17.8 %; WBC Pleural Fluid 1.275 X10*3/uL
[2025-01-17] MEDS: vancomycin/NS 2,000 MG/500 ML PLAST..BAG 250 MG IV (14:19)
--- NOTE | 2025-01-17 14:24 | PHA.PROG ---
Admission Date/Time: January 16, 2025 15:55 Indication: Respiratory Weight in k.5 kg Serum Creatinine - Last 168 Hours 01/16/25 01/17/25 11:42 05:45 Creatinine 0.90 0.90 Estimated CrCl and GFR - Last 168 Hours 01/16/25 01/17/25 11:42 05:45 Estim Creat Clear Calc 46.5 47.2 Estimated GFR > 60 > 60 Vancomycin Loading Dose: 2,000 mg Current Vancomycin Dosing Regimen: 1,500 mg q24h Vancomycin Monitoring using AUC goal of 400 - 600 range with trough as surrogate marker: 579, trough: 17.1 Date and Time for next Vancomycin Level to be drawn: 01/19 @ 1100 Pharmacist Comments on Vancomycin Plan: Vancomycin dosing will take advantage of [employer] as a clinical decision support tool that uses Bayesian modeling to calculate individual patient's pharmacokinetic parameters and forecast the patient's drug concentration time course with the target goal AUC 24 range of 400 - 600 mg/L/hr.
--- NOTE | 2025-01-17 14:31 | P.CONPL_ITS ---
History of Present Illness History of Present Illness Consult date: 01/17/25 Chief complaint: Pleural effusion Narrative: 79-year-old lady with underlying GERD, Schatzki's ring, hypotension admitted on 01/16/2025 with progressive weakness and right-sided chest discomfort with mild dyspnea. On initial ER evaluation patient with large right-sided pleural effusion. She was treated for community-acquired pneumonia and admitted to telemetry service. She denies productive cough. Review of Systems 2 Constitutional: Constitutional: Denies daytime sleepiness, Denies excessive sweating, Denies fatigue, Denies fever(s), Denies lethargy, Reports malaise, Denies night sweats, Denies snoring and Denies weight loss Eyes: Eyes: Denies blurry vision and Denies itchy eyes ENT: Denies nasal congestion, Denies post nasal drip, Denies sinus pain, Denies sinus pressure and Denies other ( Thrush) Cardiovascular: Cardiovascular: Denies chest pain, Denies pedal edema, Reports dyspnea, Denies orthopnea and Denies paroxysmal nocturnal dyspnea Respiratory: Respiratory: Denies cough, Denies hemoptysis, Denies excessive phlegm production, Reports dyspnea, Denies snoring and Denies wheezing Gastrointestinal: Gastrointestinal: Denies abdominal pain and Denies heartburn Musculoskeletal: Musculoskeletal: Denies myalgias, Denies arthralgias and Denies joint swelling Integumentary/Breasts: Skin/Breast: Denies rash Neurologic: Denies memory loss and Denies seizure-like activity Psychiatric: Psychiatric: Denies abnormal sleep pattern, Denies anxiety and Denies memory loss Endocrine: Endocrine: Denies excessive sweating, Denies fatigue and Denies heat intolerance Hematologic/Lymphatic: Hematologic/Lymphatic: Denies easy bruising Allergic/Immunologic: Allergic/Immunologic: Denies itchy eyes, Denies seasonal rhinorrhea and Denies wheezing PMFSH Past Medical History Medical History Generalized headaches Subarachnoid hemorrhage following injury with brief loss of consciousness but without open intracranial wound Pancreatitis Hiatal hernia Anxiety Depression Pulmonary nodule Thyroid nodule PUD (peptic ulcer disease) Blood pressure elevated without history of HTN Hypertension Family History Family History Mother No problems noted. Father No problems noted. Sister Breast cancer Sister Breast cancer Daughter No problems noted. Daughter No problems noted. Daughter No problems noted. Son No problems noted. Son No problems noted. Other Mental health disorder Substance use disorder Surgical History Surgical History History of esophagogastroduodenoscopy (EGD) H/O colonoscopy Hx of melanoma excision H/O cervical spine surgery History of lumbar surgery History of knee replacement History of cholecystectomy Social History Social History Household Members: None Housing: House Housing Other:: senior housing Do you presently have visiting nurse or other home services: No Alcohol intake: current Alcohol intake frequency: holidays/special occasions only Patient Tobacco Use Status: Never used Tobacco Smoked in Last 30 Days: No e-Cigarette/Vaping Use: Never Used Second Hand Smoke Exposure: No Currently Displaying Signs/Symptoms of Drug Intoxication Withdrawal: No Have you been hit, kicked, punched, or otherwise hurt by someone within the past year? If so, by whom?: No Do you feel safe in your current relationship?: No Current Relationship Is there a partner from a previous relationship who is making you feel unsafe now?: No Are you made to feel afraid or neglected: No Advance Directives: Yes Advance Directives Information Provided: No Advance Directives on File: No Advance Directives Date on File: 01/16/25 Do you have a plan to hurt others: No Plan Recently lost weight without trying: No How much weight loss: Not applicable Eating poorly because of decreased appetite: No Nutrition screen score: 0 Nutrition Risks: Dental problems Patient : No : No Poor oral hygiene: No service: No Current occupational status: retired Cognitive needs: No Hearing needs: No Vision needs: Yes Meds Allergies Allergy/AdvReac Type Severity Reaction Status Date / Time cyclobenzaprine (From Allergy Severe I WENT Verified 01/16/25 11:23 FLEXERIL) BLIND bupropion (From WELLBUTRIN) Allergy Intermediate Swelling, Verified 01/16/25 11:23 ST, Itchy tongue divalproex sodium (From Allergy Unknown INSOMNIA,AND Verified 01/16/25 11:23 DEPAKOTE) OTHER RXNS doxycycline (DOXYCYCLINE) Allergy Unknown UNKNOWN, Verified 01/16/25 11:23 tongue swelling Flexeril Allergy Unknown lost vision Verified 01/16/25 11:23 lamotrigine (LAMOTRIGINE) Allergy Unknown UNKNOWN Verified 01/16/25 11:23 fluoxetine Allergy Unknown Verified 01/16/25 11:23 naproxen Allergy Unknown Verified 01/16/25 11:23 NSAIDS (Non-Steroidal Allergy Unknown Verified 01/16/25 11:23 Anti-Inflamma pantoprazole (From Protonix) Allergy Unknown Verified 01/16/25 11:23 pravastatin Allergy Unknown Verified 01/16/25 11:23 pregabalin (From Lyrica) Allergy Unknown Verified 01/16/25 11:23 sulfamethoxazole (From Allergy Unknown Verified 01/16/25 11:23 Bactrim) trimethoprim (From Bactrim) Allergy Unknown Verified 01/16/25 11:23 losartan AdvReac Intermediate sob Verified 01/16/25 11:23 Active Medications: Current Medications Acetaminophen (Acetaminophen 325 Mg Tablet) 650 mg PO Q6H PRN PRN Reason: Pain, Mild 1-3,fever,headache Calcium Carbonate (Calcium Carbonate 750 Mg Tab.Chew) 750 mg PO Q4H PRN PRN Reason: Heartburn Calcium Carbonate (Calcium Carbonate 750 Mg Tab.Chew) 750 mg PO DAILY [facility] Last Admin: 01/17/25 08:45 Dose: Not Given Ceftriaxone Sodium (Ceftriaxone Sodium 1 Gm Vial) 1 gm IVPUSH Q24H [facility] Cyanocobalamin (Cyanocobalamin (Vitamin B-12) 100 Mcg Tablet) 100 mcg PO DAILY [facility] Last Admin: 01/17/25 08:40 Dose: 100 mcg Gabapentin (Gabapentin 300 Mg Capsule) 600 mg PO DAILY PRN PRN Reason: Neuropathic pain Guaifenesin/Codeine Phosphate (Guaifen/Codeine Sf 200/20/10ml 10 Ml Liquid) 5 ml PO Q4H PRN PRN Reason: Cough Vancomycin HCl (Vancomycin/Ns) 2,000 mg in 500 mls @ 250 mls/hr IV ONCE ONE Stop: 01/17/25 15:29 Last Admin: 01/17/25 14:19 Dose: 250 mls/hr Vancomycin HCl 1,500 mg/ (Sodium Chloride) 500 mls @ 333.333 mls/hr IV Q24H [facility] Magnesium Hydroxide (Milk Of Magnesia 30 Ml Oral.Susp) 30 ml PO DAILY PRN PRN Reason: Constipation Magnesium Oxide (Magnesium Oxide 400 Mg Tablet) 400 mg PO DAILY [facility] Last Admin: 01/17/25 08:40 Dose: 400 mg Melatonin (Melatonin 3 Mg Tablet) 6 mg PO BEDTIME PRN PRN Reason: Insomnia Ondansetron HCl (Ondansetron Hcl 4 Mg/2 Ml Vial) 4 mg IVPUSH Q8H PRN PRN Reason: Nausea and Vomiting Last Admin: 01/17/25 12:24 Dose: 4 mg Oxycodone HCl (Oxycodone Hcl Immed Release 5 Mg Tablet) 5 mg PO Q4H PRN PRN Reason: Pain, Severe (Pain Scale 7-10) Pharmacy Consult (Consult Rx Vancomycin Dosing) 1 each MISCELLANE DAILY PRN PRN Reason: Consult order Sodium Chloride (0.9 % Sodium Chloride Flush 3 Ml Syringe) 3 ml IVFLUSH QSHIFT [facility] Last Admin: 01/17/25 08:42 Dose: 3 ml Vitamin D (Cholecalciferol (Vitamin D3) 25 Mcg Tablet) 25 mcg PO DAILY [facility] Last Admin: 01/17/25 08:39 Dose: 25 mcg Zinc Sulfate (Zinc Sulfate 220 Mg Capsule) 220 mg PO DAILY [facility] Last Admin: 01/17/25 08:40 Dose: 220 mg Home Medications ?Medication ?Instructions ?Recorded ?Confirmed ?Last Taken ?Type calcium carbonate (Calcium 600) 1,000 mg PO DAILY 11/0601/16/25 01/15/25 History cholecalciferol (vitamin D3) 25 25 mcg PO DAILY 01/16/25 01/15/25 History mcg (1,000 unit) capsule omega-3 fatty acids 1,000 mg 1,000 mg PO DAILY 3 01/16/25 01/15/25 History capsule cyanocobalamin (vitamin B-12) 100 100 mcg PO DAILY 03/3101/16/25 01/15/25 History mcg tablet (Vitamin B-12) garlic 100 mg tablet 100 mg PO DAILY 10/16/2305/0201/15/25 History magnesium oxide 300 mg PO DAILY 10/16/2305/0201/15/25 History zinc 100 mg tablet 100 mg PO DAILY 10/16/2305/0201/15/25 History melatonin 10 mg tablet 5 mg PO BEDTIME PRN Insomnia 06/14/24 01/16/25 Unknown History gabapentin 300 mg capsule 600 mg PO DAILY 01/16/2505/0201/15/25 History Physical Exam 2 Vital Signs: Vital Signs: Last Vital Signs Temp 97.9 F 01/17/25 07:54 Pulse 107 H 01/17/25 13:20 Resp 13 01/17/25 13:20 BP 113/67 01/17/25 13:20 Pulse Ox 96 01/17/25 13:20 O2 Del Method Room Air 01/17/25 13:20 BMI result Body Mass Index 31.2 Const: General: no acute distress and alert Nutritional Appearance: not obese Orientation/consciousness: Other orientation findings ( oriented) HEENT: Head: Yes atraumatic Eyes: General: appearance normal, both eyes and all related structures S clerae: sclerae normal EOM: EOMs intact bilaterally Neck: Neck: Yes supple Lymphatic: no lymphadenopathy noted Resp: Effort & Inspection: normal respiratory effort and no use of accessory muscles Auscultation: other (Diminished right basilar air movement) Cardio: Rate: tachycardic Rhythm: regular rhythm Heart sounds: no gallops, no murmurs and no rubs Skin: General skin exam: other ( warm) Extrem: General: No clubbing, No cyanosis and No edema Results Laboratory Findings 01/16/25 11:42 01/17/25 05:45 Abnormal lab findings: Abnormal Labs 01/16/25 01/16/25 01/16/25 11:42 15:31 18:45 RBC 3.82 L Hgb 11.8 L Hct 35.6 L MPV 9.2 L Lymph % (Auto) 18.7 L Eos % (Auto) 4.3 H VBG HCO3 34 H Carbon Dioxide 31 H Nasal Screen MRSA (PCR) POSITIVE A Nasal S. aureus Screen POSITIVE A 01/17/25 05:45 RBC Hgb Hct MPV Lymph % (Auto) Eos % (Auto) VBG HCO3 Carbon Dioxide 33 H Nasal Screen MRSA (PCR) Nasal S. aureus Screen Assessment and Plan (1) Pleural effusion: Status: Acute (2) Shortness of breath: Status: Acute Plan Impression: 79-year-old lady admitted with dyspnea and large right-sided pleural effusion. Recommendations: Suggest right-sided diagnostic/therapeutic thoracentesis with associated pleural studies. Will review pleural studies as available. Procedures Date of Service Date of Service: 01/17/25
[2025-01-17] MEDS: oxyCODONE HCl Immed Release 5 MG TABLET PO ×2 (14:34→20:13)
[2025-01-17] MEDS: guaiFEN/Codeine SF 200/20/10ML 10 ML LIQUID 5 ML PO ×2 (14:35→20:13)
[2025-01-17 14:49] LABS: Lymphocytes Pleural Fluid 64 %; Monocytes Pleural Fluid 5 %; Neutrophils Pleural Fluid 11 %
[2025-01-17 14:50] LABS: BF Shift QC OK YES; Eosinophils Pleural Fluid 8 %; Man Diluent Bkgrd OK YES; Other Cells Plerual Fl 12 %
[2025-01-17 15:54] VITALS: BP 106/59; PULSE 72; RESP 18; TEMP 37.4; O2SAT 100
--- NOTE | 2025-01-17 16:11 | MHC.CM.PN ---
IMM delivered. Patient lives in a senior housing apartment alone. Functionally independent. Denies use of DME or services. [facility] reports patient has [employer] 19 hrs/wk, patient reports this is not accurate and does not feel she needs [employer]. PCP Joaquin Leonard MD States she has an HCP naming her son, Janes, as HCA. Copy requested. DP: Goal is home self care. States she is not interested in any services. Her two daughters can assist her at home if needed. Son, Cj, to transport. CM will continue to follow.
[2025-01-17 20:12] VITALS: BP 128/58; PULSE 74; RESP 18; TEMP 37.7; O2SAT 95
--- NOTE | 2025-01-18 01:40 | PC.NURSE ---
Assumed care of this patient at ~19:00. Handoff report given to oncoming RN 23:00. Please see shift assessment and worklist for full details.
[2025-01-18 03:27] VITALS: BP 119/57; PULSE 68; RESP 16; TEMP 37; O2SAT 93
[2025-01-18] MEDS: oxyCODONE HCl Immed Release 5 MG TABLET PO ×5 (03:45→21:51)
[2025-01-18 06:08] LABS: Anion Gap 12 (12-20); Blood Urea Nitrogen 16 mg/dL (9-16); Calcium 8.3 mg/dL (8.4-10.2); Carbon Dioxide 29 mmol/L (22-29); Chloride 102 mmol/L (96-108); Creatinine Clr Calc Pharmacy 42.1; Estimated Glomerular Filt Rate 53; Potassium 4.1 mmol/L (3.3-5.1); Sodium 139 mmol/L (135-145)
[2025-01-18] MEDS: 0.9 % Sodium Chloride Flush 3 ML SYRINGE IVFLUSH ×2 (07:33→15:58)
[2025-01-18 08:00] VITALS: BP 117/57; PULSE 65; RESP 18; TEMP 36.7; O2SAT 92
--- NOTE | 2025-01-18 08:10 | HO.PM.IMPN ---
Subjective Subjective Date of Service: 01/18/25 Interval History: Thoracentesis yesterday with 1L of red fluid drained; appears exudative Back and right-sided pain yesterday, better today Feels less SOB, breathing better Review of Systems Review of Systems: Yes all other systems are reviewed and are negative Physical Exam Exam: Exam: General: AOx3, no acute distress Resp: CTA bilaterally CVS: S1, S2, RRR GI: +BS, NT, no distention Back: Dressing covering thoracentesis site; appropriate tenderness around site Skin: Warm, dry Neuro: Cranial nerves II-XII grossly intact bilaterally. Motor grossly intact bilaterally Extremities: No edema Psych: Appropriate affect Vital Signs: Vital Signs: Last Vital Signs Temp 98.1 F 01/18/25 08:00 Pulse 65 01/18/25 08:00 Resp 18 01/18/25 08:00 BP 117/57 L 01/18/25 08:00 Pulse Ox 92 01/18/25 08:00 O2 Del Method Room Air 01/18/25 08:00 BMI result Body Mass Index 31.2 Objective Data Active Medications Acetaminophen (Acetaminophen 325 Mg Tablet) 650 mg PO Q6H PRN PRN Reason: Pain, Mild 1-3,fever,headache Calcium Carbonate (Calcium Carbonate 750 Mg Tab.Chew) 750 mg PO Q4H PRN PRN Reason: Heartburn Calcium Carbonate (Calcium Carbonate 750 Mg Tab.Chew) 750 mg PO DAILY [facility] Last Admin: 01/17/25 08:45 Dose: Not Given Documented By: MARGARET Non-Admin Reason: Patient Refused Ceftriaxone Sodium (Ceftriaxone Sodium 1 Gm Vial) 1 gm IVPUSH Q24H [facility] Last Admin: 01/17/25 16:23 Dose: 1 gm Documented By: MARGARET Cyanocobalamin (Cyanocobalamin (Vitamin B-12) 100 Mcg Tablet) 100 mcg PO DAILY [facility] Last Admin: 01/17/25 08:40 Dose: 100 mcg Documented By: MARGARET Gabapentin (Gabapentin 300 Mg Capsule) 600 mg PO DAILY PRN PRN Reason: Neuropathic pain Last Admin: 01/17/25 16:23 Dose: 600 mg Documented By: MARGARET Guaifenesin/Codeine Phosphate (Guaifen/Codeine Sf 200/20/10ml 10 Ml Liquid) 5 ml PO Q4H PRN PRN Reason: Cough Last Admin: 01/17/25 20:13 Dose: 5 ml Documented By: STEFANIE Hydroxyzine HCl (Hydroxyzine Hcl 25 Mg Tablet) 25 mg PO QID PRN PRN Reason: Itching Vancomycin HCl 1,500 mg/ (Sodium Chloride) 500 mls @ 333.333 mls/hr IV Q24H [facility] Magnesium Hydroxide (Milk Of Magnesia 30 Ml Oral.Susp) 30 ml PO DAILY PRN PRN Reason: Constipation Magnesium Oxide (Magnesium Oxide 400 Mg Tablet) 400 mg PO DAILY [facility] Last Admin: 01/17/25 08:40 Dose: 400 mg Documented By: MARGARET Melatonin (Melatonin 3 Mg Tablet) 6 mg PO BEDTIME PRN PRN Reason: Insomnia Ondansetron HCl (Ondansetron Hcl 4 Mg/2 Ml Vial) 4 mg IVPUSH Q8H PRN PRN Reason: Nausea and Vomiting Last Admin: 01/18/25 00:07 Dose: 4 mg Documented By: KASI Oxycodone HCl (Oxycodone Hcl Immed Release 5 Mg Tablet) 5 mg PO Q4H PRN PRN Reason: Pain, Severe (Pain Scale 7-10) Last Admin: 01/18/25 07:33 Dose: 5 mg Documented By: CAROLIN Pharmacy Consult (Consult Rx Vancomycin Dosing) 1 each MISCELLANE DAILY PRN PRN Reason: Consult order Sodium Chloride (0.9 % Sodium Chloride Flush 3 Ml Syringe) 3 ml IVFLUSH QSHIFT [facility] Last Admin: 01/18/25 07:33 Dose: 3 ml Documented By: CAROLIN Vitamin D (Cholecalciferol (Vitamin D3) 25 Mcg Tablet) 25 mcg PO DAILY [facility] Last Admin: 01/17/25 08:39 Dose: 25 mcg Documented By: MARGARET Zinc Sulfate (Zinc Sulfate 220 Mg Capsule) 220 mg PO DAILY [facility] Last Admin: 01/17/25 08:40 Dose: 220 mg Documented By: MARAGRET Labs 01/16/25 11:42 01/18/25 05:16 Labs: Laboratory Results - last 24 hr 01/16/25 01/17/25 01/18/25 18:45 13:31 05:16 Hold Purple Top SEE NOTE Anion Gap 12 Estim Creat Clear Calc 42.1 Estimated GFR 53 Random Glucose 102 Calcium 8.3 L D Pleural pH 7.43 Pleural WBC 1.275 Pleural RBC 0.015 Pleural Neutrophils 11 Pleural Lymphocytes 64 Pleural Monocytes 5 Pleural Eosinophils 8 Pleural Other Cells 12 Pleural Total Protein 4.5 Pleural LDH 402 Nasal Screen MRSA (PCR) POSITIVE A Nasal S. aureus Screen POSITIVE A Nasal MRSA/S.aureus Interp SEE NOTE Microbiology Microbiology Results: Microbiology 01/17/25 13:31 Gram Stain - Final Thoracentesis Fluid Assessment and Plan (1) Pleural effusion: Status: Acute Plan Pt is an 79-year-old female with a PMH significant for?sciatica, osteoarthritis, C4-C6 fusion, and Schatzki ring who presents to the ED with?wheezing, SOB, IBRAHIM, and right-sided chest discomfort x10 days. Pt is admitted to the hospital for treatment and further evaluation of right-sided pleural effusion in setting of CHF vs pneumonia vs malignancy. Pulmonary effusion Imaging showing moderate to large right pleural effusion CTA negative for obvious malignancy; no hx of CHF, BNP WNL Received US-guided therapeutic and diagnostic thoracentesis on 01/18 with 1L of pleural fluid drained; pleural fluid studies appear exudative Will repeat CT of chest to evaluate to possible underlying malignancy Follow pleural fluid cytology Pulmonology following Pericardial effusion Echo showed moderate loculated pericardial effusion around right atrium without findings of tamponade No previous echos at [facility] or [facility] [place] consult Cardiac monitoring Question of pneumonia CTA showing patchy ground-glass and airspace opacities in both upper lobes and left lower lobe: Atypical infection vs asymmetric pulmonary edema No sepsis MRSA nasal screen positive; switch azithromycin to doxycycline Will empirically treat with ceftriaxone and vanco, day 3 Check Legionella Ag urine, strep pneumo Sciatica Continue gabapentin Osteoarthritis Tylenol as needed Full Code DVT Prophylaxis: Pneumatic compression until s/p thoracentesis Pt requires continued hospitalization for continued IV abx, respiraotry monitoring, and following pleural fluid studies. Quality Stroke Does the patient have a stroke diagnosis?: No VTE Prior VTE?: No VTE Risk Level:: Medical - moderate - high VTE Device Contraindication: N/A - Device Ordered VTE Drug Contraindication: Treatment Not Indicated
--- NOTE | 2025-01-18 08:39 | HE.PHANOTE ---
Re: Jessica Significant decline in renal function. Changing dose to 1250mg q24h, predicted AUC 528, predicted trough 16.1. Next trough 01/19 @ 1100.
[2025-01-18] MEDS: guaiFEN/Codeine SF 200/20/10ML 10 ML LIQUID 5 ML PO ×3 (08:56→21:51)
--- NOTE | 2025-01-18 13:12 | MHC.CM.PN ---
Per MD rounds patient not medically cleared for dc. CM will continue to follow.
[2025-01-18 15:38] VITALS: BP 127/59; PULSE 68; RESP 18; TEMP 37.2; O2SAT 96
[2025-01-18 19:41] VITALS: BP 137/70; PULSE 73; RESP 18; TEMP 36.7; O2SAT 93
[2025-01-19 03:21] VITALS: BP 143/61; PULSE 63; RESP 16; TEMP 36; O2SAT 95
[2025-01-19 06:42] LABS: Anion Gap 11 (12-20); Blood Urea Nitrogen 18 mg/dL (9-16); Calcium 8.6 mg/dL (8.4-10.2); Carbon Dioxide 29 mmol/L (22-29); Chloride 102 mmol/L (96-108); Creatinine Clr Calc Pharmacy 51.9; Estimated Glomerular Filt Rate > 60; Potassium 4.2 mmol/L (3.3-5.1); Sodium 138 mmol/L (135-145)
[2025-01-19 07:11] VITALS: BP 140/63; PULSE 70; RESP 16; TEMP 36.4; O2SAT 94
[2025-01-19] MEDS: 0.9 % Sodium Chloride Flush 3 ML SYRINGE IVFLUSH (07:33)
--- NOTE | 2025-01-19 11:59 | HE.PHANOTE ---
KARLO Changed dose to 750mg Q12H per subtherapeutic trough. New predicted trough 14.6, AUC 450. Next trough to be drawn 01/20 @1100.
[2025-01-19] MEDS: guaiFEN/Codeine SF 200/20/10ML 10 ML LIQUID 5 ML PO (12:25)
[2025-01-19 15:07] VITALS: BP 143/67; PULSE 65; RESP 16; TEMP 36.9; O2SAT 95
--- NOTE | 2025-01-19 15:30 | PM.CNCAR ---
History of Present Illness History of Present Illness Date of Service: 01/19/25 Chief complaint: Pleural effusion pericardial effusion Narrative: Pleasant 79 year female who is presenting with shortness of breath and left-sided pleural effusion. She had therapeutic thoracentesis and it is an exudate. She was treated for pneumonia and had an echocardiogram done which showed moderate loculated effusions around the right atrium. No tamponade physiology. Clinically also does not have any signs of tamponade. Denying any dizziness, lightheadedness. She is saying her breathing is better but she has some chest pain after the thoracentesis. She did not have any pleuritic chest pain at home. [facility] Past Medical History Medical History Generalized headaches Subarachnoid hemorrhage following injury with brief loss of consciousness but without open intracranial wound Pancreatitis Hiatal hernia Anxiety Depression Pulmonary nodule Thyroid nodule PUD (peptic ulcer disease) Blood pressure elevated without history of HTN Hypertension Family History Family History Mother No problems noted. Father No problems noted. Sister Breast cancer Sister Breast cancer Daughter No problems noted. Daughter No problems noted. Daughter No problems noted. Son No problems noted. Son No problems noted. Other Mental health disorder Substance use disorder Surgical History Surgical History History of esophagogastroduodenoscopy (EGD) H/O colonoscopy Hx of melanoma excision H/O cervical spine surgery History of lumbar surgery History of knee replacement History of cholecystectomy Social History Social History Household Members: None Housing: House Housing Other:: senior housing Do you presently have visiting nurse or other home services: No Alcohol intake: current Alcohol intake frequency: holidays/special occasions only Patient Tobacco Use Status: Never used Tobacco Smoked in Last 30 Days: No e-Cigarette/Vaping Use: Never Used Second Hand Smoke Exposure: No Currently Displaying Signs/Symptoms of Drug Intoxication Withdrawal: No Have you been hit, kicked, punched, or otherwise hurt by someone within the past year? If so, by whom?: No Do you feel safe in your current relationship?: No Current Relationship Is there a partner from a previous relationship who is making you feel unsafe now?: No Are you made to feel afraid or neglected: No Advance Directives: Yes Advance Directives Information Provided: No Advance Directives on File: No Advance Directives Date on File: 01/16/25 Do you have a plan to hurt others: No Plan Recently lost weight without trying: No How much weight loss: Not applicable Eating poorly because of decreased appetite: No Nutrition screen score: 0 Nutrition Risks: Dental problems Patient : No : No Poor oral hygiene: No service: No Current occupational status: retired Cognitive needs: No Hearing needs: No Vision needs: Yes Meds Allergies Allergy/AdvReac Type Severity Reaction Status Date / Time cyclobenzaprine (From Allergy Severe I WENT Verified 01/16/25 11:23 FLEXERIL) BLIND bupropion (From WELLBUTRIN) Allergy Intermediate Swelling, Verified 01/16/25 11:23 ST, Itchy tongue divalproex sodium (From Allergy Unknown INSOMNIA,AND Verified 01/16/25 11:23 DEPAKOTE) OTHER RXNS doxycycline (DOXYCYCLINE) Allergy Unknown UNKNOWN, Verified 01/16/25 11:23 tongue swelling Flexeril Allergy Unknown lost vision Verified 01/16/25 11:23 lamotrigine (LAMOTRIGINE) Allergy Unknown UNKNOWN Verified 01/16/25 11:23 fluoxetine Allergy Unknown Verified 01/16/25 11:23 naproxen Allergy Unknown Verified 01/16/25 11:23 NSAIDS (Non-Steroidal Allergy Unknown Verified 01/16/25 11:23 Anti-Inflamma pantoprazole (From Protonix) Allergy Unknown Verified 01/16/25 11:23 pravastatin Allergy Unknown Verified 01/16/25 11:23 pregabalin (From Lyrica) Allergy Unknown Verified 01/16/25 11:23 sulfamethoxazole (From Allergy Unknown Verified 01/16/25 11:23 Bactrim) trimethoprim (From Bactrim) Allergy Unknown Verified 01/16/25 11:23 losartan AdvReac Intermediate sob Verified 01/16/25 11:23 Active Medications: Current Medications Acetaminophen (Acetaminophen 325 Mg Tablet) 650 mg PO Q6H PRN PRN Reason: Pain, Mild 1-3,fever,headache Calcium Carbonate (Calcium Carbonate 750 Mg Tab.Chew) 750 mg PO Q4H PRN PRN Reason: Heartburn Calcium Carbonate (Calcium Carbonate 750 Mg Tab.Chew) 750 mg PO DAILY SNOW Last Admin: 01/19/25 07:45 Dose: Not Given Ceftriaxone Sodium (Ceftriaxone Sodium 1 Gm Vial) 1 gm IVPUSH Q24H [facility] Last Admin: 01/18/25 15:58 Dose: 1 gm Colchicine (Colchicine 0.6 Mg Tablet) 0.6 mg PO BID [facility] Last Admin: 01/19/25 15:09 Dose: 0.6 mg Cyanocobalamin (Cyanocobalamin (Vitamin B-12) 100 Mcg Tablet) 100 mcg PO DAILY [facility] Last Admin: 01/19/25 07:32 Dose: 100 mcg Gabapentin (Gabapentin 300 Mg Capsule) 600 mg PO DAILY PRN PRN Reason: Neuropathic pain Last Admin: 01/19/25 07:31 Dose: 600 mg Guaifenesin/Codeine Phosphate (Guaifen/Codeine Sf 200/20/10ml 10 Ml Liquid) 5 ml PO Q4H PRN PRN Reason: Cough Last Admin: 01/19/25 12:25 Dose: 5 ml Hydroxyzine HCl (Hydroxyzine Hcl 25 Mg Tablet) 25 mg PO QID PRN PRN Reason: Itching Vancomycin HCl 750 mg/ Sodium (Chloride) 265 mls @ 265 mls/hr IV Q12H [facility] Last Infusion: 01/19/25 14:06 Dose: Infused Magnesium Hydroxide (Milk Of Magnesia 30 Ml Oral.Susp) 30 ml PO DAILY PRN PRN Reason: Constipation Magnesium Oxide (Magnesium Oxide 400 Mg Tablet) 400 mg PO DAILY [facility] Last Admin: 01/19/25 07:32 Dose: 400 mg Melatonin (Melatonin 3 Mg Tablet) 6 mg PO BEDTIME PRN PRN Reason: Insomnia Ondansetron HCl (Ondansetron Hcl 4 Mg/2 Ml Vial) 4 mg IVPUSH Q8H PRN PRN Reason: Nausea and Vomiting Last Admin: 01/18/25 00:07 Dose: 4 mg Oxycodone HCl (Oxycodone Hcl Immed Release 5 Mg Tablet) 5 mg PO Q4H PRN PRN Reason: Pain, Severe (Pain Scale 7-10) Last Admin: 01/18/25 21:51 Dose: 5 mg Pharmacy Consult (Consult Rx Vancomycin Dosing) 1 each MISCELLANE DAILY PRN PRN Reason: Consult order Sodium Chloride (0.9 % Sodium Chloride Flush 3 Ml Syringe) 3 ml IVFLUSH QSHIFT [facility] Last Admin: 01/19/25 07:33 Dose: 3 ml Vitamin D (Cholecalciferol (Vitamin D3) 25 Mcg Tablet) 25 mcg PO DAILY [facility] Last Admin: 01/19/25 07:32 Dose: 25 mcg Zinc Sulfate (Zinc Sulfate 220 Mg Capsule) 220 mg PO DAILY [facility] Last Admin: 01/19/25 07:32 Dose: 220 mg Home Medications ?Medication ?Instructions ?Recorded ?Confirmed ?Last Taken ?Type calcium carbonate (Calcium 600) 1,000 mg PO DAILY 11/20/22 01/16/25 01/15/25 History cholecalciferol (vitamin D3) 25 25 mcg PO DAILY 11/20/22 01/16/25 01/15/25 History mcg (1,000 unit) capsule omega-3 fatty acids 1,000 mg 1,000 mg PO DAILY 11/20/22 01/16/25 01/15/25 History capsule cyanocobalamin (vitamin B-12) 100 100 mcg PO DAILY 10/16/23 01/16/25 01/15/25 History mcg tablet (Vitamin B-12) garlic 100 mg tablet 100 mg PO DAILY 10/16/23 01/16/25 01/15/25 History magnesium oxide 300 mg PO DAILY 10/16/23 01/16/25 01/15/25 History zinc 100 mg tablet 100 mg PO DAILY 10/16/23 01/16/25 01/15/25 History melatonin 10 mg tablet 5 mg PO BEDTIME PRN Insomnia 06/14/24 01/16/25 Unknown History gabapentin 300 mg capsule 600 mg PO DAILY 01/16/25 01/16/25 01/15/25 History Physical Exam Vital Signs: Vital Signs: Last Vital Signs Temp 98.4 F 01/19/25 15:07 Pulse 65 01/19/25 15:07 Resp 16 01/19/25 15:07 BP 143/67 H 01/19/25 15:07 Pulse Ox 95 01/19/25 15:07 O2 Del Method Room Air 01/19/25 15:07 BMI result Body Mass Index 31.2 GENERAL APPEARANCE: in no acute distress, pleasant. NECK: no carotid bruit, no jugular venous distention. SKIN: no suspicious lesions, warm and dry. HEART: no murmurs, regular rate and rhythm. LUNGS: clear to auscultation bilaterally. ABDOMEN: soft, nontender. EXTREMITIES: no edema. PERIPHERAL PULSES: equal. NEUROLOGIC: No gross deficits, AAO X 3 Objective Labs and Meds 01/16/25 11:42 01/19/25 06:06 Lab results: Laboratory Results - last 24 hr 01/19/25 01/19/25 06:06 11:07 Hold Purple Top SEE NOTE Sodium 138 Potassium 4.2 Chloride 102 Carbon Dioxide 29 Anion Gap 11 L BUN 18 H Creatinine 0.82 Estim Creat Clear Calc 51.9 Estimated GFR > 60 Random Glucose 111 Calcium 8.6 Random Vancomycin 9.9 L Assessment and Plan (1) Pericardial effusion: Status: Acute Plan Moderate pericardial effusion around the right atrium in an 79-year-old lady with left pleural effusion. I think etiology is likely related to the left pleural pathology. No tamponade clinically. Add colchicine 0.6 mg daily. We will repeat echocardiography in few weeks to reassess the effusion. Thank you for allowing me to participate in the care of your patient. Please feel free to contact me if you have any questions. Procedures Date of Service Date of Service: 01/19/25
--- NOTE | 2025-01-19 16:03 | P.DS_ITS ---
DS: Providers Provider Date of Service: 01/19/25 Date of admission: 01/16/25 15:55 Date of discharge: 01/19/25 Primary care physician: Joaquin Leonard MD Consults: 01/16/25 17:19 Consult to Pulmonology Routine Consulting Provider: [facility] [place] [facility] Reason for consultation: Right pleural effusion, no pulm or cardiac hx 01/18/25 14:20 Consult to Cardiology Routine Consulting Provider: [facility] [place] [facility] Reason for consultation: Echo showing moderate loculated pericardial effusion DS: Diagnosis Discharge Diagnosis (1) Pericardial effusion: Status: Acute DS: Summary Hospital Course Hospital Course: From admission HPI: Date of Service: 01/16/25 Attending physician on admission: Delphine Frias Chief Complaint: SOB Pt is an 79-year-old female with a PMH significant for?sciatica, osteoarthritis, C4-C6 fusion, and Schatzki ring who presents to the ED with?wheezing, SOB, IBRAHIM, and right-sided chest discomfort x10 days. Pt has been having cough with ?thick white? sputum that today was a little bit yellow. Has overall been feeling weak and had difficulty moving, especially with exertion. Right-sided chest discomfort is nonradiating and worse with exertion. Chronic headache at baseline. Denies chest pain or pressure. No nausea, vomiting, diarrhea, or abdominal pain. Pt denies any recent unintended weight loss, fever, chills, or night sweats. In the ED pt was hypertensive up to 159/70, vitals otherwise stable. Labs were overall grossly unremarkable and around baseline for pt. No leukocytosis. Stable H&H. No significant electrolyte abnormalities. Renal and hepatic function at baseline. Troponin WNL at 3.9. BNP WNL at 63. Tested negative for flu, COVID, and RSV. CXR showed moderate to large volume right-sided pleural effusion, and acute airspace disease RLL and questionable right middle lobe. Underlying neoplasm can not be excluded. CTA of chest negative for pulmonary embolism, but showed moderate to large right pleural effusion, and patchy ground-glass and airspace opacities in both upper lobes and in left lower lobe: Atypical infection vs asymmetric pulmonary edema. Pt was treated in the ED with ceftriaxone and azithromycin. Pt is admitted to the hospital for treatment and further evaluation of right-sided pleural effusion in setting of CHF vs pneumonia vs malignancy. Hospital Course Pt was admitted to the hospital for large right-sided pleural effusion for which she underwent thoracentesis that drained 1 L of pleural fluid that was likely exudative. G stain showed 1+ polys, 3+ red blood cells, but no organism seen. Anaerobic culture and body fluid culture without growth after 48 hours. Cytology studies still pending. Etiology of pleural effusion unclear; CTA negative for PE or obvious neoplasm, and repeat CT of chest after thoracentesis likewise negative for underlying malignancy. Pt was empirically treated with IV antibiotics for community-acquired pneumonia and will be discharged on lev ofloxacin 750 mg p.o. x5 days. Pt should follow up with Dr. Hodge in pulmonology in 1-2 weeks. Pt also underwent echocardiogram which showed preserved LVEF 60-65% and normal diastolic function for age. Did find moderate loculated pericardial effusion around the right atrium. Pt was started on colchicine and will be discharged on 0.6 mg daily for the next 3 months. Pt should follow up with Dr. Driver in cardiology for repeat echo in the next 2-3 weeks. For Sciatica continue gabapentin For osteoarthritis continue Tylenol as needed Time Attestation Discharge Coordination Time (in mins): 36 Quality: Safe Use of Opioids Does Pt have an Active Cancer Diagnosis on the Problem List?: No Quality: Stroke Does the patient have a stroke diagnosis?: No Physical Exam Exam: Exam: General: AOx3, no acute distress Resp: CTA bilaterally CVS: S1, S2, RRR GI: +BS, NT, no distention Back: Dressing covering thoracentesis site; appropriate tenderness around site Skin: Warm, dry Neuro: Cranial nerves II-XII grossly intact bilaterally. Motor grossly intact bilaterally Extremities: No edema Psych: Appropriate affect Vital Signs: Vital Signs: Last Vital Signs Temp 98.4 F 01/19/25 15:07 Pulse 65 01/19/25 15:07 Resp 16 01/19/25 15:07 BP 143/67 H 01/19/25 15:07 Pulse Ox 95 01/19/25 15:07 O2 Del Method Room Air 01/19/25 15:07 BMI result Body Mass Index 31.2 DS: Data Data Completed and Pending Pending studies at discharge: Pending at discharge 01/18/25 10:43 Cytology [PTH] Routine Labs on day of discharge: Laboratory Results - last 24 hr 01/19/25 01/19/25 06:06 11:07 Hold Purple Top SEE NOTE Sodium 138 Potassium 4.2 Chloride 102 Carbon Dioxide 29 Anion Gap 11 L BUN 18 H Creatinine 0.82 Estim Creat Clear Calc 51.9 Estimated GFR > 60 Random Glucose 111 Calcium 8.6 Random Vancomycin 9.9 L Preliminary micro results at discharge 01/17/25 13:31 Anaerobic Culture - Preliminary Thoracentesis Fluid No growth to date. Discharge Plan Discharge Anticipated Discharge Date/Time: 01/19/25 15:24 Patient Disposition: Home, Self-Care Discharge Diagnosis: Pleural effusion in the setting of pneumonia Referrals: Frank Driver MD [Physician, Cardiology] - 1 Week Referral Note: Pericardial effusion Daniel Hodge MD [Physician, Pulmonology] - 1 Week Referral Note: Pleural effusion Po,Joaquin Esparza MD [Primary Care Provider, Internal Medicine] - 1 Week Discharge Medications: New colchicine 0.6 mg capsule 0.6 mg PO DAILY Qty: 90 0RF Rx Instructions: Take one capsule twice a day for the first day (01/20) and then once daily after that for the next 3 months. levofloxacin 750 mg tablet 750 mg PO DAILY Qty: 5 0RF Rx Instructions: Take one tablet daily for the next five days Continued zinc 100 mg Tablet 100 mg PO DAILY cyanocobalamin (vitamin B-12) [Vitamin B-12] 100 mcg Tablet 100 mcg PO DAILY garlic 100 mg Tablet 100 mg PO DAILY magnesium oxide 300 mg magnesium Tablet 300 mg PO DAILY melatonin 10 mg tablet 5 mg PO BEDTIME PRN (Reason: Insomnia) gabapentin 300 mg capsule 600 mg PO DAILY calcium carbonate [Calcium 600] 600 mg calcium (1,500 mg) tablet 1,000 mg PO DAILY cholecalciferol (vitamin D3) 25 mcg (1,000 unit) capsule 25 mcg PO DAILY omega-3 fatty acids 1,000 mg capsule 1,000 mg PO DAILY Discharge Orders: Discharge Order (Routine); Ordered 01/19/25 Ordered By: Jeniffer Hartman Activity on Discharge: As tolerated Stand Alone Forms: Patient Portal Discharge page Print Language: Tongan Care Plan Goals: See below Health Concerns: Pleural effusion Pericardial effusion Community-acquired pneumonia Plan of Treatment: -- You were admitted to the hospital for SOB and difficulty breathing in the setting of large pericardial effusion. You underwent thoracentesis and had a large amount of fluid drained from your pleural cavity. You were empirically treated with antibiotics for possible pneumonia. Additional workup with incidental finding of a small pericardial effusion. You will be discharged on antibiotics for the pneumonia and anti-inflammatories for the pericardial effusion. -- For pneumonia, take levofloxacin 750mg one daily for the next 5 days -- For pericardial effusion, take colchicine 0.6 mg twice a day for tomorrow only, then take once daily after that for the next 3 months. You should follow up with Dr. Driver in Cardiology in a few weeks for repeat echocardiogram. -- For pleural effusion, initial CT and repeat CT of chest were negative for any clear malignancy. Currently pleural fluid cultures are negative, but cytology is still pending. Follow up with Dr. Hodge in pulmonology in 1-2 weeks for repeat imaging and follow up studies. -- You should resume all of your other home medicaitons Assessment: See discharge summary Discharge Date/Time: 01/19/25 16:40
--- NOTE | 2025-01-19 16:09 | MHC.CM.PN ---
Patient medically cleared for dc home self care via private transport.
[2025-01-19 16:29] VITALS: BP 147/73; PULSE 71; RESP 16; TEMP 36.3; O2SAT 96
[2025-01-20 18:58] LABS: Strep Pneumo Ag urine Not Detected (Not Detected)
== END 2025-01-19 16:40 | disposition home or self-care (01) | DRG 194 ==
LOC: HO.ED 15:51 → HO.EDOVER 16:07 → HO.S3 16:19
PROVIDERS: Physician Assistant Medical; Radiology Diagnostic Radiology; Registered Nurse Emergency; Admitting Provider Student in an Organized Health Care Education/Training Program; Emergency Provider Emergency Medicine; PCP Internal Medicine; Visit Provider Student in an Organized Health Care Education/Training Program
PROC: 0W993ZZ Drainage of Right Pleural Cavity, Percutaneous Approach (ICD-10-PCS; principal; 2025-01-17 13:00)
DX: J18.9 Pneumonia, unspecified organism (principal); J91.8 Pleural effusion in other conditions classified elsewhere; M19.90 Unspecified osteoarthritis, unspecified site; M54.30 Sciatica, unspecified side; Z98.1 Arthrodesis status; Z22.322 Carrier or suspected carrier of Methicillin resistant Staphylococcus aureus; Z20.822 Contact with and (suspected) exposure to COVID-19; Z79.899 Other long term (current) drug therapy
CPT/HCPCS: 32555; 36415; 71046; 71250; 71275; 80048; 80053; 80202; 82803; 83615; 83880; 83986; 84157; 84484; 85025; 87070; 87073; 87205; 87449; 87637; 87640; 87641; 87899; 88112; 88305; 88341; 88342; 89051; 93306; 99285; J0696; J1938; J2003; J2405; J3373; J3374; Q9957; Q9967

== ENCOUNTER → 2025-01-16 11:18 | Outpatient (BNV) | payer OTHER, SELFPAY | PROVIDERS: PCP Internal Medicine; Visit Provider Radiology Diagnostic Radiology | DX: R05.9 Cough, unspecified (principal); R06.02 Shortness of breath | CPT/HCPCS: 71046; 71275 ==

== ENCOUNTER 2025-01-16 15:55 | Outpatient (BNV) | payer OTHER, SELFPAY | END 2025-01-17 13:25 | PROVIDERS: Admitting Provider Student in an Organized Health Care Education/Training Program; Emergency Provider Emergency Medicine; PCP Internal Medicine; Visit Provider Radiology Diagnostic Radiology | DX: J90 Pleural effusion, not elsewhere classified (principal) | CPT/HCPCS: 71046 ==

== ENCOUNTER 2025-01-16 15:55 | Outpatient (BNV) | payer OTHER, SELFPAY | END 2025-01-18 11:22 | PROVIDERS: Admitting Provider Student in an Organized Health Care Education/Training Program; Emergency Provider Emergency Medicine; PCP Internal Medicine; Visit Provider Radiology Diagnostic Radiology | DX: J90 Pleural effusion, not elsewhere classified (principal); J81.0 Acute pulmonary edema | CPT/HCPCS: 71250 ==

== ENCOUNTER 2025-01-16 15:55 | Outpatient (BNV) | payer OTHER, SELFPAY | END 2025-01-17 07:00 | PROVIDERS: Admitting Provider Student in an Organized Health Care Education/Training Program; Emergency Provider Emergency Medicine; PCP Internal Medicine; Visit Provider Internal Medicine Cardiovascular Disease | DX: I31.39 Other pericardial effusion (noninflammatory) (principal); J90 Pleural effusion, not elsewhere classified | CPT/HCPCS: 93306 ==

== ENCOUNTER → 2025-01-16 15:55 | Outpatient (BNV) | payer OTHER, SELFPAY | PROVIDERS: Admitting Provider Student in an Organized Health Care Education/Training Program; Emergency Provider Emergency Medicine; PCP Internal Medicine; Visit Provider Internal Medicine Pulmonary Disease | DX: J90 Pleural effusion, not elsewhere classified (principal); R06.02 Shortness of breath | CPT/HCPCS: 99222 ==

== ENCOUNTER → 2025-01-16 15:55 | Outpatient (BNV) | payer OTHER, SELFPAY | PROVIDERS: Admitting Provider Student in an Organized Health Care Education/Training Program; Emergency Provider Emergency Medicine; PCP Internal Medicine; Visit Provider Internal Medicine Cardiovascular Disease | DX: I31.39 Other pericardial effusion (noninflammatory) (principal) | CPT/HCPCS: 99222 ==

== ENCOUNTER → 2025-01-16 15:55 | Outpatient (BNV) | payer OTHER, SELFPAY | PROVIDERS: Admitting Provider Student in an Organized Health Care Education/Training Program; Emergency Provider Emergency Medicine; PCP Internal Medicine; Visit Provider Student in an Organized Health Care Education/Training Program | DX: J90 Pleural effusion, not elsewhere classified (principal) | CPT/HCPCS: 99223; 99233 ==

== ENCOUNTER 2025-01-25 08:40 | Outpatient (AMB) | payer OTHER, SELFPAY ==
--- OUTSIDE RECORDS SUMMARY | 2023-09-04 06:30 | XMS_ITS ---
Author Organization [facility] Address [address] [place] [id number] Care Team Providers Care Computing Consultant Name Role Phone Joaquin Leonard MD Primary Care Provider Omero Mann [phone] REASON FOR VISIT esophageal dysphagia, gerd Encounters Encounter Location Date Provider Diagnosis [facility] Outpatient [address] [place], [place] [id number] 09/04/2023 Omero Farah Plan Of Treatment No Information Progress Notes * IAN VAUGHN ADOB: [birth year] (79 yo F)Acc No.[id number]:09/04/2023 EGD/MAC Patient: IAN CALDWELL Provider: Devendra Farah MD :1945 A ge:77 Y S ex:Female Date:09/04/2023 Address:[address] [place] [address] [address], [id number] Pcp:Joaquin Leonard MD Subjective: * Chief Complaints: [...] Farah MD Date: 09/04/2023 Generated for Michelle louise/Fabarrong/eTransmitting on: 0 01/25/2025 09:21 AM EDT
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
--- OUTSIDE RECORDS SUMMARY | 2025-01-25 09:21 | XMS_ITS | Patient Health Record ---
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 Alfredo has [...] and speech therapy evaluation. Problem Esophageal stricture (91013829) Esophageal stricture (K22.2) Active confirmed Plan Of Treatment Pending Test Test Name Order Date EGD 03/15/2019 Insurance Providers Payer Name Payer Address Payer Phone Subscriber Number Group Number Insured Name Patient Relationship to Insured Coverage Start Date Coverage End Date [employer] HMO [address] [address] Ranjitrosa elena colon, GOPAL [phone] [id number] NONE Selena Alfredo Self - patient is the insured 9 [employer] [facility] Plus [address] [address] [place] [address] [id number] Selena Alfredo Self - patient is the insured Medical (General) History Medical History History ICD Code Anxiety ( PTSD) with Panic Attacks Gastric ulcer Hiatal hernia Pancreatitis in 2017 Vitamin B12 deficiency Vitamin D deficiency Cataracts - bilateral Thyroid nodule Surgical History Surgery Date(Month/Year) Cholecystectomy 2014 Catarct surgery 02-15-2019
--- OUTSIDE RECORDS SUMMARY | 2025-01-25 09:21 | XMS_ITS | Clinical Summary ---
Author Organization [facility] Address [address] [place] [address] Phone Care Team Providers Care Slagger Name Role Phone Joaquin Leonard MD Primary Care Provider [phone] Social History Tobacco Use Types Packs/Day Years Used Date Smoking Tobacco: Never Assessed Education Answer Date Recorded Are you interested in more education? Not on ricky e 10/04/2022 Are you concerned about learning? Not on file 10/04/2022 No 10/04/2022 No 10/04/2022 Digital Access Answer Date Recorded No 11/04/2022 No 11/04/2022 Reliable internet access at home? Not on file 11/04/2022 Device with a working camera? Not on file Comments Unknown Sex and Gender Information Value Date Recorded Sex Assigned at Not on file Legal Sex Female 3:17 PM EDT Gender Identity Not on file Sexual Orientation Not on file Plan of Treatment Health Maintenance Due Date Last Done Comments Adult Td,Tdap Booster 1945 DEPRESSION SCREENING 1955 PNEUMOCOCCAL VACCINES (50+ y ears) (1 of 1 - PCV) 12/07/1993 ZOSTER VACCINES (1 of 2) 12/07/1993 OSTEOPOROSIS SCREENING INITI AL (ONE-TIME) 12/07/2008 RSV VACCINE (1 - 1-dose 75+ series) 12/07/2018 COVID-19 VACCINE ( - 2023-2 5 season) 2024 HEPATITIS A VACCINES Aged Out No long er eligible based on patient's age to complete this topic HIB VACCINES Aged Out No longer eligi ble based on patient's age to complete this topic MENINGOCOCCAL VACCINES (ACWY) Aged Out No longer eligible based on patient's age to complete this topic MENINGOCOCCAL VACCINES (B) Aged Out N o longer eligible based on patient's age to complete this topic Medical Devices Not on file Insurance MEDICARE REPLACEMENT MEDICARE REPLACEMENT MEDICARE REPLACEMENT [place]IC[place] [place] [address] MEDICARE REPLACEMENT MEDICARE REPLACEMENT [facility] MEDICARE REPLACEMENT Care Teams Slagger Relationship Specialty Start Date End Date Horacio Joaquin Ugarte MD [address] [place] [address] PCP - General Internal Medicine 08/26/23 Additional Source Comments The information contained in this document represents components of the legal health record. It is not the complete legal health record.[facility]
[2025-01-25 09:22] VITALS: BP 108/58; PULSE 73; O2SAT 97
== END 2025-01-25 09:53 | disposition home or self-care (01) ==
LOC: HO.HMCH 08:41
PROVIDERS: PCP Internal Medicine; Visit Provider Internal Medicine
DX: C79.9 Secondary malignant neoplasm of unspecified site (principal); I10 Essential (primary) hypertension; F43.10 Post-traumatic stress disorder, unspecified

== ENCOUNTER → 2025-01-25 08:40 | Outpatient (BNVA) | payer OTHER, SELFPAY | PROVIDERS: PCP Internal Medicine; Visit Provider Internal Medicine | DX: I10 Essential (primary) hypertension (principal); C79.89 Secondary malignant neoplasm of other specified sites; F43.10 Post-traumatic stress disorder, unspecified | CPT/HCPCS: 96127; 99212 ==

== ENCOUNTER 2025-02-01 08:39 | Outpatient (REF) | payer OTHER, SELFPAY ==
--- OUTSIDE RECORDS SUMMARY | 2023-09-04 06:30 | XMS_ITS ---
Author Organization [facility] Address [address] [place] [address] Care Team Providers Care Art Psychotherapist Or Therapist Name Role Phone Joaquin Leonard MD Primary Care Provider Omero Mann [phone] REASON FOR VISIT esophageal dysphagia, gerd Encounters Encounter Location Date Provider Diagnosis [facility] Out[facility] [address] [place], [place] [id number] 09/04/2023 Omero Farah Plan Of Treatment No Information Progress Notes * IAN VAUGHN ADOB: [birth year] (79 yo F)Acc No.[id number]:09/04/2023 EGD/MAC Patient: IAN CALDWELL Provider: Devendra Farah MD :1945 A ge:77 Y S ex:Female Date:09/04/2023 Address:[address] [place] [address] [address], [id number] Pcp:Joaquin Leonard MD Subjective: * Chief Complaints: [...] Farah MD Date: 09/04/2023 Generated for Michelle louise/Jv/eTransmitting on: 0 02/01/2025 09:01 AM EDT
--- OUTSIDE RECORDS SUMMARY | 2023-10-19 09:40 | XMS_ITS ---
Author Organization [facility] Address [address] [place] [address] Care Team Providers Care Digital Campaign Manager Name Role Phone Joaquin Leonard MD Primary Care Provider Omero Mann Unavailable [phone] REASON FOR VISIT dysphagia,gastroesophageal reflux disease with out esophagitis Problems Problem Type SNOMED Code ICD Code Onset Dates Problem Status W/U Status Risk Notes Problem Gastro-esophagea l reflux disease without esophagitis (830667803) Gastro-esophage al reflux disease without esophagitis (K21.9) Active confirmed Problem Dysphagia (26490520) Dysphagia (R13.10) Active confirmed Encounters Encounter Location Date Provider Diagnosis [facility] Outpatient [address] [place], [place] [id number] 10/19/2023 Omero Farah Gastro-esophageal reflux disease without esophagitis K21.9 ; Dysphagia R13.10 and Hiatal hernia K44.9 Assessments Encounter Date Diagnosis (ICD Code) Assessment Notes Treatment Notes Treatment Clinical Notes Section Notes 10/19/2023 Gastro-esophagea l reflux disease without esophagitis (ICD-10 - K21.9) 10/19/2023 Dysphagia (ICD-10 - R13.10) 10/19/2023 Hiatal hernia (ICD-10 - K44.9) Plan Of Treatment No Information Progress Notes * IAN VAUGHN ADOB: [birth year] (79 yo F)Acc No.[id number]:10/19/2023 EGD/MAC Patient: Rosemarie PADILLAIAN Provider: Devendra Farah MD :1945 A ge:77 Y S ex:Female Date:10/19/2023 Address:[address] [place] [address], [facility] Pcp:Joaquin Leonard MD Subjective: * Chief Complaints: * 1 . Dysphagia,gastroesophageal reflux disease with out esophagitis. * Medical History: Objective: * Vitals: Assessment: * Assessment: 1. G navarro-esophageal reflux disease without esophagitis - K21.9 (Primary) 2 .?Dysphagia - R13.10 3 . H iatal hernia - K44.9 Plan: * Treatment: * Procedure Codes: 4 3249 ESOPH ENDOSCOPY, DILATION, 55315 UPPER GI ENDOSCOPY, BIOPSY, Modifiers: 59 * * The named appointment provid er may or may not be the originator of this progress note, and it is not deemed complete until electronically signed by the appointment provider. Sign off status: Pending * Provider: Devendra Farah MD Date: 0 10/19/2023 Generated for Michelle louise/Jv/Joshuasmitting on: 0 02/01/2025 09:01 AM EDT
--- OUTSIDE RECORDS SUMMARY | 2024-02-10 10:20 | XMS_ITS ---
Author Organization [facility] Address [address] [place] [id number] Care Team Providers Care Environmental Sciences Professor Name Role Phone Joaquin Leonard MD Primary Care Provider Omero Mann [phone] REASON FOR VISIT Patient presents today for dysphagia, gerd Encounters Encounter Location Date Provider Diagnosis [facility] [address] [place] [id number] 02/10/2024 Omero Farah Plan Of Treatment No Information Progress Notes * IAN VAUGHN ADOB: [birth year] (79 yo F)Acc No.[id number]:02/10/2024 Progress Notes Patient: IAN CALDWELL Provider: Devendra Farah MD :1945 A ge:78 Y S ex:Female Date:02/10/2024 Address:[address] [place] [address] [address], [id number] Pcp:Joaquin Leonard MD Subjective: * Chief Complaints: * 1 . Patient presents today for dysphagia, gerd. * Medical History: Objective: * Vitals: Assessment: Plan: * Treatment: * * The named appointment provid er may or may not be the originator of this progress note, and it is not deemed complete until electronically signed by the appointment provider. Sign off status: Pending * Provider: Devendra Farah MD Date: 02/10/2024 Generated for Michelle louise/Fabarrong/eTransmitting on: 02/01/2025 09:01 AM EDT
--- NOTE | ~2025-02-01 | XR_ITS ---
EXAMINATION: XR CHEST CLINICAL INFORMATION: C79.9 - Secondary malignant neoplasm of unspecified site COMPARISON: Chest x-ray 01/17/2025. Correlation made with CT chest 01/18/2025. TECHNIQUE: 2 views of the chest were obtained. FINDINGS: The cardiac, hilar, and mediastinal contours are normal. Aortic mural calcification. Lungs demonstrate increased bronchovascular markings diffusely. There is a suggestion of diffuse small airway thickening. There is a nodular opacity in the right middle lobe distribution, suspicious. This is more prominent than previously. There is a small right layering pleural effusion. There is no left effusion. There is no pneumothorax. There is no focal osseous or soft tissue abnormality. Cervical fusion device incidentally noted. XR/XR chest 2V IMPRESSION: 1. Increasing nodular opacity right middle lobe distribution. This may represent pneumonia although malignancy is not excluded. 2. Small layering right pleural effusion. Electronically signed by: Mikey Hooper MD 02/01/2025 09:07 AM EDT
--- OUTSIDE RECORDS SUMMARY | 2025-02-01 09:01 | XMS_ITS | Patient Health Record ---
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 Problem Esophageal stricture (08465134) Esophageal stricture (K22.2) Active confirmed Plan Of Treatment Pending Test Test Name Order Date EGD 03/15/2019 Insurance Providers Payer Name Payer Address Payer Phone Subscriber Number Group Number Insured Name Patient Relationship to Insured Coverage Start Date Coverage End Date [employer] Mcr HMO [address] [address] Ranjitrosa elena colon, GOPAL [phone] [id number] NONE Selena Alfredo Self - patient is the insured 9 [employer] [facility] Plus [address] [address] [place] [address] [id number] Selena Alfredo Self - patient is the insured Medical (General) History Medical History History ICD Code Anxiety ( PTSD) with Panic Attacks Gastric ulcer Hiatal hernia Pancreatitis in 2017 Vitamin B12 deficiency Vitamin D deficiency Cataracts - bilateral Thyroid nodule Surgical History Surgery Date(Month/Year) Cholecystectomy 2014 Catarct surgery 02-15-2019
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
--- OUTSIDE RECORDS SUMMARY | 2025-02-01 09:02 | XMS_ITS | Clinical Summary ---
Author Organization [facility] Address [address] [place] [address] Phone Care Team Providers Care Manager Banquet Name Role Phone Joaquin Leonard MD Primary Care Provider [phone] Social History Tobacco Use Types Packs/Day Years [...] REPLACEMENT MEDICARE REPLACEMENT MEDICARE REPLACEMENT MEDICARE [place] [address] [place] [address] MEDICARE REPLACEMENT MEDICARE REPLACEMENT [facility] MEDICARE REPLACEMENT Care Teams Manager Banquet Relationship Specialty Start Date End Date Horacio Joaquin Ugarte MD [address] [place] [address] PCP - General Internal Medicine 08/26/23 Additional Source Comments The information contained in this document represents components of the legal health record. It is not the complete legal health record.[facility]
== END 2025-02-01 08:40 | disposition home or self-care (01) ==
LOC: HO.XRAY 08:39
PROVIDERS: PCP Internal Medicine; Visit Provider Internal Medicine
DX: J90 Pleural effusion, not elsewhere classified (principal); C79.9 Secondary malignant neoplasm of unspecified site
CPT/HCPCS: 71046; 99212

== ENCOUNTER → 2025-02-01 08:44 | Outpatient (BNV) | payer OTHER, SELFPAY | PROVIDERS: PCP Internal Medicine; Visit Provider Radiology Diagnostic Radiology | DX: C79.9 Secondary malignant neoplasm of unspecified site (principal); R91.8 Other nonspecific abnormal finding of lung field; J90 Pleural effusion, not elsewhere classified | CPT/HCPCS: 71046 ==

== ENCOUNTER 2025-02-01 08:58 | Outpatient (AMB) | payer OTHER, SELFPAY ==
[2025-02-01 09:03] VITALS: BP 140/67; PULSE 67; O2SAT 97; BMI 29.0
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
== END 2025-02-01 09:39 | disposition home or self-care (01) ==
LOC: HO.HPS 08:59
PROVIDERS: PCP Internal Medicine; Visit Provider Internal Medicine Pulmonary Disease
DX: J90 Pleural effusion, not elsewhere classified (principal); C79.9 Secondary malignant neoplasm of unspecified site
CPT/HCPCS: 99214

== ENCOUNTER → 2025-02-02 11:00 | Outpatient (BNV) | payer OTHER, SELFPAY | PROVIDERS: PCP Internal Medicine; Referring Provider Internal Medicine; Visit Provider Internal Medicine | DX: C57.7 Malignant neoplasm of other specified female genital organs (principal); J91.0 Malignant pleural effusion | CPT/HCPCS: 99205; G2211 ==

== ENCOUNTER → 2025-02-23 10:32 | Outpatient (REF) | payer OTHER, SELFPAY ==
--- NOTE | 2025-02-23 10:44 | CA_ITS ---
Transthoracic Echocardiogram Patient (Last, First, Middle): Selena Alfredo A Gender: Female Date of : 1945 Age: 79 Procedure Date: 02/23/2025 Procedure Type: Transthoracic Echocardiogram Location: OP Height: 157.48 cm Weight: 73.03 kg BSA: 1.74 m2 Heart Rate: bpm BP: 140 / 67 mmHg Mdm Sr: CIRO Referring MD: Frank Driver MD Symptoms: I31.39 - Other pericardial effusion (noninflammatory) Study Quality: Fair Conclusions: - There is a trivial pericardial effusion. Findings Pericardium/Pleural There is a trivial pericardial effusion. Prior Study Comparison Changes noted compared to prior study dated: 01/20/2025. Improvement in pericardial effusion. Measurements Mitral Valve E'Lateral: 8.05 E'Medial: 5.77 Diastolic Function E'Medial: 5.77 E' Laterial: 8.05 Tricuspid Valve RA Press: 3.00 Updated in Other Vendor System with Status of Final Karsten Mcdonnell MD electronically signed on 02/25/2025 11:19:34 AM with status of Final
--- OUTSIDE RECORDS SUMMARY | 2025-02-23 12:36 | XMS_ITS | Clinical Summary ---
Author Organization [facility] Address [address] [place] [id number] Phone Care Team Providers Care Track Inspector Name Role Phone Joaquin Leonard MD Primary Care Provider [phone] Social History Tobacco Use Types Packs/Day Years [...] VACCINE (1 - 1-dose 75+ series) 12/07/2018 INFLUENZA VACCINE (#1) 2025 COVID-19 VACCINE ( - 2023-2 5 season) 2025 HEPATITIS A VACCINES Aged Out No long [...] topic Medical Devices Not on file Insurance MAGALYS GALE[employer]O [id number] [employer] [place] [id number] MEDICARE REPLACEMENT MEDICARE REPLACEMENT MEDICARE REPLACEMENT Care Teams Track Inspector Relationship Specialty Start Date End Date Joaquin Leonard MD [address] [place] [address] PCP - General Internal Medicine 08/26/23 Additional Source Comments The information contained in this document represents components of the legal health record. It is not the complete legal health record.[facility]
== END ==
LOC: HO.CARD 10:32
PROVIDERS: PCP Internal Medicine; Visit Provider Internal Medicine Cardiovascular Disease
DX: I31.39 Other pericardial effusion (noninflammatory) (principal)
CPT/HCPCS: 93308

== ENCOUNTER → 2025-02-23 10:44 | Outpatient (BNV) | payer OTHER, SELFPAY | PROVIDERS: PCP Internal Medicine; Visit Provider Internal Medicine | DX: I31.39 Other pericardial effusion (noninflammatory) (principal) | CPT/HCPCS: 93308 ==

== ENCOUNTER 2025-03-16 12:25 | Outpatient (AMB) | payer OTHER, SELFPAY ==
--- NOTE | 2025-03-16 12:33 | A.OFFPC_ITS ---
Vital Signs 03/16/25 12:34 Height 5 ft 2 in Weight 158 lb 4 oz BMI 28.9 BP 148/70 H Blood Pressure Location Lt brachial Position Sitting Pulse 81 Pulse Source Pulse Oximeter Temp 97.0 F Temp Source Temporal Artery Scan Pulse Oximetry (%) 96 Oxygen Delivery Method Room Air Intake Visit Reasons: Annual Exam Accompanied by: Daughter Allergies cyclobenzaprine (From FLEXERIL) Allergy (Severe, Verified 03/16/25 12:36) I WENT BLIND bupropion (From WELLBUTRIN) Allergy (Intermediate, Verified 03/16/25 12:36) Swelling, ST, Itchy tongue divalproex sodium (From DEPAKOTE) Allergy (Unknown, Verified 03/16/25 12:36) INSOMNIA,AND OTHER RXNS doxycycline (DOXYCYCLINE) Allergy (Unknown, Verified 03/16/25 12:36) UNKNOWN, tongue swelling Flexeril Allergy (Unknown, Verified 03/16/25 12:36) lost vision lamotrigine (LAMOTRIGINE) Allergy (Unknown, Verified 03/16/25 12:36) UNKNOWN fluoxetine Allergy (Verified 03/16/25 12:36) Unknown naproxen Allergy (Verified 03/16/25 12:36) Unknown NSAIDS (Non-Steroidal Anti-Inflamma Allergy (Verified 03/16/25 12:36) Unknown pantoprazole (From Protonix) Allergy (Verified 03/16/25 12:36) Unknown pravastatin Allergy (Verified 03/16/25 12:36) Unknown pregabalin (From Lyrica) Allergy (Verified 03/16/25 12:36) Unknown sulfamethoxazole (From Bactrim) Allergy (Verified 03/16/25 12:36) Unknown trimethoprim (From Bactrim) Allergy (Verified 03/16/25 12:36) Unknown losartan Adverse Reaction (Intermediate, Verified 03/16/25 12:36) sob Medication List - Last Reconciled 03/16/25 by Joaquin Leonard MD cholecalciferol (vitamin D3) 25 mcg PO DAILY melatonin 5 mg PO BEDTIME PRN oxycodone 5 mg PO BID PRN prochlorperazine maleate 10 mg PO Q6H PRN zinc 100 mg PO DAILY Tobacco use date assessed: 03/16/25 Fall risk assessment: 1 Fall in past year Last assessed Fall Risk: 03/16/25 Dental Screening Dental Screen Date: 03/16/25 Did you have a dental visit in the last 12 months?: No Did you have a dental problem in the last 6 months where you did not have access to dental care?: No Was dental information given to patient?: No [facility] Medical History Generalized headaches Subarachnoid hemorrhage following injury with brief loss of consciousness but without open intracranial wound Pancreatitis Hiatal hernia Anxiety Depression Pulmonary nodule Thyroid nodule PUD (peptic ulcer disease) Blood pressure elevated without history of HTN Hypertension Surgical History History of esophagogastroduodenoscopy (EGD) H/O colonoscopy Hx of melanoma excision H/O cervical spine surgery History of lumbar surgery History of knee replacement History of cholecystectomy Family History Mother No problems noted. Father No problems noted. Sister Breast cancer Sister Breast cancer Daughter No problems noted. Daughter No problems noted. Daughter No problems noted. Son No problems noted. Son No problems noted. Other Mental health disorder Substance use disorder Social History Household Members: None Housing: House Housing Other:: senior housing Do you presently have visiting nurse or other home services: No Alcohol intake: current Alcohol intake frequency: holidays/special occasions only Patient Tobacco Use Status: Never used Tobacco e-Cigarette/Vaping Use: Never Used Second Hand Smoke Exposure: No Substance Use Type: Marijuana Advance Directives Date on File: 01/16/25 service: No Current occupational status: retired Cognitive needs: No Hearing needs: No Vision needs: Yes Questionnaire PHQ-9 Over the last 2 weeks, how often have you been bothered by any of the following problems? 1. Little interest or pleasure in doing things: more than half the days 2. Feeling down, depressed, or hopeless: not at all 3. Trouble falling or staying asleep, or sleeping too much: not at all 4. Feeling tired or having little energy: not at all 5. Poor appetite or overeating: not at all 6. Feeling bad about yourself - or that you are a failure or have let yourself or your family down: not at all 7. Trouble concentrating on things, such as reading the newspaper or watching television: not at all 8. Moving or speaking so slowly that other people could have noticed. Or the opposite - being so fidgety or restless that you have been moving around a lot more than usual: not at all 9. Thoughts that you would be better off or of hurting yourself in some way: not at all Total score: 2 Depression Screening Interpretation: Negative Depression Screening Done: Yes Source: Developed by Drs. Omero Back, Adriana Suarez, Emerson Tanner and colleagues, with an educational blaine from [employer]. Thrive Questionnaire Date Thrive assessed: 01/25/25 I am a: Patient What is your living situation today?: I have a steady place to live Within the past 12 months, did the food you bought not last and you didn't have the money to get more?: Often true Within the past 12 months, did you worry whether your food would run out before you got money to buy more?: Often true Do you have trouble paying for medicines?: No Do you have trouble getting transportation to medical appointments?: Yes Do you have trouble paying your heating and electricity bill?: No Do you have trouble taking care of your child, family member or friend?: No Do you have trouble with day-to-day activities such as bathing, preparing meals, shopping, managing finances, etc.?: No Are you currently unemployed and looking for a job?: No Are you interested in more education?: No Please select the resources that you would like help with: None Currently or been in a relationship where the following occur: No concerns reported THRIVE Score: 3 AUDIT C Alcohol Use Questionnaire (AUDIT-C) 1. How often do you have a drink containing alcohol?: Never 3. How often do you have six or more drinks on one occasion?: Never Total Score: 0 RAEANN-7 AMB Questionnaire RAEANN-7 Date RAEANN - 7 assessed: 01/25/25 Feeling nervous, anxious, or on edge: 0 = Not at all Not being able to stop or control worryin = Not at all Worrying too much about different things: 0 = Not at all Trouble relaxin = Not at all Being so restless that it is hard to sit still: 0 = Not at all Becoming easily annoyed or irritable: 0 = Not at all Feeling afraid as if something awful might happen: 0 = Not at all Total RAEANN-7 score (0-4 normal; 5-9 mild; 10-14 moderate; 15-21 severe): 0 Source: Developed by Drs. Omero Back, Adriana Suarez, Emerson Tanner and colleagues, with an educational blaine from [employer]. Review of Systems Const Denies poor appetite and Denies weakness Eyes Denies no additional complaints ENT Reports Normal hearing present, Denies dizziness, Denies nasal congestion, Denies tinnitus and Denies sore throat Card Denies chest pain, Denies syncope, Denies rapid heart rate and Denies dyspnea Resp Denies cough and Denies dyspnea GI Denies change in stool character, Reports constipation, Denies diarrhea, Denies nausea and Denies vomiting Denies urinary frequency, Denies difficulty voiding and Denies dysuria Neuro Reports Normal hearing present, Denies confusion, Denies dizziness, Denies syncope and Denies weakness Psych Denies confusion Physical exam (Primary Care) Vital Signs: Last Vital Signs Temp 97.0 F 03/16/25 12:34 Pulse 81 03/16/25 12:34 BP 148/70 H 03/16/25 12:34 Pulse Ox 96 03/16/25 12:34 Oxygen Delivery Method Room Air 03/16/25 12:34 BMI result Body Mass Index 28.9 Tobacco/Smoking Status: Tobacco use Status Tobacco use date assessed 03/16/25 03/16/25 12:40 Patient Tobacco Use Status Never used Tobacco 03/16/25 12:33 e-Cigarette/Vaping Use Never Used 03/16/25 12:33 PHQ-9: PHQ-9 Score PHQ-9: Total score 2 03/16/25 12:44 Depression Screening Interpretation: Negative Thrive Assessment: Date of Thrive Assessment Date Thrive assessed 01/25/25 03/16/25 12:33 Currently or been in a relationship where the following occur: No concerns re ported Const General: No confusion Orientation/consciousness: No confusion HENMT Head: Yes normocephalic Ears: external ears normal and TM's normal bilaterally Face and sinus: Yes normal facial exam Mouth: moist mucous membranes Throat: Yes tonsils normal Eyes Conjunctivae: conjunctivae normal Pupils: Equal, round and reactive pupils present and Pupil accommodation reflex normal Direct Ophthalmoscopy: normal light reflex Neck Neck: No lymphadenopathy Thyroid: Thyroid normal Chest Chest palpation & inspection: normal inspection of the chest Resp Effort & Inspection: normal respiratory effort and no audible wheezes Auscultation: clear to auscultation bilaterally, no crackles, no wheezes and lung sounds not diminished Cardio Rate: regular rate Rhythm: regular rhythm Peripheral pulses: radial pulses present and dorsalis pedis present GI Palpation (GI): no masses Auscultation: normal bowel sounds and normoactive bowel sounds Rectal Exam - Female: deferred Skin General skin exam: no rashes or lesions noted Rashes: no rashes Neuro General: No confusion Cranial nerves: Yes Equal, round and reactive pupils present and Yes Normal hearing present Cognition (Neuro): normal cognition Gait exam (Neuro): Normal gait present Motor exam (neuro): 5/5 motor strength present throughout Deep tendon reflexes (DTR's): Right brachioradialis reflex intensity grade: 2+, Left brachioradialis reflex intensity grade: 2+, Right patellar reflex intensity grade: 2+ and Left patellar reflex intensity grade: 2+ Extrem General: No edema Coding Level of Care Code Est Pt Prev Care >65y(38409) Diagnoses Annual physical exam Z00.00 Metastatic cancer C79.9 GERD (gastroesophageal reflux disease) K21.9 Overweight (BMI 25.0-29.9) E66.3 Osteoporosis M81.0 PTSD (post-traumatic stress disorder) F43.10 Assessment & Plan Assessment & Plan (1) Annual physical exam: Code(s): Z00.00 - Encounter for general adult medical examination without abnormal findings Category: Medical Plan: Patient is advised to eat healthy, keep well hydrated, keep active and have adequate sleep. 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 (3) GERD (gastroesophageal reflux disease): Comment: May 2023Trace laryngeal penetration with thick barium 2. Large anterior osteophyte at level of C3-4, however, no significant mass effect. 3. Presbyesophagus. Patulous esophagus. 4. Small type I hiatal hernia 5. Severe gastroesophageal reflux 6. Multiple small areas of contrast pooling in the fundus and body the stomach suggestive of erosive gastritis. Code(s): K21.9 - Gastro-esophageal reflux disease without esophagitis Category: Medical Plan: Avoid the foods that causes that usually spicy foods, tomato products, juices, coffee, soda and foods that your sensitive to. After eating do not lie down, allow 3-4 hours before in lie down. And keep the head of bed above 30 degrees to avoid the acid from going up. (4) Overweight (BMI 25.0-29.9): Code(s): E66.3 - Overweight Category: Medical Plan: Diet and exercise (5) Osteoporosis: Comment: 2021 Code(s): M81.0 - Age-related osteoporosis without current pathological fracture Category: Medical Plan: Discussed about bone density (6) PTSD (post-traumatic stress disorder): Comment: [facility] 2022 Code(s): F43.10 - Post-traumatic stress disorder, unspecified Category: Medical Plan: Continue with counseling and therapy Plan History of Present Illness The patient is an 79-year-old female presenting with a history of hypertension and osteoporosis. Her last bone density test in October 2022 was reported as good. She has a history of cervical and lumbar postlaminectomy syndrome, which has been a persistent issue. These conditions have likely contributed to her chronic pain management challenges. 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 She has been undergoing systemic therapy and has seen both hematology and gynecologic oncology specialists. She also reports a history of arthritis, which exacerbates her pain, particularly in the knees. The arthritis has been managed with pain medication, including oxycodone, which she takes as needed. The patient has experienced anxiety, for which she has been prescribed Prozac and Ativan to manage her symptoms. She reports that the anxiety is related to her ongoing health issues and the stress of managing multiple conditions. Health Maintenance - Bone density test in October 2022 was good. - Last echocardiogram in February showed trivial pericardial effusion. - PET scan in February 2025 showed moderate right-sided pleural effusion and mild FDG activity. - Last blood work in January showed anemia with hemoglobin at 11.8 g/dL. - CA-125 levels were elevated. Social History Review of Systems - Musculoskeletal: Reports arthritis-related knee pain. - Psychiatric: Reports anxiety related to health issues. Physical Exam General: Cooperative, overweight, appears comfortable, no acute distress, and well developed Orientation: Patient oriented x3 Limitations: No limitations Head: Normal to inspection Ears: Hearing grossly normal bilaterally Nose: Normal external nose present Face and sinus: Normal facial exam Eyes: Appearance normal, both eyes and all related structures Neck: Normal visual inspection and Yes full ROM Respiratory: Normal respiratory effort and able to speak in complete sentences. Clear to auscultation bilaterally Cardiovascular: Regular rate and rhythm. Normal S1 and S2 GI: Normal to inspection. Soft to palpation and nontender Skin: No rashes or lesions noted Neuro: Patient oriented x3 Extremities: Normal to inspection Results - Labs: Anemia with hemoglobin at 11.8 g/dL, CA-125 elevated. - Imaging: Echocardiogram showed trivial pericardial effusion; PET scan showed moderate right-sided pleural effusion and mild FDG activity. Plan Patient was informed and verbally consented to the use of an ambient scribe for clinic note documentation during this visit. 1. Hypertension The patient's hypertension is being monitored, with no specific changes in management discussed during this visit. 2. Osteoporosis The patient's osteoporosis is stable, with a recent bone density test in October 2022 showing good results. 3. Cervical Postlaminectomy Syndrome The patient continues to manage cervical postlaminectomy syndrome, contributing to her chronic pain issues. 4. Lumbar Postlaminectomy Syndrome The lumbar postlaminectomy syndrome remains a source of chronic pain, with management focused on pain control. 5. Metastatic Carcinoma Of Ovarian Origin The patient is undergoing systemic therapy for metastatic carcinoma of ovarian origin, with follow-up by gynecologic oncology. 6. Anemia The patient's anemia is being monitored, with recent lab results showing hemoglobin at 11.8 g/dL. 7. Anxiety The patient is managing anxiety with Prozac and Ativan, prescribed to help alleviate symptoms related to her health conditions. 8. Arthritis The patient's arthritis is being managed with pain medication, including oxycodone, as needed for knee pain. Discussion Notes During the visit, we discussed the management of the patient's chronic conditions, including hypertension, osteoporosis, and metastatic carcinoma of ovarian origin. We reviewed her recent diagnostic results, including the PET scan and blood work, and discussed the continuation of her current treatment regimen. The patient was advised to continue her medications as prescribed and to follow up with her specialists as needed. Patient Instructions - Continue taking prescribed medications, including Prozac and Ativan, as directed. - Follow up with gynecologic oncology and other specialists as scheduled. - Monitor blood pressure regularly and report any significant changes. - Maintain a healthy diet and exercise routine to support overall health. Medications: New fluoxetine 10 mg PO DAILY 30 tabs 2RF F43.10 - Post-traumatic stress disorder, unspecified lorazepam 0.5 mg PO BEDTIME PRN 30 tabs 0RF agitation 30 days F43.10 - Post- traumatic stress disorder, unspecified colchicine 0.6 mg PO DAILY 30 tabs 0RF F43.10 - Post-traumatic stress disorder, unspecified
[2025-03-16 12:34] VITALS: BP 148/70; PULSE 81; TEMP 36.1; O2SAT 96; BMI 28.9
== END 2025-03-16 13:14 | disposition home or self-care (01) ==
PROVIDERS: PCP Internal Medicine; Visit Provider Internal Medicine
DX: Z00.00 Encounter for general adult medical examination without abnormal findings (principal); C79.9 Secondary malignant neoplasm of unspecified site; K21.9 Gastro-esophageal reflux disease without esophagitis; E66.3 Overweight; M81.0 Age-related osteoporosis without current pathological fracture; F43.10 Post-traumatic stress disorder, unspecified

== ENCOUNTER → 2025-03-16 12:25 | Outpatient (BNVA) | payer OTHER, SELFPAY | PROVIDERS: PCP Internal Medicine; Visit Provider Internal Medicine | DX: Z00.00 Encounter for general adult medical examination without abnormal findings (principal); I10 Essential (primary) hypertension; M81.0 Age-related osteoporosis without current pathological fracture; M96.1 Postlaminectomy syndrome, not elsewhere classified; C56.9 Malignant neoplasm of unspecified ovary; C79.89 Secondary malignant neoplasm of other specified sites; K21.9 Gastro-esophageal reflux disease without esophagitis; E66.3 Overweight; F43.10 Post-traumatic stress disorder, unspecified; D64.9 Anemia, unspecified; F41.9 Anxiety disorder, unspecified; M19.90 Unspecified osteoarthritis, unspecified site; Z13.31 Encounter for screening for depression | CPT/HCPCS: 96127; 99397 ==

== ENCOUNTER 2025-04-26 13:25 | Outpatient (AMB) | payer OTHER, SELFPAY ==
[2025-04-26 13:30] VITALS: BP 140/78; PULSE 100; TEMP 36.7; O2SAT 97; BMI 26.2
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
--- OUTSIDE RECORDS SUMMARY | 2025-04-27 01:23 | XMS_ITS | Patient Health Record ---
Author Organization [facility] Address [address] [place] [address] Care Team Providers Care Supervisor Purification Name Role Phone Joaquin Leonard MD Primary Care Provider Omero Mann [phone] Allergies Allergen (clinical drug ingredient) Drug/Non Drug Allergy documented on EMR Reaction Allergy Type Onset Date Status sulfamethoxazole / trimethoprim Bactrim Unknown Drug Allergy Active hydromorphone Dilaudid Unknown Drug Allergy Act darius valproate Divalproex Sodium Unknown Drug Allergy Active Flexeril Unknown Drug Allergy Active pregabalin Lyrica Unknown Drug Allergy Active naproxen Naproxen Unknown Drug Allergy Active gabapentin Neurontin Unknown Drug Allergy Active pantoprazole Protonix Unknown Drug Allergy Acti ve Wellbutrin Unknown Drug Allergy Active fluoxetine Fluoxetine Unknown Drug Allergy Activ e gabapentin Gabapentin Unknown Drug Allergy Activ e Non-steroidal anti-inflammatory agent (FN) NSAIDs Unknown Drug Allergy Active pravastatin Pravastatin Unknown Drug Allergy Act darius Reason For Referral No Information Medications Medication SIG (Take, Route, Frequency, Duration) Notes Start Date End Date Status Alcira 500 MG Capsule as directed Orally Active Garlic 100 MG Tablet as directed Orally Active Turmeric 1053 MG Tablet as directed Orally Active Omeprazole 40 MG Capsule Delayed Release TAKE 1 CAPSULE BY MOUTH EVERY MORNING; Duration: 30 Active [place]inchester 3 1000 MG Capsule 1 capsule Orally Once a day; Duration: 30 day(s) Active Magnesium 300 MG Capsule 1 capsule with a meal Orally Once a day; Duration: 30 day(s) Active Gabapentin 300 MG Capsule Oral; Duration: 90 Active Vitamin D-3 25 MCG (1000 UT) Capsule 1 capsule Orally Once a day; Duration: 30 day(s) Active Doxepin HCl 3 MG Tablet TAKE 1 TABLET BY MOUTH AT BEDTIME NEEDED FOR SLEEP Oral; Duration: 30 Active Calcium 1 tab Oral; Duration : 14 days Active hydroCHLOROthiazide 12.5 MG Tablet Oral; Duration: 90 Active Vitamin B 12 100 MCG Lozenge as directed Orally Active Benadryl Allergy 25 MG Tablet 1 tablet a t bedtime as needed Orally Once a day; Duration: 30 day(s) Active Melatonin 10 MG Capsule as directed Orally Active Zinc 100 MG Tablet 1 tablet Orally Once a day; Duration: 30 day(s) Active Immunizations Vaccine Route Administration Date Status Comme nts Influenza Unknown 05/27/2023 Refused Social History Tobacco Use: Social History Observation Description Date Details (start date - stop date) Never Smoker NA - NA Social History Drugs/Alcohol: Social Info Question Answer Notes Alcohol Screen Did you have a drink containing alcohol in the past year? No Points 0 Interpretation Negative Tobacco Use: Social Info Question Answer Notes Tobacco Use/Smoking Patient is a nonsmoker Additional Details Category Social Info Options Details Miscellaneous: Marital status: Occupation: Retired Section Notes: Nonsmoker; no sig alcohol Nonsmoker; no sig alcohol Problems Problem Type SNOMED Code ICD Code Onset Dates Problem Status W/U Status Risk Notes Problem Gastro-esophageal reflux disease without esophagitis (499946426) Gastro-esophageal reflux disease without esophagitis (K21.9) Active confirmed Problem Pharyngeal dysphagia (62287754071916) Dysphagia, pharyngoesophageal phase (R13.14) Active confirmed Problem Dysphagia (03368401) Dysphagia (R13.10) Active confirmed Problem Gastroesophageal reflux disease with esophagitis (429261970) Gastroesophageal reflux disease with esophagitis (K21.0) Active confirmed Problem Gastroesophageal reflux disease without esophagitis (551961913) Gastroesophageal reflux disease without esophagitis (K21.9) Active confirmed Problem Dysphagia (53332571) Pharyngoesophageal dysphagia (R13.14) Active confirmed Problem Esophageal dysphagia (26730801) Esophageal dysphagia (R13.19) Active confirmed Plan Of Treatment Pending Test [...] Insured Coverage Start Date Coverage End Date [facility] [address] Attn Claims MAGAL[place] [id number] IAN VAUGHN Self - patient is the insured Medical (General) History Medical History History ICD Code Denies AK,DM,CVA,renal disease PTSD/Depression/Anxiety Seeing Dr. Solomon for some type of lung d isease Reports a negative colonoscopy in 2015 EGD's in [address] Blair at [facility]--hiatal hernia, mild reflux, and gastritis EGD 06/2017 with a small to m oderate-sized hiatal hernia--dilated EGJ up to a 20mm balloon. There was no Bose's esophagus and no eosinophilic esophagitis on biopsies Describes an episode of panc reatitis while living in [place] in approximately 2019 Chronic pain for which she is using irineo pentin Surgical History Surgery Date(Month/Year) Spine surgery C6-7 and L4-5 Cholecystectomy 2012 Melanoma excision-on chest wall Knee replacement 05/2020 Knee replacement 05/2022
--- OUTSIDE RECORDS SUMMARY | 2025-04-27 01:23 | XMS_ITS | Patient Health Record ---
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 Alfredo has [...] and speech therapy evaluation. Problem Esophageal stricture (98125000) Esophageal stricture (K22.2) Active confirmed Plan Of Treatment Pending Test Test Name Order Date EGD 03/15/2019 Insurance Providers Payer Name Payer Address Payer Phone Subscriber Number Group Number Insured Name Patient Relationship to Insured Coverage Start Date Coverage End Date [employer] Co [facility] HMO [address] [address] [facility] [place] [id number] NONE Selena Alfredo Self - patient is the insured [employer] [facility] [employer] [address] [address] [place] [phone] [id number] Selena Alfredo Self - patient is the insured Medical (General) History Medical History History ICD Code Anxiety ( PTSD) with Panic Attacks Gastric ulcer Hiatal hernia Pancreatitis in 2017 Vitamin B12 deficiency Vitamin D deficiency Cataracts - bilateral Thyroid nodule Surgical History Surgery Date(Month/Year) Catarct surgery 02-15-2019 Cholecystectomy 2014
--- OUTSIDE RECORDS SUMMARY | 2025-04-27 01:23 | XMS_ITS | Clinical Summary ---
Author Organization [facility] Address [address] [place] [id number] Phone Care Team Providers Care Survey Research Associate Name Role Phone Joaquin Leonard MD Primary Care Provider [phone] Social History Tobacco Use Types Packs/Day Years [...] VACCINE (#1) 2025 COVID-19 VACCINE ( - 2024-2 6 season) 2025 HEPATITIS A VACCINES Aged Out No long er eligible based on patient's age to complete this topic HIB VACCINES Aged Out No longer eligi ble based on patient's age to complete this topic IPV VACCINES Aged Out No longer eligi ble based on patient's age to complete this topic MENINGOCOCCAL VACCINES (ACWY) Aged Out No longer eligible based on patient's age to complete this topic MENINGOCOCCAL VACCINES (B) Aged Out N o longer eligible based on patient's age to complete this topic Medical Devices Not on file [place] [address] [place] [address] MEDICARE REPLACEMENT [facility] [place] [id number] [facility] MEDICARE REPLACEMENT [facility] MEDICARE [facility]PLACEMENT [facility] MEDICARE REPLACEMENT [facility] MEDICARE REPLACEMENT [place] [address] [place] [address] MEDICARE REPLACEMENT [facility] MEDICARE REPLACEMENT Care Teams Survey Research Associate Relationship Specialty Start Date End Date Joaquin Leonard MD [address] [place] [id number] PCP - General Internal Medicine 08/26/23 Additional Source Comments The information contained in this document represents components of the legal health record. It is not the complete legal health record.[facility]
== END 2025-04-26 15:02 | disposition home or self-care (01) ==
LOC: HO.HMCH 13:25
PROVIDERS: PCP Internal Medicine; Visit Provider Internal Medicine
DX: C79.9 Secondary malignant neoplasm of unspecified site (principal); K21.9 Gastro-esophageal reflux disease without esophagitis; I10 Essential (primary) hypertension; F32.9 Major depressive disorder, single episode, unspecified

== ENCOUNTER → 2025-04-26 13:25 | Outpatient (BNVA) | payer OTHER, SELFPAY | PROVIDERS: PCP Internal Medicine; Visit Provider Internal Medicine | DX: I10 Essential (primary) hypertension (principal); C79.82 Secondary malignant neoplasm of genital organs; K21.9 Gastro-esophageal reflux disease without esophagitis; F32.9 Major depressive disorder, single episode, unspecified | CPT/HCPCS: 96127; 99212 ==